=== PATIENT | female | born 1960 | race Two or more races ===

== ENCOUNTER → 2020-01-25 10:59 | Outpatient (BNVA) | payer OTHER, SELFPAY | PROVIDERS: PCP Internal Medicine; Referring Provider Internal Medicine; Visit Provider Internal Medicine Endocrinology, Diabetes & Metabolism | DX: E11.9 Type 2 diabetes mellitus without complications (principal); I10 Essential (primary) hypertension; E78.5 Hyperlipidemia, unspecified; E66.3 Overweight; Z68.25 Body mass index [BMI] 25.0-25.9, adult; E04.9 Nontoxic goiter, unspecified; R00.2 Palpitations; Z79.899 Other long term (current) drug therapy | CPT/HCPCS: 82947; 99202 ==

== ENCOUNTER 2020-01-25 11:54 | Outpatient (REF) | payer OTHER, SELFPAY ==
[2020-01-25 14:06] LABS: Cholesterol 125 mg/dL; HDL Cholesterol 38 mg/dL; LDL Cholesterol Calculated 65 mg/dl; Triglycerides 112 mg/dL
[2020-01-25 14:24] LABS: Creatinine Urine 132.74 mg/dL; Microalbum/Creatinine Ratio Ur 6.7 ug/mg cr
[2020-01-25 14:28] LABS: Free T4 (Free Thyroxine) 1.36 ng/dL (0.71-1.85); Thyroid Stimulating Hormone 0.42 mIU/mL (0.32-4.0)
[2020-01-25 15:05] LABS: Vitamin B12 402 pg/mL (200-900)
[2020-01-27 22:27] LABS: Thyroglobulin Antibodies <1 IU/mL (< or = 1); Thyroid Peroxidase Antibodies 6 IU/mL (<9)
[2020-01-29 10:06] LABS: LDL Cholesterol Direct 63 mg/dL (<100)
== END 2020-01-25 11:55 | disposition home or self-care (01) ==
LOC: HO.10HDL 11:54
PROVIDERS: Visit Provider Internal Medicine Endocrinology, Diabetes & Metabolism
DX: E11.9 Type 2 diabetes mellitus without complications (principal); E04.9 Nontoxic goiter, unspecified
CPT/HCPCS: 36415; 80061; 82043; 82607; 83721; 84439; 84443; 86376; 86800

== ENCOUNTER 2020-01-28 09:10 | Outpatient (REF) | payer OTHER, SELFPAY ==
--- NOTE | 2020-01-28 | MM_ITS ---
EXAMINATION: MM SCREENING DIGITAL BREAST TOMOSYNTHESIS, BILATERAL CLINICAL INFORMATION: Screening. Asymptomatic. No prior breast imaging. Age 59. Family history breast cancer (maternal aunt, 60s). The lifetime risk of breast cancer based on the Tyrer-Cuzick Model is 9%. COMPARISON: None (current study represents initial baseline exam). TECHNIQUE: Digital breast tomosynthesis is performed in both the craniocaudal and mediolateral oblique views along with computer-aided detection (CAD). Synthesized 2D images are generated from the tomosynthesis. FINDINGS: There are scattered areas of fibroglandular density (ACR BI-RADS breast composition Category b). There are no significant masses, abnormal calcifications, or other abnormalities. The axilla and skin contours are unremarkable. MM/MM tomosynthesis screening BI IMPRESSION: No mammographic evidence of malignancy. ASSESSMENT: BI-RADS 1: Negative RECOMMENDATION: Routine annual mammography screening. This patient's information was entered into a reminder system with a target due date for their next mammogram.
== END 2020-01-28 09:11 | disposition home or self-care (01) ==
LOC: HO.MAMMO 09:10
PROVIDERS: PCP Internal Medicine; Visit Provider Internal Medicine
DX: Z12.31 Encounter for screening mammogram for malignant neoplasm of breast (principal)
CPT/HCPCS: 77063; 77067

== ENCOUNTER 2020-01-31 15:53 | Outpatient (REF) | payer OTHER, SELFPAY ==
--- NOTE | 2020-01-31 15:57 | US_ITS ---
EXAMINATION: US THYROID CLINICAL INFORMATION: Nontoxic goiter, unspecified. COMPARISON: None TECHNIQUE: Linear transducer espinosa-scale and color Doppler examination with attention to the region of the thyroid. FINDINGS: SIZE: Measurements of the thyroid lobes and nodules are given in sagittal, anteroposterior and transverse dimensions respectively. Right Thyroid Lobe: 5.8 x 2.5 x 3.1 cm, volume 23.5 mL. Parenchyma: The gland echotexture is heterogeneous. Thyroid vascularity is normal. Left Thyroid Lobe: 5.7 x 1.8 x 1.9 cm, volume 10.2 mL. Parenchyma: The gland echotexture is heterogeneous. Thyroid vascularity is normal. Isthmus: 0.5 cm in maximum AP dimension. RIGHT THYROID LOBE: There are 3 nodules seen. 1. Location: Middle. Size: 4.1 x 2.3 x 3.0 cm. Nodule characteristics: Heterogeneous, smoothly marginated with intranodular flow. 2. Location: Middle. Size: 0.8 x 0.4 x 0.9 cm. Nodule characteristics: Heterogeneous, smoothly marginated with no intranodular flow. 3. Location: Inferior. Size: 0.7 x 0.5 x 0.8 cm. Nodule characteristics: Anechoic, smoothly marginated with echogenic septation and no vascular flow, likely complex cyst. ISTHMUS: There is 1 nodule seen. 1. Location: Mid isthmus. Size: 0.7 x 0.4 x 0.7 cm. Nodule characteristics: Hypoechoic, smoothly marginated with no intranodular flow. LEFT THYROID LOBE: There are 2 nodules seen. 1. Location: Middle. Size: 3.4 x 1.4 x 1.8 cm. Nodule characteristics: Hypoechoic, smoothly marginated with intranodular flow. 2. Location: Inferior. Size: 1.5 x 0.6 x 0.9 cm. Nodule characteristics: Hypoechoic, smoothly marginated with intranodular flow. NODES: No lymphadenopathy is seen in the tissue surrounding the thyroid gland. US/US thyroid IMPRESSION: Bilateral thyroid nodules. There are solitary large complex nodules in the mid poles of both lobes noted. Based on MARISOL guidelines, these nodules should be biopsied by ultrasound. If not, a short-term 6-month followup should be performed.
== END 2020-01-31 15:54 | disposition home or self-care (01) ==
LOC: HO.US 15:53
PROVIDERS: PCP Internal Medicine; Visit Provider Internal Medicine Endocrinology, Diabetes & Metabolism
DX: E04.9 Nontoxic goiter, unspecified (principal)
CPT/HCPCS: 76536

== ENCOUNTER → 2020-02-16 09:56 | Outpatient (BNVA) | payer OTHER, SELFPAY | PROVIDERS: PCP Internal Medicine; Visit Provider Internal Medicine Cardiovascular Disease | DX: R00.2 Palpitations (principal) | CPT/HCPCS: 93005; 99202 ==

== ENCOUNTER → 2020-02-27 08:43 | Outpatient (BNVA) | payer OTHER, SELFPAY | PROVIDERS: PCP Internal Medicine; Referring Provider Internal Medicine; Visit Provider Physician Assistant | DX: Z13.89 Encounter for screening for other disorder (principal) ==

== ENCOUNTER → 2020-03-06 10:46 | Outpatient (BNVA) | payer OTHER, SELFPAY | PROVIDERS: PCP Internal Medicine; Referring Provider Internal Medicine; Visit Provider Dietitian, Registered | DX: Z76.89 Persons encountering health services in other specified circumstances (principal) ==

== ENCOUNTER → 2020-03-13 12:41 | Outpatient (REF) | payer OTHER, SELFPAY ==
--- NOTE | 2020-03-13 12:51 | CA_ITS ---
Transthoracic Echocardiogram Patient (Last, First, Middle): Jyoti Irby, Gender: Female Date of : 1960 Age: 59 Procedure Date: 03/13/2020 Procedure Type: Transthoracic Echocardiogram Location: OP Height: 160.02 cm Weight: 70.31 kg BSA: 1.74 m2 Heart Rate: bpm BP: 102 / 60 mmHg Negative Spotter: Referring MD: Bruno Ellsworth MD Symptoms: R00.2 - Palpitations Study Quality: Good ECG Rhythm: Sinus Conclusions: - The left ventricular systolic function is normal. The visually estimated ejection fraction is between 65-70%. - No obvious valvular pathology seen on this study. Findings Procedure Information Contrast agent, definity, is being given per protocol without apparent complications. Left Ventricle Normal left ventricular cavity size. There is normal left ventricular wall thickness. The left ventricular systolic function is normal. The visually estimated ejection fraction is between 65-70%. There is no evidence of regional wall motion abnormalities. Diastolic function is normal for age. Right Ventricle Normal right ventricular cavity size and systolic function. Atria Both atria are normal in size. Aortic Valve There is a normal trileaflet aortic valve. There is no aortic valve stenosis. There is no aortic valve regurgitation. Mitral Valve The mitral valve appears normal. There is no mitral valve regurgitation. There is no mitral valve stenosis. Pulmonic Valve The pulmonic valve was not well visualized. Tricuspid Valve Normal tricuspid valve structure. There is trace tricuspid valve regurgitation. The pulmonary artery systolic pressure is normal. Great Vessels The aortic annulus, sinuses of valsalva, and asc aorta are normal in size. Venous The inferior vena cava is normal in size and collapses greater than 50% with inspiration. Pericardium/Pleural There is no evidence of pericardial effusion. Prior Study Comparison No prior study available for comparison. Recommendations, Care & Conclusions No obvious valvular pathology seen on this study. Measurements 2D Linear Measurements RVIDd: 2.23 RVIDd Index: 1.28 IVSd: 0.70 0.6-0.9/0.6-1.0 cm LVIDd: 3.38 3.9-5.3/4.2-5.9 cm LVIDd Index: 1.94 2.4-3.2/2.2-3.1 cm/m2 LVIDs: 2.23 2.0-3.6 cm LVPWd: 1.02 0.7-1.1 cm Ao Root: 2.10 2.1-3.5 cm LA Diam: 3.10 2.7-3.8/3.0-4.0 cm LAIDs Index: 1.78 1.5-2.3 cm/m2 LV Mass: 97.47 67-162/88-224 g LV Mass Index: 56.02 43-95/49-115 g/m2 LVOT Diam: 2.00 3.0+(-)1.3 cm 2D Systolic Function EF 4C: 77.10 >55% EF 2C: 81.00 >55% EF BiP: 79.90 >55% Mitral Valve MV Pk E: 0.75 MV PK A: 1.01 MV Decel Time: 240.00 E/A: 0.70 E'Lateral: 8.49 E'Medial: 6.20 E/E' Med: 12.10 E/E' Lat: 8.90 Aortic Valve AoV Pk Man: 1.48 AoV Mn Man: 1.09 AoV VTI: 0.23 AoV Pk Grad: 9.00 Aov Mn Grad: 5.00 BRETT Cont.VTI: 3.04 LVOT LVOT Pk Man: 1.24 LVOT Mn Man: 0.82 LVOT VTI: 0.22 LVOT Pk Grad: 6.00 LVOT Mn Grad: 3.00 LVOT Diam: 2.00 LVOT Area: 3.14 Diastolic Function MV Pk E: 0.75 MV Pk A: 1.01 E/A: 0.70 E'Medial: 6.20 E/E' Med: 12.10 E' Laterial: 8.49 E/E' Lat: 8.90 Tricuspid Valve RA Press: 3.00 Great Vessels Aorta Ao Root-2D: 2.10 2.0-3.7 cm Ao Asc: 2.20 2.1-3.4 cm Ao Arch: 2.10 Updated in Other Vendor System with Status of Final Sarmad So MD electronically signed on 03/14/2020 9:06:08 AM with status of Final
--- NOTE | 2020-03-13 12:52 | HM_ITS ---
INDICATION FOR EVEN MONITOR: Palpitations. TECHNIQUE: The patient was hooked up to cardiac event monitor with mobile telemetry from 03/13/2020 to 04/12/2019 for a total period of 30 days. The patient was continuously monitored during this time. FINDINGS: Baseline rhythm was normal sinus rhythm. Heart rate ranging from 81 beats per minute to 109 beats per minute. There were no arrhythmias noted during the entire event. The patient did not report any symptoms. CONCLUSION: Event monitor is remarkable for: 1. No significant arrhythmias. Baseline normal sinus rhythm. 2. No patient reported symptoms. Matteo Perez MD NRS/MODL / [id number]
== END ==
LOC: HO.CARD 12:41
PROVIDERS: Visit Provider Internal Medicine Cardiovascular Disease
DX: R00.2 Palpitations (principal)
CPT/HCPCS: 93270; 93306; Q9957

== ENCOUNTER 2020-03-24 08:28 | Outpatient (REF) | payer OTHER, SELFPAY ==
[2020-03-24 09:20] LABS: Alanine Aminotransferase 22 U/L (0-31); Albumin Level 4.1 g/dL (3.5-5.0); Alkaline Phosphatase 86 U/L (39-117); Anion Gap 13 (12-20); Aspartate Amino Transferase 18 U/L (5-31); Bilirubin Total 0.4 mg/dL (0.0-1.0); Blood Urea Nitrogen 21 mg/dL (9-16); Calcium 9.5 mg/dL (8.4-10.2); Carbon Dioxide 25 mmol/L (22-29); Chloride 107 mmol/L (96-108); Cholesterol 128 mg/dL; Estimated Glomerular Filt Rate > 60; Glucose Fasting 151 mg/dL (60-99); HDL Cholesterol 36 mg/dL; LDL Cholesterol Calculated 75 mg/dl; Potassium 4.2 mmol/l (3.3-5.1); Sodium 141 mmol/L (135-145); Total Protein 7.5 g/dL (6.5-8.0); Triglycerides 88 mg/dL
[2020-03-24 09:54] LABS: Creatinine Urine 245.17 mg/dL; Microalbum/Creatinine Ratio Ur 6.1 ug/mg cr
== END 2020-03-24 08:29 | disposition home or self-care (01) ==
LOC: HO.LAB 08:28
PROVIDERS: PCP Internal Medicine; Visit Provider Internal Medicine
DX: E78.2 Mixed hyperlipidemia (principal); E11.9 Type 2 diabetes mellitus without complications
CPT/HCPCS: 80053; 80061; 82043

== ENCOUNTER → 2020-04-17 12:22 | Outpatient (BNVA) | payer OTHER, SELFPAY | PROVIDERS: PCP Internal Medicine; Visit Provider Dietitian, Registered ==

== ENCOUNTER → 2020-04-25 10:06 | Outpatient (BNVA) | payer OTHER, SELFPAY | PROVIDERS: PCP Internal Medicine; Referring Provider Internal Medicine; Visit Provider Internal Medicine Endocrinology, Diabetes & Metabolism | DX: E11.65 Type 2 diabetes mellitus with hyperglycemia (principal); I10 Essential (primary) hypertension; E78.5 Hyperlipidemia, unspecified; E04.2 Nontoxic multinodular goiter | CPT/HCPCS: 82947; 99212 ==

== ENCOUNTER → 2020-05-21 10:47 | Outpatient (BNVA) | payer OTHER, SELFPAY | PROVIDERS: PCP Internal Medicine; Visit Provider Internal Medicine Cardiovascular Disease | DX: R00.2 Palpitations (principal); I10 Essential (primary) hypertension; E78.5 Hyperlipidemia, unspecified | CPT/HCPCS: 99212 ==

== ENCOUNTER 2020-05-24 10:48 | Outpatient (REF) | payer OTHER, SELFPAY ==
--- NOTE | 2020-05-24 11:35 | P.BOP_ITS ---
Brief Operative Note Date of Service: 05/24/20 Pre-op diagnosis: NONTOXIC MULTINODULAR GOITER Post-op diagnosis: same Procedure: This procedure was explained to the patient. Alternatives, risks and benefits were discussed. Written consent was obtained. After sterile preparation of the skin, fine-needle aspiration biopsy of left mid pole thyroid nodule size 3.4 x 1.4 x 1.8 cm was performed under direct ultrasound guidance to confirm accurate needle placement. Four passes were performed with 27 gauge needles. Sample was submitted to cytology, initial cytology reading was adequate. Two passes were dedicated for [employer] genomic sequencing dean of admissions test. Second fine-needle aspiration biopsy of left lower pole thyroid nodule size 1.5 x 0.6 x 1 cm was performed under direct ultrasound guidance to confirm accurate needle placement. Three passes were performed with 27 gauge needles. Sample was submitted to cytology, initial cytology reading was coloid only. Two passes were dedicated for [employer] genomic sequencing dean of admissions test. A third fine-needle aspiration biopsy of right side thyroid nodule size 4.1 x 2.3 x 3.0 cm was performed under direct ultrasound guidance to confirm accurate needle placement. Three passes were performed with 27 gauge needles. Sample was submitted to cytology, initial cytology reading was adequate. Two passes were dedicated for [employer] genomic sequencing dean of admissions test. Patient tolerated procedure well. Aftercare instructions were provided. Impression: uncomplicated fine-needle aspiration biopsy of left mid pole , left lower pole and right dominant thyroid nodules under direct ultrasound guidance. Surgeon: Baldemar Bains MD Anesthesia: local (Lidocaine 1 % 3 ml) Estimated blood loss (mL): 0 Condition: stable Disposition: same day
== END 2020-05-24 10:49 | disposition home or self-care (01) ==
LOC: HO.US 10:48
PROVIDERS: Visit Provider Internal Medicine Endocrinology, Diabetes & Metabolism
DX: E04.2 Nontoxic multinodular goiter (principal)
CPT/HCPCS: 10005; 10006; 88172; 88173; 88177

== ENCOUNTER → 2020-06-04 08:49 | Outpatient (BNVA) | payer OTHER, SELFPAY | PROVIDERS: PCP Internal Medicine; Visit Provider Physician Assistant ==

== ENCOUNTER → 2020-06-13 10:51 | Outpatient (BNVA) | payer OTHER, SELFPAY | PROVIDERS: PCP Internal Medicine; Visit Provider Internal Medicine Endocrinology, Diabetes & Metabolism ==

== ENCOUNTER → 2020-06-15 11:41 | Outpatient (BNVA) | payer OTHER, SELFPAY | PROVIDERS: PCP Internal Medicine; Visit Provider Dietitian, Registered ==

== ENCOUNTER 2020-07-12 07:30 | Day surgery (SDC) | payer OTHER, SELFPAY ==
[2020-07-06 13:08] VITALS: BMI 22.1
--- NOTE | 2020-07-11 10:42 | P.CONAN_ITS ---
Documented by User: Odalis Tsangney 07/11/20 10:51 HPI - Anesthesia Eval Consult details Narrative: 59yo F for Colonoscopy Cardiology OV 04/2020 after testing - no signif abnormalities, started on metorprolol for palps PMFSH Active Problems Active Problems: All Active Problems (Updated 06/04/20 @ 09:29 by Sharon Luevano PA-C) Encounter for screening colonoscopy (Acute) Developmental delay, mild (Acute) Thyroid nodule (Acute) Encounter for screening colonoscopy (Acute) Palpitations (Acute) Non-toxic multinodular goiter (Acute) Palpitations (Acute) Goiter (Acute) Overweight (BMI 25.0-29.9) (Acute) Dyslipidemia (Acute) Diabetes mellitus (Acute) Essential hypertension (Acute) Past Medical History Medical History Developmental delay, mild Diabetes mellitus Dyslipidemia Essential hypertension Goiter Non-toxic multinodular goiter Overweight (BMI 25.0-29.9) Palpitations Thyroid nodule Family History Family History Father CAD (coronary artery disease) HTN (hypertension) Mother CAD (coronary artery disease) H/O heart valve replacement with bioprosthetic valve HTN (hypertension) Diabetes Gastrointestinal malignancy Sister HTN (hypertension) Diabetes Atrial fibrillation Familial hyperlipidemia Surgical History Surgical History No pertinent past surgical history Social History Social History Household Members: Family Alcohol intake: never Smoking Status: Never smoker Use of substances other than those prescribed or required for medical reasons: No Have you been hit, kicked, punched, or otherwise hurt by someone within the past year? If so, by whom?: No Advance Directives Information Provided: No Current occupational status: disabled Meds Allergies Allergy/AdvReac Type Severity Reaction Status Date / Time No Known Allergies Allergy Verified 06/04/20 09:00 Home Medications Medication Instructions Recorded Confirmed Last Taken Type atorvastatin 40 mg tablet 40 mg PO DAILY 01/25/20 07/06/20 Unknown History blood sugar diagnostic #10 ea 01/25/20 06/13/20 Unknown History lancets 28 gauge #100 ea 01/25/20 06/13/20 Unknown History pioglitazone 15 mg tablet 15 mg PO DAILY 01/25/20 07/06/20 Unknown History Exam Exam Date and Time: July 11, 2020 1042 Height,Weight and Vital Signs: Height 5 ft Weight 51.4 kg Pertinent Lab Results Pertinent Lab Results: Laboratory Tests 03/24/20 08:40 Sodium 141 Potassium 4.2 Chloride 107 Carbon Dioxide 25 BUN 21 H Creatinine 0.88 Narrative Narrative: ECHO 02/2020 Conclusions: - The left ventricular systolic function is normal. The visually estimated ejection fraction is between 65-70%. - No obvious valvular pathology seen on this study. 30day FABIANA CONCLUSION: Event monitor is remarkable for: 1. No significant arrhythmias. Baseline normal sinus rhythm. 2. No patient reported symptoms. EKG 01/2020 NSR with SA @ [address] abn Assessment and Plan Assessment Anesthesia Assessment: Chart Reviewed Documented by User: Rose Lynch 07/12/20 08:13 [facility] Past Medical History Medical History Developmental delay, mild Diabetes mellitus Dyslipidemia Essential hypertension Goiter Non-toxic multinodular goiter Overweight (BMI 25.0-29.9) Palpitations Thyroid nodule Family History Family History Father CAD (coronary artery disease) HTN (hypertension) Mother CAD (coronary artery disease) H/O heart valve replacement with bioprosthetic valve HTN (hypertension) Diabetes Gastrointestinal malignancy Sister HTN (hypertension) Diabetes Atrial fibrillation Familial hyperlipidemia Surgical History Surgical History No pertinent past surgical history Social History Social History Household Members: Family Alcohol intake: never Smoking Status: Never smoker Use of substances other than those prescribed or required for medical reasons: No Have you been hit, kicked, punched, or otherwise hurt by someone within the past year? If so, by whom?: No Advance Directives Information Provided: No Current occupational status: disabled Meds Allergies Allergy/AdvReac Type Severity Reaction Status Date / Time No Known Allergies Allergy Verified 06/04/20 09:00 Home Medications Medication Instructions Recorded Confirmed Last Taken Type atorvastatin 40 mg tablet 40 mg PO DAILY 01/25/20 07/06/20 Unknown History blood sugar diagnostic #10 ea 01/25/20 06/13/20 Unknown History lancets 28 gauge #100 ea 01/25/20 06/13/20 Unknown History pioglitazone 15 mg tablet 15 mg PO DAILY 01/25/20 07/06/20 Unknown History Exam Airway Mallampati Class: I TM Dist: >3cm Neck ROM: Full Loose/Missing/Broken Teeth: No Heart: RRR Lungs: CTA Assessment and Plan Assessment Anesthesia Assessment: Anesthesia Plan Discussed and Chart Reviewed Final Anesthetic Review NPO: Yes ASA Class: II Final Preanesthetic Review: Meds/Allgs Chart Reviewed, Consent Obtained/Reviewed and Anes Risks/Benef Reviewed Patient Risk: Low Procedure Risk: Low Anesthetic Plan Anesthetic Plan: MAC: Disposition: Standard PACU
[2020-07-12 07:54] LABS: Glucose, Whole Blood 102 mg/dL (60-115)
[2020-07-12 08:07] VITALS: BP 138/67; PULSE 105; RESP 18; TEMP 36.9; O2SAT 100
[2020-07-12] MEDS: Lactated Ringers 1,000 ML 100 ML IVCONT (08:10)
--- NOTE | 2020-07-12 08:14 | W.PM.OPN ---
Operative Note Operative Note Date of Service: 07/12/20 Narrative: Pre-op diagnosis: Colon cancer screening Post-op diagnosis: other (Colon polyps, diverticulosis, hemorrhoids) Procedure: COLONOSCOPY TILL CECUM WITH BIOPSIES Consent: Indications for the procedure and potential complications of bleeding, perforation, reaction to medications and missed diagnosis were discussed with the patient and informed consent was obtained. Instrument: Olympus PCF H 190 L variable stiffness pediatric colonoscope Monitoring: Vital signs and clinical assessment, intermittent blood pressure monitoring, continuous EKG monitoring, Pulse oximetry and Carbon Dioxide monitoring were done throughout the procedure. Colon withdrawl time was 15 minutes. Procedure: The patient was placed in the left lateral decubitis position and pre-procedure medications were administered. After a digital rectal examination of the ano-rectum, the video colonoscope was inserted into the rectum and advanced through the colon to the cecum. The colonoscope was slowly withdrawn in a retrograde panoramic fashion and the colon mucosa was carefully examined including a retroflexed view of the rectum. Findings and interventions are described below. Procedure Difficulty: Without difficulty Findings: Terminal Ileum: Not evaluated Cecum: A 4-5 mm flat polyp removed with the cold biopsy Ascending Colon: A 4-5 mm sessile polyp in the distal ascending colon, removed with the cold biopsy and moderate diverticular Transverse Colon: Moderate diverticulosis Descending Colon: Moderate diverticulosis Sigmoid Colon: Moderate diverticulosis Rectum: Normal Ano-rectum: Moderate internal hemorrhoids Colon preparation: Good after copious irrigation Impression and Post Procedure Diagnosis: Colonoscopy Findings: Two small polyps removed Moderate diverticulosis seen in the entire colon Moderate hemorrhoids on retroflexed exam. Plan: Await pathology results Patient has an appointment on 08/02/20 in the GI Clinic with CALVIN Manrique. Repeat Colonoscopy interval based on path results - in 3-5 years if polyps are adenomatous and 10 years if polyps are hyperplastic. Above findings were reviewed with the patient and [colon polyps] and [diverticulosis] handouts were given in the discharge area Surgeon: Angel Cabrales MD Anesthesia: MAC Urology Physician: Disha Blanchard Estimated blood loss (mL): 0 Pathology: other (A. Cecal polyp x 1, B. AC polyp x 1) Condition: stable Disposition: PACU
--- NOTE | 2020-07-12 08:15 | MHC.SHP ---
Pre-Procedural Eval Section A The patient is an INPATIENT: No The History & Physical has been completed within 30 days and I have reviewed it.: No Section B Chief Complaint: Screening Details of Present Illness: colon cancer screening Relevant Family History (Specify if Yes): Yes Relevant Social History: None Present Medications: see Short Stay Collaborative assessment Medical History: Significant History (Developmental delay, mild Diabetes mellitus Dyslipidemia Essential hypertension Goiter Non-toxic multinodular goiter Overweight (BMI 25.0-29.9) Palpitations Thyroid nodule) History of Previous Operations: No relevant previous surgery Allergies: Allergies Allergy/AdvReac Type Severity Reaction Status Date / Time No Known Allergies Allergy Verified 06/04/20 09:00 Review of Systems Sugical H&P ROS: Negative: Constitution, Cardiovascular, Respiratory and Gastrointestinal Exam Surgical H&P Exam: Normal: Heart, Normal: Lungs, Normal: Extremities and Normal: Abdomen Plan Diagnosis/Plan: Unchanged I have reviewed the history and physical and performed a pertinent physical examination on my patient. No changes have occurred unless specified.
[2020-07-12 09:07] VITALS: BP 87/43; PULSE 85; RESP 20; TEMP 37; O2SAT 100
[2020-07-12 09:10] VITALS: BP 102/58; PULSE 73; RESP 18; O2SAT 100
[2020-07-12 09:22] VITALS: BP 107/55; PULSE 76; RESP 18; O2SAT 100
== END 2020-07-12 10:04 | disposition home or self-care (01) ==
PROVIDERS: PCP Internal Medicine; Visit Provider Internal Medicine Gastroenterology
PROC: 0DJD8ZZ Inspection of Lower Intestinal Tract, Via Natural or Artificial Opening Endoscopic (ICD-10-PCS; CPT 45378; principal; 2020-07-12 08:20)
DX: Z12.11 Encounter for screening for malignant neoplasm of colon (principal); D12.0 Benign neoplasm of cecum; K63.5 Polyp of colon; K57.30 Diverticulosis of large intestine without perforation or abscess without bleeding; K64.8 Other hemorrhoids; R62.50 Unspecified lack of expected normal physiological development in childhood; I10 Essential (primary) hypertension; E11.9 Type 2 diabetes mellitus without complications; Z79.84 Long term (current) use of oral hypoglycemic drugs; Z79.899 Other long term (current) drug therapy
CPT/HCPCS: 45380; 82947; 88305

== ENCOUNTER → 2020-08-02 09:48 | Outpatient (BNVA) | payer OTHER, SELFPAY | PROVIDERS: PCP Internal Medicine; Visit Provider Physician Assistant ==

== ENCOUNTER → 2020-09-06 10:47 | Outpatient (BNVA) | payer OTHER, SELFPAY | PROVIDERS: PCP Internal Medicine; Referring Provider Internal Medicine; Visit Provider Internal Medicine Cardiovascular Disease | DX: R00.2 Palpitations (principal); Z79.899 Other long term (current) drug therapy | CPT/HCPCS: 99212 ==

== ENCOUNTER → 2020-09-21 11:21 | Outpatient (BNVA) | payer OTHER, SELFPAY | PROVIDERS: PCP Internal Medicine; Visit Provider Dietitian, Registered | DX: E11.65 Type 2 diabetes mellitus with hyperglycemia (principal) | CPT/HCPCS: 97803 ==

== ENCOUNTER 2020-11-29 11:07 | Outpatient (REF) | payer OTHER, SELFPAY ==
--- NOTE | ~2020-11-29 | US_ITS ---
EXAMINATION: US THYROID CLINICAL INFORMATION: Nontoxic multinodular goiter. COMPARISON: Ultrasound soft tissue head/neck thyroid dated 01/31/2020 and ultrasound-guided fine-needle aspiration April 2020. TECHNIQUE: Linear transducer grayscale and color Doppler examination with attention to the region of the thyroid. FINDINGS: SIZE: Measurements of the thyroid lobes and nodules are given in sagittal, anteroposterior and transverse dimensions respectively. Right Thyroid Lobe: 6.3 x 3.1 x 3.1 cm, volume 32.0 mL. Previously 5.8 x 2.5 x 3.1 cm, volume 23.5 mL. Parenchyma: The gland echotexture is heterogeneous. Thyroid vascularity is increased. Left Thyroid Lobe: 6.1 x 1.7 x 2.3 cm, volume 12.2 mL. Previously 5.7 x 1.8 x 1.9 cm, volume 10.2 mL. Parenchyma: The gland echotexture is heterogeneous. Thyroid vascularity is increased. Isthmus: 0.4 cm in maximum AP dimension. Previously 0.5 cm. Estimated total number of nodules greater than or equal to 1 cm: 4. Peat Shredder Tender nodules are described as follows: 1. Location: Right mid. Size: 4.6 x 3.3 x 3.0 cm, volume 24.0 mL. Previously: 4.1 x 2.3 x 3.0 cm, volume 14.8 mL. Nodule characteristics: Composition: Solid/almost completely solid (2). Echogenicity: Isoechoic (1). Shape: Taller than wide (3). Margins: Smooth (0). Echogenic Foci: None (0). ACR TI-RADS total points: 6 ACR TI-RADS category: 4 This appears increased in size. Differences in measurement may be due to interobserver variation of nodule margins. Additionally, measuring the nodule with a curved as opposed to linear transducer may be helpful. 2. Location: Right mid. Size: 0.6 x 0.7 x 0.9 cm, volume 0.2 mL. Previously: 0.8 x 0.4 x 0.9 cm, volume 0.2 mL. Nodule characteristics: Composition: Cystic(0). ACR TI-RADS total points: 0 ACR TI-RADS category: 1 Significant change in size (>/= 20% in 2 dimensions and minimal increase of 2 mm or 50% or greater increase in volume): Change in features: Change in ACR TI-RADS risk category: 3. Location: Right inferior. Size: 1.0 x 0.6 x 0.8 cm, volume 0.2 mL. Previously: 0.7 x 0.5 x 0.8 cm, volume 0.14 mL. Nodule characteristics: Composition: Cystic(0). ACR TI-RADS total points: 0 ACR TI-RADS category: 1 Significant change in size (>/= 20% in 2 dimensions and minimal increase of 2 mm or 50% or greater increase in volume): Change in features: Change in ACR TI-RADS risk category: 4. Location: Left mid. Size: 2.8 x 1.3 x 1.9 cm, volume 3.6 mL. Previously: 3.4 x 1.4 x 1.8 cm, volume 4.5 mL. Nodule characteristics: Composition: Mixed cystic and solid (1). Echogenicity: Isoechoic (1). Shape: Not taller than wide (0). Margins: Smooth (0). Echogenic Foci: None (0). ACR TI-RADS total points: 2 ACR TI-RADS category: 2 This is decreased in size and appears more solid and less cystic than on prior exam January 2020. This may be related to changes related to fine-needle aspiration April 2020. 5. Location: Left inferior. Size: 0.8 x 0.3 x 0.7 cm, volume 0.08 mL. Previously: 1.5 x 0.6 x 0.9 cm, volume 0.4 mL. Nodule characteristics: Composition: Solid/almost completely solid (2). Echogenicity: Isoechoic (1). Shape: Not taller than wide (0). Margins: Smooth (0). Echogenic Foci: None (0). ACR TI-RADS total points: 3 ACR TI-RADS category: 3 Significant change in size (>/= 20% in 2 dimensions and minimal increase of 2 mm or 50% or greater increase in volume): Change in features: Change in ACR TI-RADS risk category: NODES: No lymphadenopathy is seen in the tissue surrounding the thyroid gland. US/US thyroid IMPRESSION: Enlarged heterogeneous hypervascular thyroid gland. There is interval increase in size in the dominant nodule in the right lobe. Difference in measurement may be technical. On measuring the nodule with a curved transducer A be more accurate. Interval decrease in size in the dominant left thyroid nodule which now appears more solid. And less cystic. This may be due to previous fine-needle aspiration. ACR TI-RADS RECOMMENDATION REFERENCE: Ultrasound-guided fine-needle aspiration, followup ultrasound, no further follow up. * TR1 (0 point) and TR 2 (2 points): No FNA or follow up * TR3 (3 points): FNA if more than or equal to 2.5 cm in maximum dimension, followup ultrasound in 1, 3 and 5 years if 1.5 to 2.4 cm in maximum dimension. * TR4 (4-6 points): FNA if more than or equal to 1.5 cm in maximum dimension, followup ultrasound in 1, 2, 3 and 5 years if 1 to 1.4 cm in maximum dimension. * TR5 (more than or equal to 7 points): FNA if more than or equal to 1 cm in maximum dimension, followup ultrasound every year for 5 years if 0.5 to 0.9 cm in maximum dimension. * TR3, TR4 or TR5 nodules that are below the size threshold for follow up receive no follow up.
== END 2020-11-29 11:08 | disposition home or self-care (01) ==
LOC: HO.US 11:07
PROVIDERS: Visit Provider Internal Medicine Endocrinology, Diabetes & Metabolism
DX: E04.2 Nontoxic multinodular goiter (principal)
CPT/HCPCS: 76536

== ENCOUNTER → 2021-01-18 07:44 | Outpatient (BNVA) | payer OTHER, SELFPAY | PROVIDERS: PCP Internal Medicine; Visit Provider Nurse Practitioner Gerontology | DX: E11.65 Type 2 diabetes mellitus with hyperglycemia (principal); I10 Essential (primary) hypertension; E78.5 Hyperlipidemia, unspecified; E04.2 Nontoxic multinodular goiter; F81.9 Developmental disorder of scholastic skills, unspecified; Z79.4 Long term (current) use of insulin; Z79.899 Other long term (current) drug therapy | CPT/HCPCS: 82947; 83036; 99212 ==

== ENCOUNTER 2021-01-18 09:25 | Outpatient (REF) | payer OTHER, SELFPAY ==
[2021-01-18 10:38] LABS: Alanine Aminotransferase 36 U/L (0-31); Albumin Level 4.3 g/dL (3.5-5.0); Alkaline Phosphatase 88 U/L (39-117); Anion Gap 15 (12-20); Aspartate Amino Transferase 27 U/L (5-31); Bilirubin Total 0.5 mg/dL (0.0-1.0); Blood Urea Nitrogen 28 mg/dL (9-16); Calcium 9.6 mg/dL (8.4-10.2); Carbon Dioxide 24 mmol/L (22-29); Chloride 109 mmol/L (96-108); Cholesterol 125 mg/dL; Estimated Glomerular Filt Rate > 60; Glucose Fasting 109 mg/dL (60-99); HDL Cholesterol 40 mg/dL; LDL Cholesterol Calculated 75 mg/dl; Potassium 4.5 mmol/L (3.3-5.1); Sodium 143 mmol/L (135-145); Total Protein 7.8 g/dL (6.5-8.0); Triglycerides 50 mg/dL
[2021-01-18 10:59] LABS: Thyroid Stimulating Hormone 1.44 uIU/mL (0.32-4.0)
[2021-01-18 11:00] LABS: Free T4 (Free Thyroxine) 0.99 ng/dL (0.71-1.85)
[2021-01-18 14:12] LABS: Creatinine Urine 97.59 mg/dL; Microalbum/Creatinine Ratio Ur 8.1 ug/mg cr
[2021-01-19 07:31] LABS: LDL Cholesterol Direct 60 mg/dL (<100)
== END 2021-01-18 09:26 | disposition home or self-care (01) ==
LOC: HO.10HDL 09:25
PROVIDERS: Absent Provider Internal Medicine; Visit Provider Nurse Practitioner Gerontology
DX: E11.65 Type 2 diabetes mellitus with hyperglycemia (principal); E78.5 Hyperlipidemia, unspecified
CPT/HCPCS: 36415; 80053; 80061; 82043; 83721; 84439; 84443

== ENCOUNTER → 2021-01-22 10:16 | Outpatient (BNVA) | payer OTHER, SELFPAY | PROVIDERS: PCP Internal Medicine; Visit Provider Dietitian, Registered | DX: E11.9 Type 2 diabetes mellitus without complications (principal) | CPT/HCPCS: 97803 ==

== ENCOUNTER 2021-02-16 10:02 | Outpatient (REF) | payer OTHER, SELFPAY ==
--- NOTE | ~2021-02-16 | MM_ITS ---
EXAMINATION: MM SCREENING DIGITAL BREAST TOMOSYNTHESIS, BILATERAL CLINICAL INFORMATION: Screening. Asymptomatic. The lifetime risk of breast cancer based on the Tyrer-Cuzick Model is 8%. COMPARISON: Mammography: 01/28/2020 (baseline) TECHNIQUE: Digital breast tomosynthesis is performed in both the craniocaudal and mediolateral oblique views along with computer-aided detection (CAD). Synthesized 2D images are generated from the tomosynthesis. FINDINGS: There are scattered areas of fibroglandular density (ACR BI-RADS breast composition Category b). There are no significant masses, abnormal calcifications, or other abnormalities. No significant changes from prior study. MM/MM tomosynthesis screening BI IMPRESSION: No mammographic evidence of malignancy. ASSESSMENT: BI-RADS 1: Negative RECOMMENDATION: Routine annual mammography screening. This patient's information was entered into a reminder system with a target due date for their next mammogram.
== END 2021-02-16 10:03 | disposition home or self-care (01) ==
LOC: HO.MAMMO 10:02
PROVIDERS: PCP Internal Medicine; Visit Provider Internal Medicine
DX: Z12.31 Encounter for screening mammogram for malignant neoplasm of breast (principal)
CPT/HCPCS: 77063; 77067

== ENCOUNTER → 2021-02-20 10:05 | Outpatient (BNVA) | payer OTHER, SELFPAY | PROVIDERS: PCP Internal Medicine; Visit Provider Dietitian, Registered | DX: E11.9 Type 2 diabetes mellitus without complications (principal) | CPT/HCPCS: 97803 ==

== ENCOUNTER → 2021-04-01 10:43 | Outpatient (BNVA) | payer OTHER, SELFPAY | PROVIDERS: PCP Internal Medicine; Visit Provider Dietitian, Registered | DX: E11.9 Type 2 diabetes mellitus without complications (principal) | CPT/HCPCS: 97803 ==

== ENCOUNTER 2021-06-20 09:51 | Outpatient (REF) | payer OTHER, SELFPAY ==
--- NOTE | 2021-06-20 10:28 | PM.OP ---
Brief Operative Note Date of Service: 06/20/21 Pre-op diagnosis: Multinodular Thyroid Procedure: This is doctor Cherry Floyd. This is an ultrasound-guided fine-needle aspiration report. Date of Examination: 06/20/2021 Indication: Multinodular Thyroid Porcedure: Procedure was explained to the patient. Alternatives, the risk and benefits were discussed. Written consent was obtained. A time-out was also obtained. After sterile preparation, fine-needle aspiration of a right mid pole 4.6 cm thyroid nodule was performed using direct ultrasound guidance to confirm accurate needle placement. Four aspirations were made using 27 gauge needles. Samples were submitted for cytology. One pass was dedicated for [employer] Gene sequencing bone crusher testing. The patient tolerated the procedure well. Aftercare instructions were provided. The right lower pole 1.0 cm thyroid nodule was spongiform and did not meet indication for FNA biopsy. Her left mid pole and left lower pole nodules had previously been biopsied by Dr. Sotelo and did not show sufficient growth or change since prior. Impression: Uncomplicated fine needle aspiration biopsy of a right mid pole 4.6 cm thyroid nodule under ultrasound guidance. Surgeon: Cherry Floyd, DO Was an Human Resource Intern used for this Procedure?: No Estimated blood loss (mL): 0
[2021-06-20 12:18] LABS: Thyroid Stimulating Hormone 0.53 uIU/mL (0.32-4.0)
[2021-06-20 12:31] LABS: Creatinine Urine 110.32 mg/dL; Microalbum/Creatinine Ratio Ur 5.4 ug/mg cr
[2021-06-20 12:44] LABS: Alanine Aminotransferase 23 U/L (0-31); Alkaline Phosphatase 67 U/L (39-117); Anion Gap 13 (12-20); Aspartate Amino Transferase 17 U/L (5-31); Bilirubin Total 0.7 mg/dL (0.0-1.0); Blood Urea Nitrogen 30 mg/dL (9-16); Calcium 9.5 mg/dL (8.4-10.2); Carbon Dioxide 26 mmol/L (22-29); Chloride 107 mmol/L (96-108); Cholesterol 129 mg/dL; Estimated Glomerular Filt Rate > 60; Glucose Fasting 185 mg/dL (60-99); HDL Cholesterol 48 mg/dL; LDL Cholesterol Calculated 68 mg/dl; Potassium 3.9 mmol/L (3.3-5.1); Sodium 142 mmol/L (135-145); Total Protein 7.3 g/dL (6.5-8.0); Triglycerides 67 mg/dL
== END 2021-06-20 09:52 | disposition home or self-care (01) ==
LOC: HO.US 09:51
PROVIDERS: PCP Internal Medicine; Visit Provider Internal Medicine
DX: E04.2 Nontoxic multinodular goiter (principal); E11.9 Type 2 diabetes mellitus without complications; E78.5 Hyperlipidemia, unspecified
CPT/HCPCS: 10005; 36415; 80053; 80061; 82043; 84439; 84443; 88172; 88173

== ENCOUNTER → 2021-07-01 09:44 | Outpatient (BNVA) | payer OTHER, SELFPAY | PROVIDERS: PCP Internal Medicine; Visit Provider Dietitian, Registered | DX: E11.9 Type 2 diabetes mellitus without complications (principal); Z71.3 Dietary counseling and surveillance | CPT/HCPCS: 97803 ==

== ENCOUNTER → 2021-07-23 10:48 | Outpatient (BNVA) | payer OTHER, SELFPAY | PROVIDERS: PCP Internal Medicine; Visit Provider Nurse Practitioner Gerontology | DX: E11.9 Type 2 diabetes mellitus without complications (principal); I10 Essential (primary) hypertension; E78.5 Hyperlipidemia, unspecified; Z79.84 Long term (current) use of oral hypoglycemic drugs | CPT/HCPCS: 82947; 99212 ==

== ENCOUNTER → 2021-08-01 08:33 | Outpatient (BNVA) | payer OTHER, SELFPAY | PROVIDERS: PCP Internal Medicine; Visit Provider Internal Medicine | DX: Z13.89 Encounter for screening for other disorder (principal) ==

== ENCOUNTER → 2021-09-03 10:26 | Outpatient (BNVA) | payer OTHER, SELFPAY | PROVIDERS: PCP Internal Medicine; Visit Provider Dietitian, Registered | DX: E11.9 Type 2 diabetes mellitus without complications (principal); Z71.3 Dietary counseling and surveillance | CPT/HCPCS: 97803 ==

== ENCOUNTER → 2021-09-05 10:48 | Outpatient (BNVA) | payer OTHER, SELFPAY | PROVIDERS: PCP Internal Medicine; Referring Provider Internal Medicine; Visit Provider Internal Medicine Cardiovascular Disease | DX: I10 Essential (primary) hypertension (principal) | CPT/HCPCS: 93005; 99212 ==

== ENCOUNTER → 2021-12-04 10:03 | Outpatient (BNVA) | payer OTHER, SELFPAY | PROVIDERS: PCP Internal Medicine; Visit Provider Dietitian, Registered | DX: E11.9 Type 2 diabetes mellitus without complications (principal) | CPT/HCPCS: 97803 ==

== ENCOUNTER 2022-02-22 10:14 | Outpatient (REF) | payer OTHER, SELFPAY ==
--- NOTE | ~2022-02-22 | MM_ITS ---
EXAMINATION: MM SCREENING DIGITAL BREAST TOMOSYNTHESIS, BILATERAL CLINICAL INFORMATION: Screening. Asymptomatic. The lifetime risk of breast cancer based on the Tyrer-Cuzick Model is 9%. COMPARISON: Mammography: 02/16/2021, 01/28/2020 (baseline) TECHNIQUE: Digital breast tomosynthesis is performed in both the craniocaudal and mediolateral oblique views along with computer-aided detection (CAD). Synthesized 2D images are generated from the tomosynthesis. FINDINGS: There are scattered areas of fibroglandular density (ACR BI-RADS breast composition Category b). There are no significant masses, abnormal calcifications, or other abnormalities. Parenchymal pattern is similar to prior studies. There is no developing density or architectural abnormality. The axilla and skin contours are unremarkable. No significant changes. MM/MM tomosynthesis screening BI IMPRESSION: No mammographic evidence of malignancy. ASSESSMENT: BI-RADS 1: Negative RECOMMENDATION: Routine annual mammography screening. This patient's information was entered into a reminder system with a target due date for their next mammogram.
== END 2022-02-22 10:15 | disposition home or self-care (01) ==
LOC: HO.MAMMO 10:14
PROVIDERS: PCP Internal Medicine; Visit Provider Internal Medicine
DX: Z12.31 Encounter for screening mammogram for malignant neoplasm of breast (principal)
CPT/HCPCS: 77063; 77067

== ENCOUNTER → 2022-06-03 10:26 | Outpatient (BNVA) | payer OTHER, SELFPAY | PROVIDERS: PCP Internal Medicine; Visit Provider Dietitian, Registered | DX: E11.9 Type 2 diabetes mellitus without complications (principal); Z71.3 Dietary counseling and surveillance | CPT/HCPCS: 97803 ==

== ENCOUNTER 2022-07-24 14:55 | Outpatient (REF) | payer OTHER, SELFPAY ==
--- NOTE | ~2022-07-24 | US_ITS ---
EXAMINATION: US THYROID CLINICAL INFORMATION: Nontoxic multinodular goiter. COMPARISON: Ultrasound soft tissue head/neck thyroid dated 11/29/2020 and 01/31/2020. TECHNIQUE: Linear transducer grayscale and color Doppler examination with attention to the region of the thyroid. FINDINGS: SIZE: Measurements of the thyroid lobes and nodules are given in sagittal, anteroposterior and transverse dimensions respectively. Right Thyroid Lobe: 6.3 x 3.3 x 3.2 cm, volume 35.1 mL. Previously 6.3 x 3.1 x 3.1 cm, volume 32.0 mL. Parenchyma: The gland echotexture is heterogeneous. Thyroid vascularity is increased. Left Thyroid Lobe: 6.1 x 1.9 x 2.4 cm, volume 14.2 mL. Previously 6.1 x 1.7 x 2.3 cm, volume 12.2 mL. Parenchyma: The gland echotexture is heterogeneous. Thyroid vascularity is increased. Isthmus: 0.7 cm in maximum AP dimension. Previously 0.4 cm. Estimated total number of nodules greater than or equal to 1 cm: 5. Tailman nodules are described as follows: 1. Location: Isthmus. Size: 1.5 x 1.0 x 1.5 cm, volume 1.2 mL. Previously: 0.3 x 0.2 x 0.3 cm, volume 0.01 mL. Nodule characteristics: Composition: Solid (2). Echogenicity: Isoechoic (1). Shape: Not taller than wide (0). Margins: Smooth (0). Echogenic Foci: None (0). ACR TI-RADS total points: 3 Previous: 3 ACR TI-RADS category: n/a Previous: n/a Significant change in size (>/= 20% in 2 dimensions and minimal increase of 2 mm or 50% or greater increase in volume): Change in features: Change in ACR TI-RADS risk category: n/a 2. Location: Right mid. Size: 4.7 x 3.6 x 3.3 cm, volume 28.6 mL. Previously: 4.6 x 3.3 x 3.0 cm, volume 24.0 mL. Nodule characteristics: Composition: Solid (2). Echogenicity: Isoechoic (1). Shape: Taller than wide (3). Margins: Ill-defined (0). Echogenic Foci: None (0). ACR TI-RADS total points: 6 Previous: 4 ACR TI-RADS category: 6 Previous: 4 Significant change in size (>/= 20% in 2 dimensions and minimal increase of 2 mm or 50% or greater increase in volume): Change in features: Change in ACR TI-RADS risk category: Yes 3. Location: Right mid. Size: 1.3 x 1.2 x 1.5 cm, volume 1.2 mL. Previously: 0.6 x 0.9 x 0.7 cm, volume 0.2 mL. Nodule characteristics: Composition: Mixed cystic and solid (1). Echogenicity: Isoechoic (1). Shape: Not taller than wide (0). Margins: Smooth (0). Echogenic Foci: Comet-tail artifacts (0). ACR TI-RADS total points: 2 Previous: 0 ACR TI-RADS category: 2 Previous: 1 This is now complex cystic with solid component. Significant change in size (>/= 20% in 2 dimensions and minimal increase of 2 mm or 50% or greater increase in volume): Change in features: Change in ACR TI-RADS risk category: Yes 4. Location: Left mid. Size: 4.3 x 1.4 x 2.3 cm, volume 7.5 mL. Previously: 2.8 x 1.3 x 1.9 cm, volume 3.6 mL. Nodule characteristics: Composition: Solid/almost completely solid (2). Echogenicity: Isoechoic (1). Shape: Not taller than wide (0). Margins: Smooth (0). Echogenic Foci: Punctate echogenic foci (3). ACR TI-RADS total points: 6 Previous: 2 ACR TI-RADS category: 4 Previous: 2 Significant change in size (>/= 20% in 2 dimensions and minimal increase of 2 mm or 50% or greater increase in volume): Change in features: Change in ACR TI-RADS risk category: Yes 5. Location: Left superior/mid. Size: 1.5 x 0.4 x 1.1 cm, volume 0.3 mL. Previously: 0.8 x 0.7 x 0.3 cm, volume 0.08 mL. Nodule characteristics: Composition: Solid/almost completely solid (2). Echogenicity: Isoechoic (1). Shape: Not taller than wide (0). Margins: Smooth (0). Echogenic Foci: Comet-tail artifacts (0). ACR TI-RADS total points: 3 Previous: 3 ACR TI-RADS category: 3 Previous: 3 Significant change in size (>/= 20% in 2 dimensions and minimal increase of 2 mm or 50% or greater increase in volume): Change in features: Change in ACR TI-RADS risk category: No NODES: No lymphadenopathy is seen in the tissue surrounding the thyroid gland. US/US thyroid IMPRESSION: Enlarged heterogeneous hypervascular thyroid gland with multiple bilateral thyroid nodules. Comparison with prior exam for some nodules is difficult. There is interval increase in the isthmus, right mid, left mid and left superior to mid nodules. According to TI RADS criteria, fine-needle aspiration of the left mid nodule would be recommended and ultrasound follow-up of the remainder of the nodules at 1, 2, 3 and 5 years . ACR TI-RADS RECOMMENDATION REFERENCE: Ultrasound-guided fine-needle aspiration, followup ultrasound, no further follow up. * TR1 (0 point) and TR2 (2 points): No FNA or follow up * TR3 (3 points): FNA if more than or equal to 2.5 cm in maximum dimension, followup ultrasound in 1, 3 and 5 years if 1.5 to 2.4 cm in maximum dimension. * TR4 (4-6 points): FNA if more than or equal to 1.5 cm in maximum dimension, followup ultrasound in 1, 2, 3 and 5 years if 1 to 1.4 cm in maximum dimension. * TR5 (more than or equal to 7 points): FNA if more than or equal to 1 cm in maximum dimension, followup ultrasound every year for 5 years if 0.5 to 0.9 cm in maximum dimension. * TR3, TR4 or TR5 nodules that are below the size threshold for follow up receive no follow up.
[2022-07-24 18:16] LABS: Free T4 (Free Thyroxine) 0.96 ng/dL (0.71-1.85); Thyroid Stimulating Hormone 0.43 uIU/mL (0.32-4.0); Vitamin D 25-OH Total 33.6 ng/mL (>30)
== END 2022-07-24 14:56 | disposition home or self-care (01) ==
LOC: HO.US 14:55
PROVIDERS: Absent Provider Internal Medicine; PCP Internal Medicine; Visit Provider Internal Medicine
DX: E04.2 Nontoxic multinodular goiter (principal); E55.9 Vitamin D deficiency, unspecified
CPT/HCPCS: 36415; 76536; 82306; 84439; 84443

== ENCOUNTER → 2022-07-28 10:17 | Outpatient (BNVA) | payer OTHER, SELFPAY | PROVIDERS: PCP Internal Medicine; Visit Provider Internal Medicine | DX: E04.2 Nontoxic multinodular goiter (principal) | CPT/HCPCS: 99212 ==

== ENCOUNTER → 2022-09-18 14:21 | Outpatient (BNVA) | payer OTHER, SELFPAY | PROVIDERS: PCP Internal Medicine; Referring Provider Internal Medicine; Visit Provider Nurse Practitioner Family | DX: R00.2 Palpitations (principal); I10 Essential (primary) hypertension; E78.5 Hyperlipidemia, unspecified; E11.9 Type 2 diabetes mellitus without complications | CPT/HCPCS: 93005; 99212 ==

== ENCOUNTER → 2022-10-02 12:06 | Outpatient (BNVA) | payer OTHER, SELFPAY | PROVIDERS: PCP Internal Medicine; Visit Provider Dietitian, Registered | DX: E11.9 Type 2 diabetes mellitus without complications (principal) | CPT/HCPCS: 97803 ==

== ENCOUNTER 2022-11-06 09:44 | Outpatient (REF) | payer OTHER, SELFPAY ==
--- NOTE | 2022-11-06 10:22 | P.BOP_ITS ---
Brief Operative Note Date of Service: 11/06/22 Pre-op diagnosis: Multinodular Thyroid Procedure: A repeat ultrasound was performed today to evaluate the thyroid gland. She was found to have multiple large nodules. Her right mid to lower pole nodule does extend substernally and she did exhibit a positive naheed sign from this. We had a discussion regarding my recommendation for a total thyroidectomy, and she is in agreement with this. I did review this with her brother as well. I will send a referral fo the Endocrine surgeon now. Surgeon: Cherry Floyd, DO Was an Dielectric Press Operator used for this Procedure?: No Estimated blood loss (mL): 0
[2022-11-06 11:38] LABS: Creatinine Urine 106.58 mg/dL; Microalbum/Creatinine Ratio Ur 6.5 ug/mg cr
[2022-11-06 11:56] LABS: Alanine Aminotransferase 16 U/L (0-31); Albumin Level 3.9 g/dL (3.5-5.0); Alkaline Phosphatase 81 U/L (39-117); Anion Gap 11 (12-20); Aspartate Amino Transferase 19 U/L (5-31); Bilirubin Total 0.4 mg/dL (0.0-1.0); Blood Urea Nitrogen 26 mg/dL (9-16); Calcium 9.6 mg/dL (8.4-10.2); Carbon Dioxide 25 mmol/L (22-29); Chloride 110 mmol/L (96-108); Cholesterol 135 mg/dL; Estimated Glomerular Filt Rate > 60; Glucose Fasting 119 mg/dL (60-99); HDL Cholesterol 48 mg/dL; LDL Cholesterol Calculated 76 mg/dl; Potassium 4.2 mmol/L (3.3-5.1); Sodium 142 mmol/L (135-145); Triglycerides 57 mg/dL
[2022-11-06 12:16] LABS: Vitamin D 25-OH Total 31.6 ng/mL (>30)
== END 2022-11-06 09:45 | disposition home or self-care (01) ==
LOC: HO.US 09:44
PROVIDERS: PCP Internal Medicine; Visit Provider Internal Medicine
DX: E04.2 Nontoxic multinodular goiter (principal); E11.9 Type 2 diabetes mellitus without complications; E55.9 Vitamin D deficiency, unspecified; E78.5 Hyperlipidemia, unspecified
CPT/HCPCS: 36415; 76536; 80053; 80061; 82043; 82306

== ENCOUNTER → 2022-11-06 09:44 | Outpatient (BNV) | payer OTHER, SELFPAY | PROVIDERS: PCP Internal Medicine; Visit Provider Internal Medicine | DX: E04.2 Nontoxic multinodular goiter (principal) | CPT/HCPCS: 76536 ==

== ENCOUNTER 2022-11-11 10:25 | Outpatient (AMB) | payer OTHER, SELFPAY ==
[2022-11-11 10:36] VITALS: BP 118/60; PULSE 88; O2SAT 97; BMI 24.6
--- NOTE | 2022-11-11 10:36 | A.OFFPC_ITS ---
Vital Signs 11/11/22 10:36 Height 5 ft 1 in Weight 130 lb 2 oz BMI 24.6 BP 118/60 Pulse 88 Pulse Source Pulse Oximeter Pulse Oximetry (%) 97 Oxygen Delivery Method Room Air Intake Visit Reasons: dm Intake Note: Pt is here today for DM Type II F/U. Mortgage Accounting Clerk Required: No Accompanied by: Self / Same As Patient Allergies No Known Allergies Allergy (Verified 11/11/22 10:46) Medication List - Last Reconciled 11/11/22 by Faith Ny MD amlodipine 2.5 mg PO DAILY 90 days atorvastatin 40 mg PO DAILY blood pressure monitor As directed blood sugar diagnostic (FreeStyle Lite Strips) Use 1 test strip once a day blood sugar diagnostic As directed blood-glucose meter (FreeStyle Lite Meter kit) As directed dulaglutide (Trulicity) 0.75 mg (0.5 mL) subcut QWEEK 90 days flash glucose sensor (FreeStyle Raymond 14 Day Sensor kit) every 14 days lancets (FreeStyle Lancets) Use 1 lancet once a day lancets As directed lisinopril 40 mg PO DAILY 90 days metoprolol succinate ER 25 mg PO DAILY nystatin 1 appl topical BID 2 weeks Tobacco use date assessed: 07/03/22 Dental Screening Dental Screen Date: 11/11/22 Did you have a dental visit in the last 12 months?: No Did you have a dental problem in the last 6 months where you did not have access to dental care?: No Was dental information given to patient?: Yes HPI HPI Comments History of Present Illness Details This is a 61-year-old female with mild developmental delay, diabetes mellitus, hypertension and dyslipidemia that comes today complaining of dry cough that started 7-10 days ago. No fever or nasal congestion. Last week she had a thyroid biopsy in which results are pending. A1c within goal. Blood pressure stable. LDL very close to goal. No chest pain or shortness of breath. [facility] Medical History (Updated 11/11/22 @ 10:55 by Faith Ny MD) Candidal intertrigo Developmental delay, mild Diabetes mellitus Dyslipidemia Essential hypertension Goiter Non-toxic multinodular goiter Overweight (BMI 25.0-29.9) Palpitations Physical exam Thyroid nodule Vitamin D deficiency Surgical History No pertinent past surgical history Family History Father CAD (coronary artery disease) HTN (hypertension) Mother CAD (coronary artery disease) H/O heart valve replacement with bioprosthetic valve HTN (hypertension) Diabetes Gastrointestinal malignancy Sister HTN (hypertension) Diabetes Atrial fibrillation Familial hyperlipidemia Social History Household Members: Family Household Members Other:: Sister Joanie Housing: Apartment Alcohol intake: never Patient Tobacco Use Status: Never used Tobacco e-Cigarette/Vaping Use: Never Used Second Hand Smoke Exposure: No service: No Current occupational status: disabled Cognitive needs: No Hearing needs: No Vision needs: No Questionnaire Thrive Questionnaire Date Thrive assessed: 07/03/22 ANGELA-7 AMB Questionnaire ANGELA-7 Date ANGELA - 7 assessed: 07/03/22 Source: Developed by Drs. Ke Gamble, Lina Acosta, Harshad Perez and colleagues, with an educational dallin from [employer]. Review of Systems Const All systems reviewed & are unremarkable except as noted in HPI and below Eyes Reports no additional complaints, Denies change in vision and Denies other visual disturbances Card Denies chest pain at rest, Denies chest pain with activity, Denies edema, Denies irregular heart rhythm, Denies claudication, Denies dyspnea, Denies dyspnea on exertion, Denies orthopnea, Denies paroxysmal nocturnal dyspnea and Denies slow heart rate Resp Reports cough, Denies dyspnea and Denies dyspnea on exertion GI Denies abdominal pain, Denies change in bowel habits, Denies excessive flatus, Denies nausea and Denies vomiting Denies urinary incontinence, Denies urinary hesitancy and Denies urinary urgency Musc Denies abnormal gait, Denies atrophy, Denies deformity and Denies limited range of motion Skin/Breast Denies bleeding lesions, Denies changing lesions and Denies rash Neuro Denies abnormal gait and Denies lack of coordination Physical exam (Primary Care) Vital Signs: Last Vital Signs Pulse 88 11/11/22 10:36 BP 118/60 11/11/22 10:36 Pulse Ox 97 11/11/22 10:36 Oxygen Delivery Method Room Air 11/11/22 10:36 BMI result Body Mass Index 24.6 Tobacco/Smoking Status: Tobacco use Status Tobacco use date assessed 07/03/22 11/11/22 10:39 Patient Tobacco Use Status Never used Tobacco 11/11/22 10:39 e-Cigarette/Vaping Use Never Used 11/11/22 10:39 Thrive Assessment: Date of Thrive Assessment Date Thrive assessed 07/03/22 11/11/22 10:39 Eyes General: appearance normal, both eyes and all related structures Eyelids: Yes eyelids normal Conjunctivae: conjunctivae normal Neck Neck: Yes normal visual inspection and Yes supple Resp Effort & Inspection: normal respiratory effort Auscultation: clear to auscultation bilaterally Cardio Jugular venous distension: no JVD Rate: regular rate Rhythm: regular rhythm Heart sounds: S1 normal heart sound present and S2 normal heart sound present Extrem General: Yes full ROM Results AMB Hemoglobin A1c AMB Hemoglobin A1c 6.3 % Last Edit by VANITA Hassan on 11/11/22 10:44 Results Reviewed Results Reviewed: Laboratory Last Values Hgb A1c (Clinic) 6.3 % (4.0-6.0) H 11/11/22 10:34 Assessment and Plan Assessment & Plan (1) Essential hypertension: Code(s): I10 - Essential (primary) hypertension Plan: Continue lisinopril and amlodipine. Blood pressure goal is equal or less than 130/80. (2) Diabetes mellitus: Code(s): E11.9 - Type 2 diabetes mellitus without complications Qualifiers: Diabetes mellitus type: type 2 Diabetes mellitus long term care phlebotomist insulin use: without mcc use Diabetes mellitus complication status: without complication Qualified Code(s): E11.9 - Type 2 diabetes mellitus without complications Plan: Continue Trulicity. A1c goal is equal or less than 7%. (3) Dyslipidemia: Code(s): E78.5 - Hyperlipidemia, unspecified Plan: Continue statins. LDL goal should be less than 70. (4) Cough: Code(s): R05.9 - Cough, unspecified Plan: X-ray ordered Orders: Orders XR chest 2V Today R05.9 - Cough, unspecified Comprehensive [place]. Panel Fast 4 Months R00.2 - Palpitations Lipid Panel 4 Months E78.5 - Hyperlipidemia, unspecified Vitamin D 25-OH Total 4 Months E55.9 - Vitamin D deficiency, unspecified Microalbumin, Random (w Creat) 4 Months E11.9 - Type 2 diabetes mellitus without complications AMB Hemoglobin A1c Today E11.9 - Type 2 diabetes mellitus without complications Coding Level of Care Code Est Pt Level 4 (32727) Diagnoses Essential hypertension I10 Diabetes mellitus E11.9 Diabetes mellitus type: type 2 Diabetes mellitus mcc insulin use: without mcc use Diabetes mellitus complication status: without complication Dyslipidemia E78.5 Cough R05.9 Time Spent (min) 21
== END 2022-11-11 10:58 | disposition home or self-care (01) ==
PROVIDERS: PCP Internal Medicine; Visit Provider Internal Medicine
DX: I10 Essential (primary) hypertension (principal); E11.9 Type 2 diabetes mellitus without complications; E78.5 Hyperlipidemia, unspecified; R05.9 Cough, unspecified
CPT/HCPCS: 83036; 99214

== ENCOUNTER 2022-11-11 11:08 | Outpatient (REF) | payer OTHER, SELFPAY ==
--- NOTE | ~2022-11-11 | XR_ITS ---
EXAMINATION: XR CHEST 2 VIEWS CLINICAL INFORMATION: Cough. COMPARISON: None. TECHNIQUE: Frontal and lateral views of the chest were obtained. FINDINGS: The heart, great vessels, pulmonary vasculature and mediastinum are normal. The lungs show no focal infiltrate, effusion or pneumothorax. There is mild elevation of the right hemidiaphragm. There is no acute osseous abnormality. There is multi-level mild thoracic spondylosis. XR/XR chest 2V IMPRESSION: No active cardiopulmonary disease.
== END 2022-11-11 11:09 | disposition home or self-care (01) ==
LOC: HO.XRAY 11:08
PROVIDERS: PCP Internal Medicine; Visit Provider Internal Medicine
DX: R05.9 Cough, unspecified (principal)
CPT/HCPCS: 71046

== ENCOUNTER 2023-02-28 10:30 | Outpatient (REF) | payer OTHER, SELFPAY | END 2023-02-28 10:31 | disposition home or self-care (01) | LOC: HO.MAMMO 10:30 | PROVIDERS: PCP Internal Medicine; Visit Provider Internal Medicine | DX: Z12.31 Encounter for screening mammogram for malignant neoplasm of breast (principal) | CPT/HCPCS: 77063; 77067 ==

== ENCOUNTER → 2023-02-28 10:45 | Outpatient (BNV) | payer OTHER, SELFPAY | PROVIDERS: PCP Internal Medicine; Visit Provider Radiology Diagnostic Radiology | DX: Z12.31 Encounter for screening mammogram for malignant neoplasm of breast (principal) | CPT/HCPCS: 77063; 77067 ==

== ENCOUNTER 2023-03-18 09:44 | Outpatient (AMB) | payer OTHER, SELFPAY ==
--- NOTE | 2023-03-18 09:46 | A.OFFPC_ITS ---
Vital Signs 03/18/23 09:49 Height 5 ft 1 in Weight 134 lb BMI 25.3 BP 112/68 Blood Pressure Location Lt brachial Position Sitting Intake Visit Reasons: 4 month f/u Intake Note: Patient here for a 4 month follow up Associate Program Manager Required: No Accompanied by: Self / Same As Patient Allergies No Known Allergies Allergy (Verified 03/18/23 09:58) Medication List - Last Reconciled 03/18/23 by Faith Ny MD amlodipine 2.5 mg PO DAILY 90 days atorvastatin 40 mg PO DAILY blood pressure monitor As directed blood sugar diagnostic (FreeStyle Lite Strips) Use 1 test strip once a day blood sugar diagnostic As directed blood-glucose meter (FreeStyle Lite Meter kit) As directed dulaglutide (Trulicity) 0.75 mg (0.5 mL) subcut QWEEK 90 days flash glucose sensor (FreeStyle Raymond 14 Day Sensor kit) every 14 days lancets (FreeStyle Lancets) Use 1 lancet once a day lancets As directed lisinopril 40 mg PO DAILY 90 days metoprolol succinate ER 25 mg PO DAILY nystatin 1 appl topical BID 2 weeks Tobacco use date assessed: 07/03/22 Dental Screening Dental Screen Date: 03/18/23 Did you have a dental visit in the last 12 months?: No Did you have a dental problem in the last 6 months where you did not have access to dental care?: No Was dental information given to patient?: Patient has dentist HPI HPI Comments History of Present Illness Details This is a 62-year-old female with diabetes mellitus type 2, hypertension and dyslipidemia that comes today for follow-up on her conditions. Has mild developmental delay but can follow simple commands. A1c within goal but says that the blood glucose has been in the 200s frequently. I will increase Trulicity. Blood pressure stable. Last LDL was very close to goal and lipid panel will be repeated. No chest pain or shortness of breath. [facility] Medical History Vitamin D deficiency Candidal intertrigo Physical exam Developmental delay, mild Thyroid nodule Non-toxic multinodular goiter Palpitations Goiter Overweight (BMI 25.0-29.9) Dyslipidemia Diabetes mellitus Essential hypertension Surgical History No pertinent past surgical history Family History Father CAD (coronary artery disease) HTN (hypertension) Mother CAD (coronary artery disease) H/O heart valve replacement with bioprosthetic valve HTN (hypertension) Diabetes Gastrointestinal malignancy Sister HTN (hypertension) Diabetes Atrial fibrillation Familial hyperlipidemia Social History Household Members: Family Household Members Other:: Sister Joanie Housing: Apartment Alcohol intake: never Patient Tobacco Use Status: Never used Tobacco e-Cigarette/Vaping Use: Never Used Second Hand Smoke Exposure: No service: No Current occupational status: disabled Cognitive needs: No Hearing needs: No Vision needs: No Questionnaire Thrive Questionnaire Date Thrive assessed: 07/03/22 ANGELA-7 AMB Questionnaire ANGELA-7 Date ANGELA - 7 assessed: 07/03/22 Source: Developed by Drs. Ke Gamble, Lina Acosta, Harshad Perez and colleagues, with an educational dallin from [facility]. Review of Systems Const All systems reviewed & are unremarkable except as noted in HPI and below Eyes Reports no additional complaints, Denies change in vision and Denies other visual disturbances Card Denies chest pain at rest, Denies chest pain with activity, Denies edema, Denies irregular heart rhythm, Denies claudication, Denies dyspnea, Denies dyspnea on exertion, Denies orthopnea, Denies paroxysmal nocturnal dyspnea and Denies slow heart rate Resp Denies cough, Denies dyspnea and Denies dyspnea on exertion GI Denies abdominal pain, Denies change in bowel habits, Denies excessive flatus, Denies nausea and Denies vomiting Denies urinary incontinence, Denies urinary hesitancy and Denies urinary urgency Musc Denies abnormal gait, Denies atrophy, Denies deformity and Denies limited range of motion Skin/Breast Denies bleeding lesions, Denies changing lesions and Denies rash Neuro Denies abnormal gait and Denies lack of coordination Physical exam (Primary Care) Vital Signs: Last Vital Signs BP 112/68 03/18/23 09:49 BMI result Body Mass Index 25.3 Tobacco/Smoking Status: Tobacco use Status Tobacco use date assessed 07/03/22 03/18/23 09:52 Patient Tobacco Use Status Never used Tobacco 03/18/23 09:52 e-Cigarette/Vaping Use Never Used 03/18/23 09:52 Thrive Assessment: Date of Thrive Assessment Date Thrive assessed 07/03/22 03/18/23 09:52 Eyes General: appearance normal, both eyes and all related structures Eyelids: Yes eyelids normal Conjunctivae: conjunctivae normal Neck Neck: Yes normal visual inspection and Yes supple Resp Effort & Inspection: normal respiratory effort Auscultation: clear to auscultation bilaterally Cardio Jugular venous distension: no JVD Rate: regular rate Rhythm: regular rhythm Heart sounds: S1 normal heart sound present and S2 normal heart sound present Extrem General: Yes full ROM Psych Appearance: grossly normal Office Procedures Flu Questionnaire Does the patient have a severe egg allergy?: No Results AMB Hemoglobin A1c AMB Hemoglobin A1c 6.9 % Last Edit by OSCAR Duggan on 03/18/23 09:5 8 Immunizations flu vacc [id number] 6mos up(PF) 60 mcg(15 mcgx4)/0.5 mL IM syringe Performing Provider: Faith Ny MD [facility] Documented (not given) by: OSCAR Duggan on 03/18/23 09:56 Reason Not Given: Patient Refused Results Reviewed Results Reviewed: Laboratory Last Values Hgb A1c (Clinic) 6.9 % (4.0-6.0) H 03/18/23 09:46 Assessment and Plan Assessment & Plan (1) Diabetes mellitus: Code(s): E11.9 - Type 2 diabetes mellitus without complications Qualifiers: Diabetes mellitus type: type 2 Diabetes mellitus continuous churn buttermaker insulin use: without assisted use Diabetes mellitus complication status: without complication Qualified Code(s): E11.9 - Type 2 diabetes mellitus without complications Plan: Increase Trulicity. A1c goal is equal or less than 7%. (2) Essential hypertension: Code(s): I10 - Essential (primary) hypertension Plan: Continue lisinopril. Blood pressure goal is equal or less than 130/80. Continue amlodipine. (3) Dyslipidemia: Code(s): E78.5 - Hyperlipidemia, unspecified Plan: Continue statins. LDL goal should be less than 70. Orders: Orders AMB Hemoglobin A1c Today E11.9 - Type 2 diabetes mellitus without complications Lipid Panel 4 Months E78.5 - Hyperlipidemia, unspecified Vitamin D 25-OH Total 4 Months E55.9 - Vitamin D deficiency, unspecified Comprehensive [place]. Panel Fast 4 Months E11.9 - Type 2 diabetes mellitus without complications Influenza [id number] Immunization Today E11.9 - Type 2 diabetes mellitus without complications Microalbumin, Random (w Creat) 4 Months E11.9 - Type 2 diabetes mellitus without complications Medications: New dulaglutide (Trulicity) 1.5 mg (0.5 mL) subcut QWEEK 6.5 mL 1RF 90 days E11.9 - Type 2 diabetes mellitus without complications Discontinued dulaglutide (Trulicity) Discontinued Reason: Patient Completed Course 0.75 mg (0.5 mL) subcut QWEEK 90 days 6.5 mL 1RF E11.9 - Type 2 diabetes mellitus without complications Coding Level of Care Code Est Pt Level 3 (18304) Diagnoses Type 2 diabetes mellitus without complication, without long-term current use of insulin E11.9 Diabetes mellitus type: type 2 Diabetes mellitus assisted insulin use: without continuous churn buttermaker use Diabetes mellitus complication status: without complication Essential hypertension I10 Dyslipidemia E78.5 Time Spent (min) 19
[2023-03-18 09:49] VITALS: BP 112/68; BMI 25.3
== END 2023-03-18 10:18 | disposition home or self-care (01) ==
PROVIDERS: PCP Internal Medicine; Visit Provider Internal Medicine
DX: E11.9 Type 2 diabetes mellitus without complications (principal); I10 Essential (primary) hypertension; E78.5 Hyperlipidemia, unspecified
CPT/HCPCS: 83036; 99213

== ENCOUNTER 2023-04-20 10:25 | Outpatient (AMB) | payer OTHER, SELFPAY ==
[2023-04-20 10:45] VITALS: BMI 25.4
--- NOTE | 2023-04-20 10:45 | MHC.AMNUTRGE ---
Intake VS Expanded 04/20/23 10:45 Height 5 ft 1 in Weight 134 lb 7.712 oz BMI 25.4 Intake Visit Reasons: DM/Individual Nutrition/LVM Allergies No Known Allergies Allergy (Verified 03/18/23 09:58) HPI Nutrition Presentation Details Pt presents for MNT for T2DM Pt reports typically eating the same foods B: 3 slices of bread with peanut butter , 1 slice of ham 3 slices , 2 slices of cheese, diet zero 2 pm: white scrambled eggs and 1 egg, 1 slice ham, butter, olive oil , vegetables (sometimes) 3 pm chocolate sugar free with whole milk or fruit cup , rice cake, and 1 cookies brought glucometer freestyle lite glucometer 7 day average at 136 mg/dl reports walking 1 hr , 3 times a week Most Recent Diabetes Results: Microalb/Creat Ratio 6.5 ug/mg cr 11/06/22 Cholesterol 135 mg/dL 11/06/22 HDL Cholesterol 48 mg/dL 11/06/22 Triglycerides 57 mg/dL 11/06/22 Creatinine 0.80 mg/dL (0.5-1.4) 11/06/22 Blood Urea Nitrogen 26 mg/dL (9-16) H 11/06/22 Sodium 142 mmol/L (135-145) 11/06/22 Potassium 4.2 mmol/L (3.3-5.1) 11/06/22 Chloride 110 mmol/L (96-108) H 11/06/22 Carbon Dioxide 25 mmol/L (22-29) 11/06/22 Calcium 9.6 mg/dL (8.4-10.2) 11/06/22 AST 19 U/L (5-31) 11/06/22 ALT 16 U/L (0-31) 11/06/22 Total Protein 8.0 g/dL (6.5-8.0) 11/06/22 Albumin 3.9 g/dL (3.5-5.0) 11/06/22 [facility] Medical History Vitamin D deficiency Candidal intertrigo Physical exam Developmental delay, mild Thyroid nodule Non-toxic multinodular goiter Palpitations Goiter Overweight (BMI 25.0-29.9) Dyslipidemia Diabetes mellitus Essential hypertension Surgical History No pertinent past surgical history Family History Father CAD (coronary artery disease) HTN (hypertension) Mother CAD (coronary artery disease) H/O heart valve replacement with bioprosthetic valve HTN (hypertension) Diabetes Gastrointestinal malignancy Sister HTN (hypertension) Diabetes Atrial fibrillation Familial hyperlipidemia Social History Household Members: Family Household Members Other:: Sister Joanie Housing: Apartment Alcohol intake: never Patient Tobacco Use Status: Never used Tobacco e-Cigarette/Vaping Use: Never Used Second Hand Smoke Exposure: No service: No Current occupational status: disabled Cognitive needs: No Hearing needs: No Vision needs: No Assessment & Plan Assessment & Plan (1) Diabetes mellitus: Code(s): E11.9 - Type 2 diabetes mellitus without complications Qualifiers: Diabetes mellitus complication status: without complication Diabetes mellitus long term care administrator insulin use: without long term care administrator use Diabetes mellitus type: type 2 Qualified Code(s): E11.9 - Type 2 diabetes mellitus without complications Plan: Reinforce including a variety of foods following healthy plate method ? EST Kcal NEEDS as per [place] [address] Jeor x mild activity: 1353 + 500= 1853 ? ? ? USED? WT :? 55 kg est protein needs as per 0.8-1.0 g/kg bw: 44-55 g/d est fluid needs as per 25 ml/kg bw:? 1386 ml/d? Plan Patient Instructions: More agua con las comidas y meriendas: 6-8 oz con cada comida y merienda Coding Level of Care Code Nutr Indiv Subseq ([id number]) Diagnoses Type 2 diabetes mellitus without complication, without long-term current use of insulin E11.9 Diabetes mellitus complication status: without complication Diabetes mellitus long term care administrator insulin use: without long-term use Diabetes mellitus type: type 2 Time Spent (min) 20
== END 2023-04-20 11:15 | disposition home or self-care (01) ==
PROVIDERS: PCP Internal Medicine; Visit Provider Dietitian, Registered
DX: E11.9 Type 2 diabetes mellitus without complications (principal)

== ENCOUNTER → 2023-04-20 10:25 | Outpatient (BNVA) | payer OTHER, SELFPAY | PROVIDERS: PCP Internal Medicine; Visit Provider Dietitian, Registered | DX: E11.9 Type 2 diabetes mellitus without complications (principal) | CPT/HCPCS: 97803 ==

== ENCOUNTER 2023-06-23 10:22 | Outpatient (REF) | payer OTHER, SELFPAY ==
[2023-06-23 13:08] LABS: Creatinine Urine 99.55 mg/dL
[2023-06-23 13:23] LABS: Alanine Aminotransferase 22 U/L (0-31); Albumin Level 3.8 g/dL (3.5-5.0); Alkaline Phosphatase 80 U/L (39-117); Anion Gap 14 (12-20); Aspartate Amino Transferase 20 U/L (5-31); Bilirubin Total 0.3 mg/dL (0.0-1.0); Blood Urea Nitrogen 29 mg/dL (9-16); Calcium 9.2 mg/dL (8.4-10.2); Carbon Dioxide 22 mmol/L (22-29); Chloride 110 mmol/L (96-108); Cholesterol 139 mg/dL (<200); Estimated Glomerular Filt Rate > 60; Glucose Fasting 143 mg/dL (60-99); HDL Cholesterol 45 mg/dL (>40); LDL Cholesterol Calculated 82 mg/dL (<100); Potassium 4.1 mmol/L (3.3-5.1); Sodium 142 mmol/L (135-145); Triglycerides 62 mg/dL (<150); Vitamin D 25-OH Total 43.7 ng/mL (>30)
== END 2023-06-23 10:23 | disposition home or self-care (01) ==
LOC: HO.LAB 10:22
PROVIDERS: PCP Internal Medicine; Visit Provider Internal Medicine
DX: E78.5 Hyperlipidemia, unspecified (principal); E11.9 Type 2 diabetes mellitus without complications; E55.9 Vitamin D deficiency, unspecified
CPT/HCPCS: 36415; 80053; 80061; 82043; 82306; 82570

== ENCOUNTER 2023-07-02 15:27 | Outpatient (AMB) | payer OTHER, SELFPAY ==
--- NOTE | 2023-07-02 15:31 | MHC.PC.OV ---
Vital Signs 07/02/23 15:34 Height 5 ft 1 in Weight 134 lb BMI 25.3 BP 118/62 Blood Pressure Location Lt brachial Position Sitting Intake Visit Reasons: pe Intake Note: Patient here for a physical exam Director Of Engineering Required: No Accompanied by: Self / Same As Patient Allergies No Known Allergies Allergy (Verified 07/02/23 15:56) Medication List - Last Reconciled 07/02/23 by Faith Ny MD amlodipine 2.5 mg PO DAILY 90 days atorvastatin 40 mg PO DAILY blood pressure monitor As directed blood sugar diagnostic (FreeStyle Lite Strips) Use 1 test strip once a day blood sugar diagnostic As directed blood-glucose meter (FreeStyle Lite Meter kit) As directed dulaglutide (Trulicity) 1.5 mg (0.5 mL) subcut QWEEK 90 days flash glucose sensor (FreeStyle Raymond 14 Day Sensor kit) every 14 days lancets (FreeStyle Lancets) Use 1 lancet once a day lancets As directed lisinopril 40 mg PO DAILY 90 days metoprolol succinate ER 25 mg PO DAILY nystatin 1 appl topical BID 2 weeks Tobacco use date assessed: 07/02/23 Dental Screening Dental Screen Date: 07/02/23 Did you have a dental visit in the last 12 months?: No Did you have a dental problem in the last 6 months where you did not have access to dental care?: No Was dental information given to patient?: Patient has dentist HPI HPI Comments History of Present Illness Details This is a 62-year-old female with diabetes mellitus that comes for her physical exam. A1c within goal. Last diabetic eye exam was this year. Last colonoscopy was 2020 showing tubular adenoma that needs to be repeated in 3-5 years. Mammogram done February 2023 was normal. Complains of nasal congestion and cough that started about 3 days ago. [facility] Medical History Vitamin D deficiency Candidal intertrigo Physical exam Developmental delay, mild Thyroid nodule Non-toxic multinodular goiter Palpitations Goiter Overweight (BMI 25.0-29.9) Dyslipidemia Diabetes mellitus Essential hypertension Surgical History No pertinent past surgical history Family History Father CAD (coronary artery disease) HTN (hypertension) Mother CAD (coronary artery disease) H/O heart valve replacement with bioprosthetic valve HTN (hypertension) Diabetes Gastrointestinal malignancy Sister HTN (hypertension) Diabetes Atrial fibrillation Familial hyperlipidemia Social History Household Members: Family Household Members Other:: Sister Joanie Housing: Apartment Alcohol intake: never Patient Tobacco Use Status: Never used Tobacco e-Cigarette/Vaping Use: Never Used Second Hand Smoke Exposure: No service: No Current occupational status: disabled Cognitive needs: No Hearing needs: No Vision needs: No Questionnaire PHQ-9 Over the last 2 weeks, how often have you been bothered by any of the following problems? 1. Little interest or pleasure in doing things: not at all 2. Feeling down, depressed, or hopeless: not at all 3. Trouble falling or staying asleep, or sleeping too much: not at all 4. Feeling tired or having little energy: not at all 5. Poor appetite or overeating: not at all 6. Feeling bad about yourself - or that you are a failure or have let yourself or your family down: not at all 7. Trouble concentrating on things, such as reading the newspaper or watching television: not at all 8. Moving or speaking so slowly that other people could have noticed. Or the opposite - being so fidgety or restless that you have been moving around a lot more than usual: not at all 9. Thoughts that you would be better off or of hurting yourself in some way: not at all Total score: 0 Depression Screening Interpretation: Negative Depression Screening Done: Yes 15483 - PHQ-9 Billing: Yes Source: Developed by Drs. Ke Gamble, Lina Acosta, Harshad Perez and colleagues, with an educational dallin from [employer]. Thrive Questionnaire Date Thrive assessed: 07/02/23 I am a: Patient What is your living situation today?: I have a steady place to live Within the past 12 months, did the food you bought not last and you didn't have the money to get more?: Never true Within the past 12 months, did you worry whether your food would run out before you got money to buy more?: Never true Do you have trouble paying for medicines?: No Do you have trouble getting transportation to medical appointments?: No Do you have trouble paying your heating and electricity bill?: No Do you have trouble taking care of your child, family member or friend?: No Do you have trouble with day-to-day activities such as bathing, preparing meals, shopping, managing finances, etc.?: No Are you currently unemployed and looking for a job?: No Are you interested in more education?: No Please select the resources that you would like help with: None Currently or been in a relationship where the following occur: no concerns reported THRIVE Score: 0 AUDIT C Alcohol Use Questionnaire (AUDIT-C) 1. How often do you have a drink containing alcohol?: Never Total Score: 0 ANGELA-7 AMB Questionnaire ANGELA-7 Date ANGELA - 7 assessed: 07/02/23 Feeling nervous, anxious, or on edge: 0 = Not at all Not being able to stop or control worryin = Not at all Worrying too much about different things: 0 = Not at all Trouble relaxin = Not at all Being so restless that it is hard to sit still: 0 = Not at all Becoming easily annoyed or irritable: 0 = Not at all Feeling afraid as if something awful might happen: 0 = Not at all Total ANGELA-7 score (0-4 normal; 5-9 mild; 10-14 moderate; 15-21 severe): 0 Source: Developed by Drs. Ke Gamble, Lina Acosta, Harshad Perez and colleagues, with an educational dallin from [employer]. ANGELA-7 Assessment Billing ANGELA-7 Assessment Tool: ANGELA-7 Assessment 65694 Review of Systems Const All systems reviewed & are unremarkable except as noted in HPI and below Eyes Reports no additional complaints, Denies change in vision and Denies other visual disturbances Card Denies chest pain at rest, Denies chest pain with activity, Denies edema, Denies irregular heart rhythm, Denies claudication, Denies dyspnea, Denies dyspnea on exertion, Denies orthopnea, Denies paroxysmal nocturnal dyspnea and Denies slow heart rate Resp Denies cough, Denies dyspnea and Denies dyspnea on exertion GI Denies abdominal pain, Denies change in bowel habits, Denies excessive flatus, Denies nausea and Denies vomiting Denies urinary incontinence, Denies urinary hesitancy and Denies urinary urgency Physical exam (Primary Care) Vital Signs: Last Vital Signs BP 118/62 07/02/23 15:34 BMI result Body Mass Index 25.3 Tobacco/Smoking Status: Tobacco use Status Tobacco use date assessed 07/02/23 07/02/23 15:38 Patient Tobacco Use Status Never used Tobacco 07/02/23 15:33 e-Cigarette/Vaping Use Never Used 07/02/23 15:33 PHQ-9: PHQ-9 Score PHQ-9: Total score 0 07/02/23 16:00 Depression Screening Interpretation: Negative Thrive Assessment: Date of Thrive Assessment Date Thrive assessed 07/02/23 07/02/23 15:38 Currently or been in a relationship where the following occur: no concerns reported Const General: ill appearing Orientation/consciousness: patient oriented x3 HENMT Head: Yes normal to inspection, Yes normocephalic and Yes atraumatic Ears: external ears normal Eyes General: appearance normal, both eyes and all related structures Eyelids: Yes eyelids normal Conjunctivae: conjunctivae normal Neck Neck: Yes normal visual inspection and Yes supple Resp Effort & Inspection: normal respiratory effort Auscultation: clear to auscultation bilaterally Cardio Jugular venous distension: no JVD Rate: regular rate Rhythm: regular rhythm Heart sounds: S1 normal heart sound present and S2 normal heart sound present GI Inspection: Yes normal to inspection Palpation (GI): Soft to palpation and nontender Auscultation: normal bowel sounds Skin General skin exam: no rashes or lesions noted Neuro General: patient oriented x3 and no focal motor deficits Extrem General: Yes full ROM Psych Appearance: grossly normal Results AMB Hemoglobin A1c AMB Hemoglobin A1c 6.7 % Last Edit by OSCAR Duggan on 07/02/23 15:40 Results Reviewed Results Reviewed: Laboratory Last Values Hgb A1c (Clinic) 6.7 % (4.0-6.0) H 07/02/23 15:30 Assessment and Plan Assessment & Plan (1) Physical exam: Code(s): Z00.00 - Encounter for general adult medical examination without abnormal findings Plan: Repeat in a year. (2) Diabetes mellitus: Code(s): E11.9 - Type 2 diabetes mellitus without complications Qualifiers: Diabetes mellitus type: type 2 Diabetes mellitus long term acute care registered nurse insulin use: without long term acute care registered nurse use Diabetes mellitus complication status: without complication Qualified Code(s): E11.9 - Type 2 diabetes mellitus without complications Plan: Continue Trulicity. A1c goal is equal or less than 7%. Orders: Orders SARS-CoV2/FLU/RSV Today R09.89 - Other specified symptoms and signs involving the circulatory and respiratory systems Microalbumin, Random (w Creat) 4 Months E11.9 - Type 2 diabetes mellitus without complications AMB Hemoglobin A1c Today E11.9 - Type 2 diabetes mellitus without complications Lipid Panel 4 Months E78.5 - Hyperlipidemia, unspecified Comprehensive [place]. Panel Fast 4 Months E11.9 - Type 2 diabetes mellitus without complications Referrals Open Access Screening Colonoscopy Referral Z12.11 - Encounter for screening for malignant neoplasm of colon Medications: New atorvastatin 80 mg PO BEDTIME 90 tabs 1RF 90 days Discontinued atorvastatin Discontinued Reason: Patient Completed Course 40 mg PO DAILY 90 tabs 2RF Coding Level of Care Code Est Pt Prev Care 40-64y(46921) Diagnoses Physical exam Z00.00 Type 2 diabetes mellitus without complication, without long-term current use of insulin E11.9 Diabetes mellitus type: type 2 Diabetes mellitus long-term insulin use: without long-term use Diabetes mellitus complication status: without complication Additional Codes ANGELA-7 Assessment Billing - ANGELA-7 Assessment Tool: ANGELA-7 Assessment 23588 ([id number]) Time Spent (min) 34
[2023-07-02 15:34] VITALS: BP 118/62; BMI 25.3
== END 2023-07-02 16:13 | disposition home or self-care (01) ==
PROVIDERS: PCP Internal Medicine; Visit Provider Internal Medicine
DX: Z00.00 Encounter for general adult medical examination without abnormal findings (principal); E11.9 Type 2 diabetes mellitus without complications
CPT/HCPCS: 83036; 99396

== ENCOUNTER 2023-09-15 12:08 | Outpatient (AMB) | payer OTHER, SELFPAY ==
--- NOTE | 2023-09-15 12:32 | A.OFFPC_ITS ---
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 Required: No Accompanied by: Brother Allergies No Known Allergies Allergy (Verified 09/15/23 12:42) Medication List - Last Reconciled 09/15/23 by Faith Ny MD amlodipine 2.5 mg PO DAILY 90 days atorvastatin 80 mg PO BEDTIME 90 days blood pressure monitor As directed blood sugar diagnostic (FreeStyle Lite Strips) Use 1 test strip three times per day blood sugar diagnostic As directed blood-glucose meter (FreeStyle Lite Meter kit) As directed dulaglutide (Trulicity) 3 mg (0.5 mL) subcut QWEEK 90 days flash glucose sensor (FreeStyle Raymond 14 Day Sensor kit) every 14 days glimepiride 2 mg PO DAILY 90 days lancets (FreeStyle Lancets) Use 1 lancet three times per day lancets As directed lisinopril 40 mg PO DAILY 90 days metoprolol succinate ER 25 mg PO DAILY nystatin 1 appl topical BID 2 weeks Tobacco use date assessed: 07/02/23 Dental Screening Dental Screen Date: 07/02/23 HPI HPI Comments History of Present Illness Details This is a 62-year-old female with diabetes mellitus type 2, hypertension, dyslipidemia and postoperative hypothyroidism that comes today accompanied by brother for follow-up on conditions. Last A1c was within goal but her sugars at home has been from 200 to 300 and this is why I will increase Trulicity. Blood pressure stable. LDL very close to goal and lipid panel will be repeated for next office visit. She had thyroidectomy due to benign multinodular thyroid in 09/01/2023 and has recovered well. Has appointment with surgeon in 2 days. No chest pain or shortness on breath. [facility] Medical History (Updated 09/15/23 @ 12:59 by Faith Ny MD) Vitamin D deficiency Candidal intertrigo Physical exam Developmental delay, mild Thyroid nodule Non-toxic multinodular goiter Palpitations Goiter Overweight (BMI 25.0-29.9) Dyslipidemia Diabetes mellitus Essential hypertension Surgical History (Updated 09/15/23 @ 12:59 by Faith Ny MD) H/O thyroidectomy Family History Father CAD (coronary artery disease) HTN (hypertension) Mother CAD (coronary artery disease) H/O heart valve replacement with bioprosthetic valve HTN (hypertension) Diabetes Gastrointestinal malignancy Sister HTN (hypertension) Diabetes Atrial fibrillation Familial hyperlipidemia Social History Household Members: Family Household Members Other:: Sister Joanie Housing: Apartment Alcohol intake: never Patient Tobacco Use Status: Never used Tobacco e-Cigarette/Vaping Use: Never Used Second Hand Smoke Exposure: No service: No Current occupational status: disabled Cognitive needs: No Hearing needs: No Vision needs: No Questionnaire Thrive Questionnaire Date Thrive assessed: 07/02/23 ANGELA-7 AMB Questionnaire ANGELA-7 Date ANGELA - 7 assessed: 07/02/23 Source: Developed by Drs. Ke Gamble, Lina Acosta, Harshad Perez and colleagues, with an educational dallin from [employer]. Review of Systems Const All systems reviewed & are unremarkable except as noted in HPI and below Eyes Reports no additional complaints, Denies change in vision and Denies other visual disturbances Card Denies chest pain at rest, Denies chest pain with activity, Denies edema, Denies irregular heart rhythm, Denies claudication, Denies dyspnea, Denies dyspnea on exertion, Denies orthopnea, Denies paroxysmal nocturnal dyspnea and Denies slow heart rate Resp Denies cough, Denies dyspnea and Denies dyspnea on exertion Physical exam (Primary Care) Vital Signs: Last Vital Signs BP 130/62 09/15/23 12:34 BMI result Body Mass Index 24.7 Tobacco/Smoking Status: Tobacco use Status Tobacco use date assessed 07/02/23 09/15/23 12:38 Patient Tobacco Use Status Never used Tobacco 09/15/23 12:38 e-Cigarette/Vaping Use Never Used 09/15/23 12:38 Thrive Assessment: Date of Thrive Assessment Date Thrive assessed 07/02/23 09/15/23 12:38 Resp Effort & Inspection: normal respiratory effort Auscultation: clear to auscultation bilaterally Cardio Jugular venous distension: no JVD Rate: regular rate Rhythm: regular rhythm Heart sounds: S1 normal heart sound present and S2 normal heart sound present Extrem General: Yes full ROM Assessment and Plan Assessment & Plan (1) Postoperative hypothyroidism: Code(s): E89.0 - Postprocedural hypothyroidism Plan: Continue levothyroxine. Follow-up with surgeon in 2 days. (2) Diabetes mellitus: Code(s): E11.9 - Type 2 diabetes mellitus without complications Qualifiers: Diabetes mellitus type: type 2 Diabetes mellitus termite helper insulin use: without longterm use Diabetes mellitus complication status: without complication Qualified Code(s): E11.9 - Type 2 diabetes mellitus without complications Plan: Continue glimepiride. Increase Trulicity. A1c goal is equal or less than 7%. (3) Dyslipidemia: Code(s): E78.5 - Hyperlipidemia, unspecified Plan: Continue statins. Repeat lipid panel in October. LDL goal is less than 70. (4) Essential hypertension: Code(s): I10 - Essential (primary) hypertension Plan: Continue lisinopril and amlodipine. Blood pressure goal is equal or less than 130/80. Orders: Orders Microalbumin, Random (w Creat) Today E11.9 - Type 2 diabetes mellitus without complications Thyroid Stimulating Hormone Today E04.1 - Nontoxic single thyroid nodule Lipid Panel Today E78.5 - Hyperlipidemia, unspecified Vitamin D 25-OH Total Today E55.9 - Vitamin D deficiency, unspecified Comprehensive [place]. Panel Fast Today E11.9 - Type 2 diabetes mellitus without complications Medications: New dulaglutide (Trulicity) 4.5 mg (0.5 mL) subcut QWEEK 90 days 6.5 mL 1RF E11.9 - Type 2 diabetes mellitus without complications Discontinued dulaglutide (Trulicity) Discontinued Reason: Patient Completed Course 3 mg (0.5 mL) subcut QWEEK 90 days 6.5 mL 2RF Coding Level of Care Code Est Pt Level 4 (36901) Complex EM visit Add On G2211 Diagnoses Postoperative hypothyroidism E89.0 Type 2 diabetes mellitus without complication, without long-term current use of insulin E11.9 Diabetes mellitus type: type 2 Diabetes mellitus longterm insulin use: without longterm use Diabetes mellitus complication status: without complication Dyslipidemia E78.5 Essential hypertension I10 Time Spent (min) 23
[2023-09-15 12:34] VITALS: BP 130/62; BMI 24.7
== END 2023-09-15 12:57 | disposition home or self-care (01) ==
PROVIDERS: PCP Internal Medicine; Visit Provider Internal Medicine
DX: E89.0 Postprocedural hypothyroidism (principal); E11.9 Type 2 diabetes mellitus without complications; E78.5 Hyperlipidemia, unspecified; I10 Essential (primary) hypertension
CPT/HCPCS: 99214; G2211

== ENCOUNTER 2023-09-21 12:30 | Outpatient (AMB) | payer OTHER, SELFPAY ==
[2023-09-21 13:08] VITALS: BP 110/70; PULSE 76; BMI 24.5
--- NOTE | 2023-09-21 13:08 | MHC.OFFVIS ---
Vital Signs 09/21/23 13:08 Height 5 ft 1 in Weight 129 lb 10.109 oz BMI 24.5 BP 110/70 Blood Pressure Location Lt brachial Position Sitting Pulse 76 Pulse Source Monitor Intake Visit Reasons: 1 year follow up Long Term Acute Care Registered Nurse Required: Yes Long Term Acute Care Registered Nurse Name: fartun/cyracom/kiswahili Accompanied by: Self / Same As Patient Allergies No Known Allergies Allergy (Verified 09/15/23 12:42) Medication List - Last Reconciled 09/21/23 by Bruno Ellsworth MD amlodipine 2.5 mg PO DAILY 90 days atorvastatin 80 mg PO BEDTIME 90 days blood pressure monitor As directed blood sugar diagnostic (FreeStyle Lite Strips) Use 1 test strip three times per day blood sugar diagnostic As directed blood-glucose meter (FreeStyle Lite Meter kit) As directed dulaglutide (Trulicity) 4.5 mg (0.5 mL) subcut QWEEK 90 days flash glucose sensor (FreeStyle Raymond 14 Day Sensor kit) every 14 days glimepiride 2 mg PO DAILY 90 days lancets (FreeStyle Lancets) Use 1 lancet three times per day lancets As directed levothyroxine 88 mcg PO DAILY lisinopril 40 mg PO DAILY 90 days metoprolol succinate ER 25 mg PO DAILY nystatin 1 appl topical BID 2 weeks tirzepatide (Mounjaro) 2.5 mg (0.5 mL) subcut QWEEK 4 weeks HPI Comments Details: Background: Pleasant 60-year-old lady here for palpitations. She has been experiencing off and on palpitations when she is going up and down stairs. She feels her heart is racing. Her sister works in the endocrine office and accompanied her. Patient has some developmental delays and could not give a good history. The sister added that on 2 occasions in the last 6 months she found her feeling very tired and sweaty. Her sugar level was okay. She is denying any chest discomfort shortness of breath. She is just experiencing palpitations mostly when she is exerting herself. She has diabetes and is following with Endocrine closely. No other active issues right now. He was referred by echocardiography and cardiac event monitor. Both did not show any significant issues. She is back for follow-up. She is denying any significant symptoms. She is tachycardic on examination. Occasionally she still feels palpitations which she describes racing of her heart. She was referred for cardiac event monitor which did not show any arrhythmia. She also had echocardiography which did not show any LV dysfunction or valve disease. On follow-up she has done well and has not complained of any symptoms. Blood pressure control is good. No chest pain or shortness of breath. Clinically doing well. 09/21/2023: She returns for follow-up. She underwent thyroid surgery early 09/17/2023. The wound appears to be well healed. She is denying any other complaints currently. Blood pressure is well controlled. Last labs were in 06/17/2023 when total cholesterol was 139 and LDL was 82. She is on atorvastatin 80 mg daily. [facility] Medical History (Updated 09/15/23 @ 12:59 by Faith Ny MD) Vitamin D deficiency Candidal intertrigo Physical exam Developmental delay, mild Thyroid nodule Non-toxic multinodular goiter Palpitations Goiter Overweight (BMI 25.0-29.9) Dyslipidemia Diabetes mellitus Essential hypertension Surgical History H/O thyroidectomy Family History Father CAD (coronary artery disease) HTN (hypertension) Mother CAD (coronary artery disease) H/O heart valve replacement with bioprosthetic valve HTN (hypertension) Diabetes Gastrointestinal malignancy Sister HTN (hypertension) Diabetes Atrial fibrillation Familial hyperlipidemia Social History Household Members: Family Household Members Other:: Sister Joanie Housing: Apartment Alcohol intake: never Patient Tobacco Use Status: Never used Tobacco e-Cigarette/Vaping Use: Never Used Second Hand Smoke Exposure: No service: No Current occupational status: disabled Cognitive needs: No Hearing needs: No Vision needs: No Review of Systems Const Denies chills, Denies fatigue, Denies fever(s), Denies frequent falls, Denies weakness, Denies weight gain and Denies weight loss ENT Denies dizziness Card Denies chest pain, Denies leg edema, Denies lightheadedness, Denies palpitations, Denies dyspnea and Denies dyspnea on exertion Resp Denies cough, Denies dyspnea and Denies dyspnea on exertion GI Denies hematochezia Musc Denies abnormal gait, Denies muscle weakness, Denies numbness, Denies radiating pain into limb and Denies tingling Neuro Denies abnormal gait, Denies dizziness, Denies frequent falls, Denies numbness, Denies tingling and Denies weakness Endo Denies fatigue and Denies palpitations Physical Exam Vital Signs: Last Vital Signs Pulse 76 09/21/23 13:08 BP 110/70 09/21/23 13:08 BMI result Body Mass Index 24.5 GENERAL APPEARANCE: in no acute distress, well developed, well nourished. NECK/THYROID: no carotid bruit, no jugular venous distention. SKIN: no suspicious lesions, warm and dry. HEART: no murmurs, regular rate and rhythm, S1, S2 normal. LUNGS: clear to auscultation bilaterally. ABDOMEN: normal, bowel sounds present, soft, nontender, nondistended. EXTREMITIES: no clubbing, cyanosis, or edema. PERIPHERAL PULSES: equal. NEUROLOGIC: nonfocal, alert and oriented. PSYCH: mood/affect full range. Office Procedures EKG Details: Sinus rhythm 76 beats per minute, normal axis, nonspecific ST changes, QTC 414 milliseconds. [id number], Complete Assessment & Plan Assessment & Plan (1) Essential hypertension: Code(s): I10 - Essential (primary) hypertension Category: Medical Plan Pleasant 62-year-old female here for follow-up. Blood pressure control is optimal. Denying any significant palpitations. No chest pain or shortness of breath. Clinically stable at this stage and doing well on the current medication regimen. She can see us back in 1 year. Thank you for allowing me to participate in the care of your patient. Please feel free to contact me if you have any questions. Coding Level of Care Code Est Pt Level 3 (83577) Diagnoses Essential hypertension I10 CPT Codes EKG - CPT: 76939-[id number], Complete ([id number])
== END 2023-09-21 13:37 | disposition home or self-care (01) ==
PROVIDERS: PCP Internal Medicine; Visit Provider Internal Medicine Cardiovascular Disease
DX: I10 Essential (primary) hypertension (principal)
CPT/HCPCS: 93010; 99213

== ENCOUNTER → 2023-09-21 12:30 | Outpatient (BNVA) | payer OTHER, SELFPAY | PROVIDERS: PCP Internal Medicine; Visit Provider Internal Medicine Cardiovascular Disease | DX: I10 Essential (primary) hypertension (principal); Z79.899 Other long term (current) drug therapy | CPT/HCPCS: 93005; 99212 ==

== ENCOUNTER 2023-09-28 10:11 | Outpatient (AMB) | payer OTHER, SELFPAY ==
--- NOTE | 2023-09-28 10:13 | MHC.OFFVIS ---
Vital Signs 09/28/23 10:15 Height 5 ft 1 in Weight 129 lb 10.109 oz BMI 24.5 BP 128/78 Blood Pressure Location Lt brachial Position Sitting Pulse 98 Pulse Source Pulse Oximeter Intake Visit Reasons: 4 week surgery follow up-confirmed Intake Note: Patient present today for 4 week surgery follow up visit. City Auditor Required: Yes City Auditor Language: On Site Services Specialist Name: Tiffanie Information Interpreted: non-clinical & clinical Accompanied by: Self / Same As Patient Allergies No Known Allergies Allergy (Verified 09/28/23 10:21) Medication List - Last Reconciled 09/28/23 by Ke Perez MD amlodipine 2.5 mg PO DAILY 90 days atorvastatin 80 mg PO BEDTIME 90 days blood pressure monitor As directed blood sugar diagnostic (FreeStyle Lite Strips) Use 1 test strip three times per day blood sugar diagnostic As directed blood-glucose meter (FreeStyle Lite Meter kit) As directed dulaglutide (Trulicity) 4.5 mg (0.5 mL) subcut QWEEK 90 days flash glucose sensor (FreeStyle Raymond 14 Day Sensor kit) every 14 days glimepiride 2 mg PO DAILY 90 days lancets (FreeStyle Lancets) Use 1 lancet three times per day lancets As directed levothyroxine 88 mcg PO DAILY lisinopril 40 mg PO DAILY 90 days metoprolol succinate ER 25 mg PO DAILY nystatin 1 appl topical BID 2 weeks tirzepatide (Mounjaro) 2.5 mg (0.5 mL) subcut QWEEK 4 weeks HPI Comments Details: 62 YO Female with a PMHx of a NTMNG . Patient is status post completion thyroidectomy with benign pathology 4 weeks ago. She last saw Dr. Savage on 11/06/2022 She has a longstanding history of a NTMNG and was previously followed by Dr. Sotelo. She underwent FNA biposy 05/24/[address] Sotelo of the following nodules with the following results: Left mid pole 3.4 cm thyroid nodule: benign (bethesda category II) Left lower pole 1.5 cm thyroid nodule: benign (bethesda category II) Right pole 4.1 cm thyroid nodule: atypia of undetermined significance (bethesda category III), affirma benign She opted to undergo surveillance for her right pole nodule with yearly US. She had a repeat thyroid US 11/29/2020 which revealed significant change of her right mid pole nodule. She then underwent FNA biopsy of this Right mid pole 4.6 cm thyroid nodule by me 06/20/2021, with benign cytology (bethesda category II). Her Right lower pole 1.0 cm thyroid nodule was found to be spongifirm, so no FNA biopsy was indicated. Repeat thyroid US 07/24/2022 reveals significant change in multiple nodules. She presents today to review these results. She denies any compressive symptoms. She reports feeling well and has no complaints. Thyroid US: 11/29/2020 Right Thyroid Lobe: 6.3 x 3.1 x 3.1 cm, volume 32.0 mL. Previously 5.8 x 2.5 x 3.1 cm, volume 23.5 mL. Parenchyma: The gland echotexture is heterogeneous. Thyroid vascularity is increased. Left Thyroid Lobe: 6.1 x 1.7 x 2.3 cm, volume 12.2 mL. Previously 5.7 x 1.8 x 1.9 cm, volume 10.2 mL. Parenchyma: The gland echotexture is heterogeneous. Thyroid vascularity is increased. Isthmus: 0.4 cm in maximum AP dimension. Previously 0.5 cm. Estimated total number of nodules greater than or equal to 1 cm: 4. Oral And Maxillofacial Surgery Resident nodules are described as follows: 1.? Location: Right mid. ?? ? Size: 4.6 x 3.3 x 3.0 cm, volume 24.0 mL. ?? ? Previously: 4.1 x 2.3 x 3.0 cm, volume 14.8 mL. ?? ? Nodule characteristics: ?? ? Composition: Solid/almost completely solid (2). ?? ? Echogenicity: Isoechoic (1). ?? ? Shape: Taller than wide (3). ?? ? Margins: Smooth (0). ?? ? Echogenic Foci: None (0).? ACR TI-RADS total points: 6 ?? ? ACR TI-RADS category: 4 ?? ? This appears increased in size. Differences in measurement may be due to interobserver variation of nodule margins. Additionally, measuring the nodule with a curved as opposed to linear transducer may be helpful. 2.? Location: Right mid. ?? ? Size: 0.6 x 0.7 x 0.9 cm, volume 0.2 mL. ?? ? Previously: 0.8 x 0.4 x 0.9 cm, volume 0.2 mL. ?? ? Nodule characteristics: ?? ? Composition: Cystic(0). ?? ? ACR TI-RADS total points: 0 ?? ? ACR TI-RADS category: 1 ? Significant change in size (>/= 20% in 2 dimensions and minimal increase of 2 mm or 50% or greater increase in volume): ?? ? Change in features: ?? ? Change in ACR TI-RADS risk category: 3.? Location: Right inferior. ?? ? Size: 1.0 x 0.6 x 0.8 cm, volume 0.2 mL. ?? ? Previously: 0.7 x 0.5 x 0.8 cm, volume 0.14 mL. ?? ? Nodule characteristics: ?? ? Composition: Cystic(0). ?? ? ACR TI-RADS total points: 0 ?? ? ACR TI-RADS category: 1 ? Significant change in size (>/= 20% in 2 dimensions and minimal increase of 2 mm or 50% or greater increase in volume): ?? ? Change in features: ?? ? Change in ACR TI-RADS risk category: 4.? Location: Left mid. ?? ? Size: 2.8 x 1.3 x 1.9 cm, volume 3.6 mL. ?? ? Previously: 3.4 x 1.4 x 1.8 cm, volume 4.5 mL. ?? ? Nodule characteristics: ?? ? Composition: Mixed cystic and solid (1). ?? ? Echogenicity: Isoechoic (1). ?? ? Shape: Not taller than wide (0). ?? ? Margins: Smooth (0). ?? ? Echogenic Foci: None (0).? ACR TI-RADS total points: 2 ?? ? ACR TI-RADS category: 2 ?? ? This is decreased in size and appears more solid and less cystic than on prior exam January 2020. This may be related to changes related to fine-needle aspiration April 2020. 5.? Location: Left inferior. ?? ? Size: 0.8 x 0.3 x 0.7 cm, volume 0.08 mL. ?? ? Previously: 1.5 x 0.6 x 0.9 cm, volume 0.4 mL. ?? ? Nodule characteristics: ?? ? Composition: Solid/almost completely solid (2). ?? ? Echogenicity: Isoechoic (1). ?? ? Shape: Not taller than wide (0). ?? ? Margins: Smooth (0). ?? ? Echogenic Foci: None (0). ? ACR TI-RADS total points: 3 ?? ? ACR TI-RADS category: 3 ? Significant change in size (>/= 20% in 2 dimensions and minimal increase of 2 mm or 50% or greater increase in volume): ?? ? Change in features: ?? ? Change in ACR TI-RADS risk category: NODES: No lymphadenopathy is seen in the tissue surrounding the thyroid gland. Labs: Laboratory Tests 07/24/22 15:42 25-OH Vitamin D Total 33.6 TSH 0.43 Free T4 0.96 Started 88 ug of levothyroxine [facility] Medical History (Updated 09/15/23 @ 12:59 by Faith Ny MD) Vitamin D deficiency Candidal intertrigo Physical exam Developmental delay, mild Thyroid nodule Non-toxic multinodular goiter Palpitations Goiter Overweight (BMI 25.0-29.9) Dyslipidemia Diabetes mellitus Essential hypertension Surgical History H/O thyroidectomy Family History Father CAD (coronary artery disease) HTN (hypertension) Mother CAD (coronary artery disease) H/O heart valve replacement with bioprosthetic valve HTN (hypertension) Diabetes Gastrointestinal malignancy Sister HTN (hypertension) Diabetes Atrial fibrillation Familial hyperlipidemia Social History Household Members: Family Household Members Other:: Sister Joanie Housing: Apartment Alcohol intake: never Patient Tobacco Use Status: Never used Tobacco e-Cigarette/Vaping Use: Never Used Second Hand Smoke Exposure: No service: No Current occupational status: disabled Cognitive needs: No Hearing needs: No Vision needs: No Physical Exam Const Other: Healing scar status post thyroidectomy Assessment & Plan Assessment & Plan (1) Postoperative hypothyroidism: Code(s): E89.0 - Postprocedural hypothyroidism Category: Medical Plan: This 62-year-old female with a history of post-operative hypothyroidism status post total thyroidectomy 4 weeks ago. He is currently replaced on 88 mcg levothyroxine. She appears to be clinically euthyroid Plan is to check a TSH and free T4 and adjust levothyroxine accordingly. Orders: Orders Free T4 (Free Thyroxine) 09/27/23 E89.0 - Postprocedural hypothyroidism Thyroid Stimulating Hormone 09/27/23 E89.0 - Postprocedural hypothyroidism Coding Level of Care Code Est Pt Level 3 (08991) Diagnoses Postoperative hypothyroidism E89.0
[2023-09-28 10:15] VITALS: BP 128/78; PULSE 98; BMI 24.5
== END 2023-09-28 10:36 | disposition home or self-care (01) ==
PROVIDERS: PCP Internal Medicine; Visit Provider Internal Medicine Endocrinology, Diabetes & Metabolism
DX: E89.0 Postprocedural hypothyroidism (principal)
CPT/HCPCS: 99213

== ENCOUNTER 2023-09-28 10:11 | Outpatient (REF) | payer OTHER, SELFPAY ==
[2023-09-28 11:28] LABS: Creatinine Urine 174.25 mg/dL; Microalbum/Creatinine Ratio Ur 17.2 ug/mg cr (<30)
[2023-09-28 11:33] LABS: Alanine Aminotransferase 21 U/L (0-31); Albumin Level 4.1 g/dL (3.5-5.0); Alkaline Phosphatase 92 U/L (39-117); Anion Gap 12 (12-20); Aspartate Amino Transferase 18 U/L (5-31); Bilirubin Total 0.4 mg/dL (0.0-1.0); Blood Urea Nitrogen 27 mg/dL (9-16); Carbon Dioxide 25 mmol/L (22-29); Chloride 104 mmol/L (96-108); Cholesterol 136 mg/dL (<200); Estimated Glomerular Filt Rate 60; Glucose Fasting 309 mg/dL (60-99); HDL Cholesterol 43 mg/dL (>40); LDL Cholesterol Calculated 76 mg/dL (<100); Potassium 4.3 mmol/L (3.3-5.1); Sodium 137 mmol/L (135-145); Total Protein 8.1 g/dL (6.5-8.0); Triglycerides 86 mg/dL (<150)
[2023-09-28 12:01] LABS: Thyroid Stimulating Hormone 1.11 uIU/mL (0.32-4.0); Vitamin D 25-OH Total 36.5 ng/mL (>30)
== END 2023-09-28 10:12 | disposition home or self-care (01) ==
LOC: HO.LAB 10:11
PROVIDERS: PCP Internal Medicine; Visit Provider Internal Medicine Endocrinology, Diabetes & Metabolism
DX: E89.0 Postprocedural hypothyroidism (principal); E11.9 Type 2 diabetes mellitus without complications; E04.1 Nontoxic single thyroid nodule; E78.5 Hyperlipidemia, unspecified; E55.9 Vitamin D deficiency, unspecified
CPT/HCPCS: 36415; 80053; 80061; 82043; 82306; 82570; 84443; 99212

== ENCOUNTER 2023-10-08 13:19 | Outpatient (AMB) | payer OTHER, SELFPAY ==
--- NOTE | 2023-10-08 13:23 | A.OFFVIS_ITS ---
Vital Signs 10/08/23 13:27 Height 5 ft 1 in Weight 128 lb 8.472 oz BMI 24.3 BP 106/56 L Blood Pressure Location Rt brachial Position Sitting Pulse 88 Pulse Source Pulse Oximeter Intake Visit Reasons: DM Type 2 Intake Note: New patient to Dr. Teresa present today for DM. Last Diabetic Eye exam: Last 2022 Last Podiatry Visit: Does not see a Financial Wellness Coach Random Glucose: 361 mg/dl HgA1C: 12.3% Inside Sales Assistant Required: Yes Inside Sales Assistant Language: Cellular Biologist Services: Inside Sales Assistant Present Inside Sales Assistant Name: Jolanta [id number] Information Interpreted: non-clinical & clinical Accompanied by: Self / Same As Patient Allergies No Known Allergies Allergy (Verified 10/08/23 13:28) HPI Comments Details: 62 YO Female with a PMHx of a NTMNG, diabetes, cognitive impairment presenting for follow up of diabetes. Video elastic attacher zigzag used. Sister not in attendance but helps with patients medications etc POC A1C today 12.2%. Previous A1C 6.7% in 06/2023. She tells me for the past few months she has been out of trulicity. She had been taking 3mg weekly. She has continued only her glimepiride in the meantime. Other providers tried to send Mounjaro (denied), victoza (unclear?), Jardiance -none every started for reasons listed. Originally sent 4.5mg trulicity today however called pharmacy and all doses except 0.75 on nationwide back order. s/p near total thyroidectomy for NTMNG with Dr Sexton. Continues levothyroxine. Recently seen by Dr Chris [employer] CONSTITUTIONAL: Denies weight loss, fever and chills. HEENT: Denies changes in vision and hearing. RESPIRATORY: Denies SOB and cough. CV: Denies palpitations and CP GI: Denies abdominal pain, nausea, vomiting and diarrhea. : Denies dysuria and urinary frequency. MSK: Denies new myalgia and joint pain. SKIN: Denies rash and pruritus. NEUROLOGICAL: Denies headache PSYCHIATRIC: Denies recent changes in mood. PHYSICAL EXAM: GENERAL: Alert and oriented x 3. NAD EYES: EOMI. Anicteric. HENT: Moist mucous membranes. No scleral icterus. No cervical lymphadenopathy. LUNGS: Clear to auscultation bilaterally. CARDIOVASCULAR: Regular rate and rhythm. No murmur. No JVD. ABDOMEN: Soft, non-tender +bs EXTREMITIES: No edema. Non-tender. SKIN: Well healing thyroidectomy scar NEUROLOGIC: No focal neurological deficits. CN II-XII grossly intact PSYCHIATRIC: Cooperative. Appropriate mood and affect [facility] Medical History Vitamin D deficiency Candidal intertrigo Physical exam Developmental delay, mild Thyroid nodule Non-toxic multinodular goiter Palpitations Goiter Overweight (BMI 25.0-29.9) Dyslipidemia Diabetes mellitus Essential hypertension Surgical History H/O thyroidectomy Family History Father CAD (coronary artery disease) HTN (hypertension) Mother CAD (coronary artery disease) H/O heart valve replacement with bioprosthetic valve HTN (hypertension) Diabetes Gastrointestinal malignancy Sister HTN (hypertension) Diabetes Atrial fibrillation Familial hyperlipidemia Social History Household Members: Family Household Members Other:: Sister Joanie Housing: Apartment Alcohol intake: never Patient Tobacco Use Status: Never used Tobacco e-Cigarette/Vaping Use: Never Used Second Hand Smoke Exposure: No service: No Current occupational status: disabled Cognitive needs: No Hearing needs: No Vision needs: No Physical Exam Vital Signs: Last Vital Signs Pulse 88 10/08/23 13:27 BP 106/56 L 10/08/23 13:27 BMI result Body Mass Index 24.3 Results AMB Hemoglobin A1c AMB Hemoglobin A1c 12.3 % Last Edit by OSCAR Zacarias on 10/08/23 13:47 Results Reviewed Results Reviewed: Laboratory Last Values Glucose (Clinic) 361 mg/dL (60-115) H* 10/08/23 13:37 Hgb A1c (Clinic) 12.3 % (4.0-6.0) H 10/08/23 13:43 Assessment & Plan Assessment & Plan (1) Diabetes mellitus: Code(s): E11.9 - Type 2 diabetes mellitus without complications Category: Medical Qualifiers: Diabetes mellitus complication status: without complication Diabetes mellitus [facility] insulin use: without [facility] use Diabetes mellitus type: type 2 Qualified Code(s): E11.9 - Type 2 diabetes mellitus without complications Plan: Patient has hyperglycemia in setting of missing meds x months Called pharmacy. All doses of ozempic can be ordered but will take 24-48h-this will be relayed to the patient and sister. (2) Postoperative hypothyroidism: Code(s): E89.0 - Postprocedural hypothyroidism Category: Medical Plan: monitor TSH Plan return in 3 months or sooner as needed Orders: Orders AMB Hemoglobin A1c 10/08/23 E11.9 - Type 2 diabetes mellitus without complications Medications: New semaglutide (Ozempic) 2 mg (0.75 mL) subcut QWEEK 9 mL 3RF Refilled dulaglutide (Trulicity) 4.5 mg (0.5 mL) subcut QWEEK 90 days 6.5 mL 1RF E11.9 - Type 2 diabetes mellitus without complications dulaglutide (Trulicity) 4.5 mg (0.5 mL) subcut QWEEK 90 days 6.5 mL 1RF E11.9 - Type 2 diabetes mellitus without complications Discontinued empagliflozin (Jardiance) Discontinued Reason: Doctor's Order 10 mg PO DAILY 90 days 90 tabs 0RF tirzepatide (Mounjaro) Discontinued Reason: Insurance Denied 2.5 mg (0.5 mL) subcut QWEEK 4 weeks 2 mL 0RF E11.9 - Type 2 diabetes mellitus without complications Coding Level of Care Code Est Pt Level 5 (48728) Diagnoses Type 2 diabetes mellitus without complication, without long-term current use of insulin E11.9 Diabetes mellitus complication status: without complication Diabetes mellitus [facility] insulin use: without [facility] use Diabetes mellitus type: type 2 Postoperative hypothyroidism E89.0 Time Spent (min) 45
[2023-10-08 13:27] VITALS: BP 106/56; PULSE 88; BMI 24.3
[2023-10-08 13:44] LABS: Glucose, Whole Blood 361 mg/dL (60-115)
== END 2023-10-08 14:14 | disposition home or self-care (01) ==
PROVIDERS: PCP Internal Medicine; Visit Provider Internal Medicine
DX: E11.9 Type 2 diabetes mellitus without complications (principal); E89.0 Postprocedural hypothyroidism
CPT/HCPCS: 99215

== ENCOUNTER → 2023-10-08 13:19 | Outpatient (BNVA) | payer OTHER, SELFPAY | PROVIDERS: PCP Internal Medicine; Visit Provider Internal Medicine | DX: E11.9 Type 2 diabetes mellitus without complications (principal); E89.0 Postprocedural hypothyroidism | CPT/HCPCS: 82947; 83036; 99212 ==

== ENCOUNTER 2023-10-19 10:24 | Outpatient (AMB) | payer OTHER, SELFPAY ==
--- NOTE | 2023-10-19 10:47 | A.OFFVIS_ITS ---
VS Expanded 10/19/23 10:47 Weight 125 lb 14.143 oz Intake Visit Reasons: DM/CONFIRMED Allergies No Known Allergies Allergy (Verified 10/08/23 13:28) Nutrition Presentation Details: Pt presents for MNT f/u for T2DM Patient reports having 3 meals per day and 2-3 snacks a day. Reports she has stopped including some of the vegetables and also reducing on some of the plant sources of protein 10 am [place] (2 slices of bread ) with peanut butter or 2 slice of cheese or 3 slices of turkey or cheese and diet juice 2pm: Noodle soup with potatoes and chicken, diet beverage 6pm: Rice and chicken rice with a egg, no vegetables Snack on sugar free Jell-O, crackers with peanut butter, has not been including fruits Physical activity daily life activities BS Monitoring Most Recent Diabetes Results: Microalb/Creat Ratio 17.2 ug/mg cr (<30) 09/28/23 Cholesterol 136 mg/dL (<200) 09/28/23 HDL Cholesterol 43 mg/dL (>40) 09/28/23 Triglycerides 86 mg/dL (<150) 09/28/23 Creatinine 0.95 mg/dL (0.5-1.4) 09/28/23 Blood Urea Nitrogen 27 mg/dL (9-16) H 09/28/23 Sodium 137 mmol/L (135-145) 09/28/23 Potassium 4.3 mmol/L (3.3-5.1) 09/28/23 Chloride 104 mmol/L (96-108) 09/28/23 Carbon Dioxide 25 mmol/L (22-29) 09/28/23 Calcium 10.0 mg/dL (8.4-10.2) 09/28/23 AST 18 U/L (5-31) 09/28/23 ALT 21 U/L (0-31) 09/28/23 Total Protein 8.1 g/dL (6.5-8.0) H 09/28/23 Albumin 4.1 g/dL (3.5-5.0) 09/28/23 [facility] Medical History Vitamin D deficiency Candidal intertrigo Physical exam Developmental delay, mild Thyroid nodule Non-toxic multinodular goiter Palpitations Goiter Overweight (BMI 25.0-29.9) Dyslipidemia Diabetes mellitus Essential hypertension Surgical History H/O thyroidectomy Family History Father CAD (coronary artery disease) HTN (hypertension) Mother CAD (coronary artery disease) H/O heart valve replacement with bioprosthetic valve HTN (hypertension) Diabetes Gastrointestinal malignancy Sister HTN (hypertension) Diabetes Atrial fibrillation Familial hyperlipidemia Social History Household Members: Family Household Members Other:: Sister Joanie Housing: Apartment Alcohol intake: never Patient Tobacco Use Status: Never used Tobacco e-Cigarette/Vaping Use: Never Used Second Hand Smoke Exposure: No service: No Current occupational status: disabled Cognitive needs: No Hearing needs: No Vision needs: No Assessment & Plan Assessment & Plan (1) Diabetes mellitus: Code(s): E11.9 - Type 2 diabetes mellitus without complications Category: Medical Qualifiers: Diabetes mellitus type: type 2 Diabetes mellitus terminal make up operator insulin use: without terminal make up operator use Diabetes mellitus complication status: without complication Qualified Code(s): E11.9 - Type 2 diabetes mellitus without complications Plan: Review adding fiber into her diet ? EST Kcal NEEDS as per 25 kcal/kg bw: : 1500 ? ? ? USED? WT :? 55 kg est protein needs as per 0.8-1.0 g/kg bw: 44-55 g/d est fluid needs as per 25 ml/kg bw:? 1386 ml/d? Plan Patient Instructions: Include branch/lentils 1/2 c -1 with 1 chicken melt a meal to include fiber Add spinach to scrambled eggs, add green beans as a salad to your meals (with sandwiches) Have and apple with peanut butter as a snack Coding Level of Care Code Nutr Indiv Subseq (66606) Diagnoses Type 2 diabetes mellitus without complication, without long-term current use of insulin E11.9 Diabetes mellitus type: type 2 Diabetes mellitus terminal make up operator insulin use: without terminal make up operator use Diabetes mellitus complication status: without complication Time Spent (min) 30
== END 2023-10-19 11:19 | disposition home or self-care (01) ==
PROVIDERS: PCP Internal Medicine; Visit Provider Dietitian, Registered
DX: E11.9 Type 2 diabetes mellitus without complications (principal)

== ENCOUNTER → 2023-10-19 10:24 | Outpatient (BNVA) | payer OTHER, SELFPAY | PROVIDERS: PCP Internal Medicine; Visit Provider Dietitian, Registered | DX: E11.9 Type 2 diabetes mellitus without complications (principal); Z71.3 Dietary counseling and surveillance | CPT/HCPCS: 97803 ==

== ENCOUNTER 2023-11-03 16:16 | Outpatient (AMB) | payer OTHER, SELFPAY ==
--- NOTE | 2023-11-03 16:17 | A.OFFVIS_ITS ---
Vital Signs 11/03/23 16:19 Height 5 ft 1 in Weight 125 lb 10.616 oz BMI 23.7 BP 108/64 Blood Pressure Location Rt brachial Position Sitting Pulse 86 Pulse Source Pulse Oximeter Intake Visit Reasons: DM-Pt to see Debbie bubba Ramsey/KRYSTIAN Intake Note: Patient presents today for to re-establish treatment for Type 2 Diabetes Mellitus: Last Diabetic eye exam was on: DUE Last Podiatry exam was on: Does not see a Advertising Designer Most recent HbA1c: 12.3%, 10/08/2023 Random Glucose- 313mg/dL, Today Shingle Carrier Required: Yes Shingle Carrier Language: Factory Focus Technician Name: OSCAR Veloz/VANESSA Miller Information Interpreted: non-clinical & clinical Accompanied by: Sister Allergies No Known Allergies Allergy (Verified 10/08/23 13:28) HPI Comments Details: [62] YO [M/F] who is seen in f/u for T2DM. She was last seen by Dr. Rizo in September. She is followed by Dr. Perez for multiple thyroid nodules s/p thyroidectomy August 2023. Previous treatment: actos, metformin Current regimen [ozempic 2 mg glimipiride 2mg bid]. Glucose had been well controlled up until the spring when her numbers started to reach the 200 to 250 range. Her most recent A1c was 12.3% in September. Checks sugars [2] times per day. Average sugar: [250 in the am before breakfast and 300 in the evening. She lives with her sister who assits in medication administration. Family history of T2DM in [sister]. Has eyes checked yearly, [Denies ] neuropathy on [NICK]. +microalbumin 2023 [Has] HLD, on [statin]. Last LDL [76] as measured on [2023]. [Denies] CAD. Diet: [Has met with pattern data operator. 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 She is currently replaced on 88 mcg levothyroxine. She appears to be clinically euthyroid. Most recent TSH in September was in good range. She has a longstanding history of a NTMNG and was previously followed by Dr. Sotelo. She underwent FNA biposy 05/24/[address] Sotelo of the following nodules with the following results: Left mid pole 3.4 cm thyroid nodule: benign (bethesda category II) Left lower pole 1.5 cm thyroid nodule: benign (bethesda category II) Right pole 4.1 cm thyroid nodule: atypia of undetermined significance (bethesda category III), affirma benign She opted to undergo surveillance for her right pole nodule with yearly US. She had a repeat thyroid US 11/29/2020 which revealed significant change of her right mid pole nodule. She then underwent FNA biopsy of this Right mid pole 4.6 cm thyroid nodule by al 06/20/2021, with benign cytology (bethesda category II). Her Right lower pole 1.0 cm thyroid nodule was found to be spongifirm, so no FNA biopsy was indicated. Repeat thyroid US 07/24/2022 revealed significant change in multiple nodules and thyroidectomy was done August 2023. She reports feeling well and has no complaints. Recent TSH in good range. Thyroid US: 11/29/2020 Right Thyroid Lobe: 6.3 x 3.1 x 3.1 cm, volume 32.0 mL. Previously 5.8 x 2.5 x 3.1 cm, volume 23.5 mL. Parenchyma: The gland echotexture is heterogeneous. Thyroid vascularity is increased. Left Thyroid Lobe: 6.1 x 1.7 x 2.3 cm, volume 12.2 mL. Previously 5.7 x 1.8 x 1.9 cm, volume 10.2 mL. Parenchyma: The gland echotexture is heterogeneous. Thyroid vascularity is increased. Isthmus: 0.4 cm in maximum AP dimension. Previously 0.5 cm. Estimated total number of nodules greater than or equal to 1 cm: 4. Editor Managing Newspaper nodules are described as follows: 1.? Location: Right mid. ?? ? Size: 4.6 x 3.3 x 3.0 cm, volume 24.0 mL. ?? ? Previously: 4.1 x 2.3 x 3.0 cm, volume 14.8 mL. ?? ? Nodule characteristics: ?? ? Composition: Solid/almost completely solid (2). ?? ? Echogenicity: Isoechoic (1). ?? ? Shape: Taller than wide (3). ?? ? Margins: Smooth (0). ?? ? Echogenic Foci: None (0).? ACR TI-RADS total points: 6 ?? ? ACR TI-RADS category: 4 ?? ? This appears increased in size. Differences in measurement may be due to interobserver variation of nodule margins. Additionally, measuring the nodule with a curved as opposed to linear transducer may be helpful. 2.? Location: Right mid. ?? ? Size: 0.6 x 0.7 x 0.9 cm, volume 0.2 mL. ?? ? Previously: 0.8 x 0.4 x 0.9 cm, volume 0.2 mL. ?? ? Nodule characteristics: ?? ? Composition: Cystic(0). ?? ? ACR TI-RADS total points: 0 ?? ? ACR TI-RADS category: 1 ? Significant change in size (>/= 20% in 2 dimensions and minimal increase of 2 mm or 50% or greater increase in volume): ?? ? Change in features: ?? ? Change in ACR TI-RADS risk category: 3.? Location: Right inferior. ?? ? Size: 1.0 x 0.6 x 0.8 cm, volume 0.2 mL. ?? ? Previously: 0.7 x 0.5 x 0.8 cm, volume 0.14 mL. ?? ? Nodule characteristics: ?? ? Composition: Cystic(0). ?? ? ACR TI-RADS total points: 0 ?? ? ACR TI-RADS category: 1 ? Significant change in size (>/= 20% in 2 dimensions and minimal increase of 2 mm or 50% or greater increase in volume): ?? ? Change in features: ?? ? Change in ACR TI-RADS risk category: 4.? Location: Left mid. ?? ? Size: 2.8 x 1.3 x 1.9 cm, volume 3.6 mL. ?? ? Previously: 3.4 x 1.4 x 1.8 cm, volume 4.5 mL. ?? ? Nodule characteristics: ?? ? Composition: Mixed cystic and solid (1). ?? ? Echogenicity: Isoechoic (1). ?? ? Shape: Not taller than wide (0). ?? ? Margins: Smooth (0). ?? ? Echogenic Foci: None (0).? ACR TI-RADS total points: 2 ?? ? ACR TI-RADS category: 2 ?? ? This is decreased in size and appears more solid and less cystic than on prior exam January 2020. This may be related to changes related to fine-needle aspiration April 2020. 5.? Location: Left inferior. ?? ? Size: 0.8 x 0.3 x 0.7 cm, volume 0.08 mL. ?? ? Previously: 1.5 x 0.6 x 0.9 cm, volume 0.4 mL. ?? ? Nodule characteristics: ?? ? Composition: Solid/almost completely solid (2). ?? ? Echogenicity: Isoechoic (1). ?? ? Shape: Not taller than wide (0). ?? ? Margins: Smooth (0). ?? ? Echogenic Foci: None (0). ? ACR TI-RADS total points: 3 ?? ? ACR TI-RADS category: 3 ? Significant change in size (>/= 20% in 2 dimensions and minimal increase of 2 mm or 50% or greater increase in volume): ?? ? Change in features: ?? ? Change in ACR TI-RADS risk category: NODES: No lymphadenopathy is seen in the tissue surrounding the thyroid gland. post-operative hypothyroidism status post total thyroidectomy 4 weeks ago. He is currently replaced on 88 mcg levothyroxine. She appears to be clinically euthyroid [facility] Medical History Vitamin D deficiency Candidal intertrigo Physical exam Developmental delay, mild Thyroid nodule Non-toxic multinodular goiter Palpitations Goiter Overweight (BMI 25.0-29.9) Dyslipidemia Diabetes mellitus Essential hypertension Surgical History H/O thyroidectomy Family History Father CAD (coronary artery disease) HTN (hypertension) Mother CAD (coronary artery disease) H/O heart valve replacement with bioprosthetic valve HTN (hypertension) Diabetes Gastrointestinal malignancy Sister HTN (hypertension) Diabetes Atrial fibrillation Familial hyperlipidemia Social History Household Members: Family Household Members Other:: Sister Joanie Housing: Apartment Alcohol intake: never Patient Tobacco Use Status: Never used Tobacco e-Cigarette/Vaping Use: Never Used Second Hand Smoke Exposure: No service: No Current occupational status: disabled Cognitive needs: No Hearing needs: No Vision needs: No Physical Exam Vital Signs: Last Vital Signs Pulse 86 11/03/23 16:19 BP 108/64 11/03/23 16:19 BMI result Body Mass Index 23.7 Absence of Cushingoid features. Absence of acromegalic features. Neck exam reveals nl size thyroid about 15 gms. No thyroid nodules palpable. No carotid bruits present. Lungs CTA. Heart S1 S2, Reg R/R. No M/R/ G. Skin exam reveals absence of vitiligo or acanthosis nigricans. Abdominal exam reveals Soft NT/ND with NA BS. No organomegaly present. Const General: cooperative Nutritional Appearance: average body habitus Limitations: no limitations Neck Other: well healed incision no adenopathy Neck: Yes normal visual inspection Resp Effort & Inspection: normal respiratory effort Extrem Other: Visual exam of foot performed. No ulcerations or open lesions. No onchomycosis, no callouses.Pulses 2 + distally Sensation intact to monofilament exam. Vibratory sensation sensed is intact with 128 Hz tuning fork Results Reviewed Results Reviewed: Laboratory Last Values Glucose (Clinic) 313 mg/dL (60-115) H 11/03/23 16:25 Laboratory Tests 01/25/20 07/02/23 09/28/23 12:15 15:30 10:42 Potassium Creatinine Estimated GFR Glucose (Clinic) Fasting Glucose Hgb A1c (Clinic) 6.7 H Calcium AST ALT Albumin Triglycerides Cholesterol LDL Cholesterol, Calc HDL Cholesterol 25-OH Vitamin D Total TSH Urine Creatinine 174.25 Urine Microalbumin 30.0 Microalb/Creat Ratio 17.2 Thyroglobulin Antibody <1 Thyroid Peroxidase Ab 6 09/28/23 10/08/23 10/08/23 10:47 13:37 13:43 Potassium 4.3 Creatinine 0.95 Estimated GFR 60 Glucose (Clinic) 361 H* Fasting Glucose 309 H Hgb A1c (Clinic) 12.3 H Calcium 10.0 D AST 18 ALT 21 Albumin 4.1 Triglycerides 86 Cholesterol 136 LDL Cholesterol, Calc 76 HDL Cholesterol 43 25-OH Vitamin D Total 36.5 TSH 1.11 Urine Creatinine Urine Microalbumin Microalb/Creat Ratio Thyroglobulin Antibody Thyroid Peroxidase Ab Assessment & Plan Assessment & Plan (1) Diabetes mellitus: Code(s): E11.9 - Type 2 diabetes mellitus without complications Category: Medical Qualifiers: Diabetes mellitus type: type 2 Diabetes mellitus iron worker insulin use: without iron worker use Diabetes mellitus complication status: without complication Qualified Code(s): E11.9 - Type 2 diabetes mellitus without complications Plan: Type 2 diabetic previously well controlled now with glucose readings 250-300, Continue ozempic 2mg, continue glimipiride. Start Treisba 10 units in the evening and humalog 4 units with brunch and supper. Will see her back in one week, review numbers and adjust insulin as needed. Will d/c glimipiride at that time. will start on FS raymond 3 Medications: New pen needle, diabetic (BD Ultra-Fine Dalia Pen Needle) As directed tid 100 ea 11RF E11.9 - Type 2 diabetes mellitus without complications insulin degludec (Tresiba FlexTouch U-100 insulin) 10 units (0.1 mL) subcut QPM 30 days 3 mL 6RF E11.9 - Type 2 diabetes mellitus without complications insulin lispro (Humalog KwikPen (U-100) Insulin) take with breakfast and supper 4 units (0.04 mL) subcut BID 30 days 6 mL 11RF E11.9 - Type 2 diabetes mellitus without complications blood-glucose sensor (FreeStyle Raymond 3 Sensor device) As directed 2 ea 11RF Discontinued dulaglutide (Trulicity) Discontinued Reason: Doctor's Order 4.5 mg (0.5 mL) subcut QWEEK 90 days 6.5 mL 1RF E11.9 - Type 2 diabetes mellitus without complications Coding Level of Care Code Est Pt Level 4 (96234) Complex EM visit Add On G2211 Diagnoses Type 2 diabetes mellitus without complication, without long-term current use of insulin E11.9 Diabetes mellitus type: type 2 Diabetes mellitus correction insulin use: without correction use Diabetes mellitus complication status: without complication Time Spent (min) 30 Comment chart review, face to face and documentation
[2023-11-03 16:19] VITALS: BP 108/64; PULSE 86; BMI 23.7
[2023-11-03 16:38] LABS: Glucose, Whole Blood 313 mg/dL (60-115)
== END 2023-11-03 16:59 | disposition home or self-care (01) ==
PROVIDERS: PCP Internal Medicine; Visit Provider Nurse Practitioner Adult Health
DX: E11.9 Type 2 diabetes mellitus without complications (principal)
CPT/HCPCS: 99214; G2211

== ENCOUNTER → 2023-11-03 16:16 | Outpatient (BNVA) | payer OTHER, SELFPAY | PROVIDERS: PCP Internal Medicine; Visit Provider Nurse Practitioner Adult Health | DX: E11.9 Type 2 diabetes mellitus without complications (principal); Z71.3 Dietary counseling and surveillance | CPT/HCPCS: 82947; 99212 ==

== ENCOUNTER 2023-11-07 09:32 | Outpatient (REF) | payer OTHER, SELFPAY ==
[2023-11-07 10:49] LABS: Creatinine Urine 166.52 mg/dL; Microalbum/Creatinine Ratio Ur 4.2 ug/mg cr (<30)
[2023-11-07 10:55] LABS: Alanine Aminotransferase 19 U/L (0-31); Albumin Level 3.9 g/dL (3.5-5.0); Alkaline Phosphatase 77 U/L (39-117); Anion Gap 14 (12-20); Aspartate Amino Transferase 21 U/L (5-31); Bilirubin Total 0.5 mg/dL (0.0-1.0); Blood Urea Nitrogen 23 mg/dL (9-16); Calcium 9.7 mg/dL (8.4-10.2); Carbon Dioxide 21 mmol/L (22-29); Chloride 108 mmol/L (96-108); Cholesterol 143 mg/dL (<200); Estimated Glomerular Filt Rate > 60; Glucose Fasting 137 mg/dL (60-99); HDL Cholesterol 44 mg/dL (>40); LDL Cholesterol Calculated 85 mg/dL (<100); Potassium 3.9 mmol/L (3.3-5.1); Sodium 139 mmol/L (135-145); Total Protein 7.8 g/dL (6.5-8.0); Triglycerides 71 mg/dL (<150)
[2023-11-07 11:12] LABS: Free T4 (Free Thyroxine) 1.07 ng/dL (0.71-1.85); Thyroid Stimulating Hormone 2.47 uIU/mL (0.32-4.0)
== END 2023-11-07 09:33 | disposition home or self-care (01) ==
LOC: HO.LAB 09:32
PROVIDERS: Internal Medicine Endocrinology, Diabetes & Metabolism; PCP Internal Medicine; Visit Provider Internal Medicine
DX: E11.9 Type 2 diabetes mellitus without complications (principal); E89.0 Postprocedural hypothyroidism; E78.5 Hyperlipidemia, unspecified
CPT/HCPCS: 36415; 80053; 80061; 82043; 82570; 84439; 84443

== ENCOUNTER 2023-11-11 09:45 | Outpatient (AMB) | payer OTHER, SELFPAY ==
--- NOTE | 2023-11-11 09:50 | MHC.PC.OV ---
Vital Signs 11/11/23 09:52 Height 5 ft 1 in Weight 123 lb BMI 23.2 BP 132/80 Blood Pressure Location Lt brachial Position Sitting Intake Visit Reasons: dm Intake Note: Patient here for a follow up DM Tap Builder Required: No Accompanied by: Self / Same As Patient Allergies No Known Allergies Allergy (Verified 11/11/23 10:04) Medication List - Last Reconciled 11/11/23 by Faith Ny MD amlodipine 2.5 mg PO DAILY 90 days atorvastatin 80 mg PO BEDTIME 90 days blood pressure monitor As directed blood sugar diagnostic (FreeStyle Lite Strips) Use 1 test strip three times per day blood sugar diagnostic As directed blood-glucose meter (FreeStyle Lite Meter kit) As directed blood-glucose sensor (FreeStyle Raymond 3 Sensor device) As directed glimepiride 2 mg PO DAILY 90 days insulin degludec (Tresiba FlexTouch U-100 insulin) 10 units (0.1 mL) subcut QPM 30 days insulin lispro (Humalog KwikPen (U-100) Insulin) 4 units (0.04 mL) subcut BID 30 days lancets (FreeStyle Lancets) Use 1 lancet three times per day lancets As directed levothyroxine 88 mcg PO DAILY lisinopril 40 mg PO DAILY 90 days metoprolol succinate ER 25 mg PO DAILY nystatin 1 appl topical BID 2 weeks pen needle, diabetic (BD Ultra-Fine Dalia Pen Needle) As directed tid semaglutide (Ozempic) 2 mg (0.75 mL) subcut QWEEK Tobacco use date assessed: 07/02/23 Dental Screening Dental Screen Date: 07/02/23 HPI HPI Comments History of Present Illness Details This is a 62-year-old female with diabetes mellitus type 2, postoperative hypothyroidism, hypertension and hyperlipidemia that comes today for follow-up on her conditions. Last A1c was elevated but her fasting blood glucose has improved since she has been on insulin. She does follows with endocrinology. TSH normal. Blood pressure stable. LDL not on goal and I will add Zetia to her atorvastatin. Denies any chest pain or shortness on breath. [facility] Medical History (Updated 11/11/23 @ 11:10 by Faith Ny MD) Vitamin D deficiency Candidal intertrigo Physical exam Developmental delay, mild Thyroid nodule Non-toxic multinodular goiter Palpitations Goiter Overweight (BMI 25.0-29.9) Dyslipidemia Diabetes mellitus Essential hypertension Surgical History H/O thyroidectomy Family History Father CAD (coronary artery disease) HTN (hypertension) Mother CAD (coronary artery disease) H/O heart valve replacement with bioprosthetic valve HTN (hypertension) Diabetes Gastrointestinal malignancy Sister HTN (hypertension) Diabetes Atrial fibrillation Familial hyperlipidemia Social History Household Members: Family Household Members Other:: Sister Joanie Housing: Apartment Alcohol intake: never Patient Tobacco Use Status: Never used Tobacco e-Cigarette/Vaping Use: Never Used Second Hand Smoke Exposure: No service: No Current occupational status: disabled Cognitive needs: No Hearing needs: No Vision needs: No Questionnaire Thrive Questionnaire Date Thrive assessed: 07/02/23 ANGELA-7 AMB Questionnaire ANGELA-7 Date ANGELA - 7 assessed: 07/02/23 Source: Developed by Drs. Ke Gamble, Lina Acosta, Harshad Perez and colleagues, with an educational dallin from [employer]. Review of Systems Const All systems reviewed & are unremarkable except as noted in HPI and below Card Denies chest pain at rest, Denies chest pain with activity, Denies edema, Denies irregular heart rhythm, Denies claudication, Denies dyspnea, Denies dyspnea on exertion, Denies orthopnea, Denies paroxysmal nocturnal dyspnea and Denies slow heart rate Resp Denies cough, Denies dyspnea and Denies dyspnea on exertion GI Denies abdominal pain, Denies change in bowel habits, Denies excessive flatus, Denies nausea and Denies vomiting Denies urinary incontinence, Denies urinary hesitancy and Denies urinary urgency Physical exam (Primary Care) Vital Signs: Last Vital Signs BP 132/80 11/11/23 09:52 BMI result Body Mass Index 23.2 Tobacco/Smoking Status: Tobacco use Status Tobacco use date assessed 07/02/23 11/11/23 09:52 Patient Tobacco Use Status Never used Tobacco 11/11/23 09:52 e-Cigarette/Vaping Use Never Used 11/11/23 09:52 Thrive Assessment: Date of Thrive Assessment Date Thrive assessed 07/02/23 11/11/23 09:52 Resp Effort & Inspection: normal respiratory effort Auscultation: clear to auscultation bilaterally Cardio Jugular venous distension: no JVD Rate: regular rate Rhythm: regular rhythm Heart sounds: S1 normal heart sound present and S2 normal heart sound present Extrem General: Yes full ROM Assessment and Plan Assessment & Plan (1) Diabetes mellitus: Code(s): E11.9 - Type 2 diabetes mellitus without complications Qualifiers: Diabetes mellitus type: type 2 Diabetes mellitus fpc insulin use: without fpc use Diabetes mellitus complication status: without complication Qualified Code(s): E11.9 - Type 2 diabetes mellitus without complications Plan: Continue Ozempic, metformin and insulin. A1c goal is equal or less than 7%. (2) Essential hypertension: Code(s): I10 - Essential (primary) hypertension Plan: Continue lisinopril and amlodipine. Blood pressure goal is equal or less than 130/80. (3) Dyslipidemia: Code(s): E78.5 - Hyperlipidemia, unspecified Plan: Continue statins. Repeat lipid panel. LDL goal is less than 70. (4) Postoperative hypothyroidism: Code(s): E89.0 - Postprocedural hypothyroidism Plan: Continue levothyroxine. Monitor TSH. Orders: Orders Microalbumin, Random (w Creat) 4 Months E11.9 - Type 2 diabetes mellitus without complications Comprehensive [place]. Panel Fast 4 Months E11.9 - Type 2 diabetes mellitus without complications Lipid Panel 4 Months E78.5 - Hyperlipidemia, unspecified Vitamin D 25-OH Total 4 Months E55.9 - Vitamin D deficiency, unspecified Medications: New cetirizine (All Day Allergy (cetirizine)) 10 mg PO DAILY PRN 90 tabs 1RF allergy symptoms 90 days ezetimibe 10 mg PO DAILY 90 tabs 1RF 90 days Coding Level of Care Code Est Pt Level 4 (29225) Complex EM visit Add On G2211 Diagnoses Type 2 diabetes mellitus without complication, without long-term current use of insulin E11.9 Diabetes mellitus type: type 2 Diabetes mellitus vermin 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
[2023-11-11 09:52] VITALS: BP 132/80; BMI 23.2
== END 2023-11-11 10:14 | disposition home or self-care (01) ==
PROVIDERS: PCP Internal Medicine; Visit Provider Internal Medicine
DX: E11.9 Type 2 diabetes mellitus without complications (principal); I10 Essential (primary) hypertension; E78.5 Hyperlipidemia, unspecified; E89.0 Postprocedural hypothyroidism
CPT/HCPCS: 99214; G2211

== ENCOUNTER 2023-11-11 10:26 | Outpatient (AMB) | payer OTHER, SELFPAY ==
--- NOTE | 2023-11-11 10:31 | A.OFFVIS_ITS ---
Vital Signs 11/11/23 10:39 Height 5 ft 1 in Weight 125 lb 10.616 oz BMI 23.7 BP 130/78 Blood Pressure Location Rt brachial Position Sitting Pulse 5 L Pulse Source Pulse Oximeter Intake Visit Reasons: dm/CONFIRMED Intake Note: Patient presents today for a follow-up on Type 2 Diabetes Mellitus: Last Diabetic eye exam was on: DUE Last Podiatry exam was on: Does not see a Sports Instructor Most recent HbA1c: 12.3%, 10/08/2023 Random Glucose- 144 mg/dL, Today Carton Maker Required: Yes Carton Maker Language: Etl Application Developer Services: Carton Maker Present Carton Maker Name: OSCAR Veloz/VANESSA Miller Information Interpreted: non-clinical & clinical Accompanied by: Self / Same As Patient Allergies No Known Allergies Allergy (Verified 11/11/23 10:04) HPI Comments Details: 62 year old with type 2 diabetes last seen by myself two weeks ago and started on low dose Tresiba and Humalog for glucose readings in the 250-300 range. She is also followed by Dr. Perez for multiple thyroid nodules s/p thyroidectomy August 2023. Current Rx Tresiba 10 units Humalog 4 units for brunch and supper. Glimipiride 2mg daily. Ozempic 2mg weekly. Previous treatment: actos, metformin. Want to Freestyle nga sensor average glucose: [155] Glucose Management indicator [not available%] TIme in range: [ 6 % very high (above 250) [14 ] % high (181-250) [ 80] % in range (70-180] [0 ] % low (69-55) [0 ] % very low (below 54) Has eyes checked yearly, [Denies ] neuropathy on [NICK]. +microalbumin 2023 [Has] HLD, on [statin]. Last LDL [76] as measured on [2023]. [Denies] CAD. Diet: [Has met with waiter/waitress formal. 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 She is currently replaced on 88 mcg levothyroxine. She appears to be clinically euthyroid. Most recent TSH in September was in good range. She has a longstanding history of a NTMNG and was previously followed by Dr. Sotelo. She underwent FNA biposy 05/24/[address] Sotelo of the following nodules with the following results: Left mid pole 3.4 cm thyroid nodule: benign (bethesda category II) Left lower pole 1.5 cm thyroid nodule: benign (bethesda category II) Right pole 4.1 cm thyroid nodule: atypia of undetermined significance (bethesda category III), affirma benign She opted to undergo surveillance for her right pole nodule with yearly US. She had a repeat thyroid US 11/29/2020 which revealed significant change of her right mid pole nodule. She then underwent FNA biopsy of this Right mid pole 4.6 cm thyroid nodule by wy 06/20/2021, with benign cytology (bethesda category II). Her Right lower pole 1.0 cm thyroid nodule was found to be spongifirm, so no FNA biopsy was i ndicated. Repeat thyroid US 07/24/2022 revealed significant change in multiple nodules and thyroidectomy was done August 2023. She reports feeling well and has no complaints. Recent TSH in good range. Thyroid US: 11/29/2020 Right Thyroid Lobe: 6.3 x 3.1 x 3.1 cm, volume 32.0 mL. Previously 5.8 x 2.5 x 3.1 cm, volume 23.5 mL. Parenchyma: The gland echotexture is heterogeneous. Thyroid vascularity is increased. Left Thyroid Lobe: 6.1 x 1.7 x 2.3 cm, volume 12.2 mL. Previously 5.7 x 1.8 x 1.9 cm, volume 10.2 mL. Parenchyma: The gland echotexture is heterogeneous. Thyroid vascularity is increased. Isthmus: 0.4 cm in maximum AP dimension. Previously 0.5 cm. Estimated total number of nodules greater than or equal to 1 cm: 4. Freight Team Associate nodules are described as follows: 1.? Location: Right mid. ?? ? Size: 4.6 x 3.3 x 3.0 cm, volume 24.0 mL. ?? ? Previously: 4.1 x 2.3 x 3.0 cm, volume 14.8 mL. ?? ? Nodule characteristics: ?? ? Composition: Solid/almost completely solid (2). ?? ? Echogenicity: Isoechoic (1). ?? ? Shape: Taller than wide (3). ?? ? Margins: Smooth (0). ?? ? Echogenic Foci: None (0).? ACR TI-RADS total points: 6 ?? ? ACR TI-RADS category: 4 ?? ? This appears increased in size. Differences in measurement may be due to interobserver variation of nodule margins. Additionally, measuring the nodule with a curved as opposed to linear transducer may be helpful. 2.? Location: Right mid. ?? ? Size: 0.6 x 0.7 x 0.9 cm, volume 0.2 mL. ?? ? Previously: 0.8 x 0.4 x 0.9 cm, volume 0.2 mL. ?? ? Nodule characteristics: ?? ? Composition: Cystic(0). ?? ? ACR TI-RADS total points: 0 ?? ? ACR TI-RADS category: 1 ? Significant change in size (>/= 20% in 2 dimensions and minimal increase of 2 mm or 50% or greater increase in volume): ?? ? Change in features: ?? ? Change in ACR TI-RADS risk category: 3.? Location: Right inferior. ?? ? Size: 1.0 x 0.6 x 0.8 cm, volume 0.2 mL. ?? ? Previously: 0.7 x 0.5 x 0.8 cm, volume 0.14 mL. ?? ? Nodule characteristics: ?? ? Composition: Cystic(0). ?? ? ACR TI-RADS total points: 0 ?? ? ACR TI-RADS category: 1 ? Significant change in size (>/= 20% in 2 dimensions and minimal increase of 2 mm or 50% or greater increase in volume): ?? ? Change in features: ?? ? Change in ACR TI-RADS risk category: 4.? Location: Left mid. ?? ? Size: 2.8 x 1.3 x 1.9 cm, volume 3.6 mL. ?? ? Previously: 3.4 x 1.4 x 1.8 cm, volume 4.5 mL. ?? ? Nodule characteristics: ?? ? Composition: Mixed cystic and solid (1). ?? ? Echogenicity: Isoechoic (1). ?? ? Shape: Not taller than wide (0). ?? ? Margins: Smooth (0). ?? ? Echogenic Foci: None (0).? ACR TI-RADS total points: 2 ?? ? ACR TI-RADS category: 2 ?? ? This is decreased in size and appears more solid and less cystic than on prior exam January 2020. This may be related to changes related to fine-needle aspiration April 2020. 5.? Location: Left inferior. ?? ? Size: 0.8 x 0.3 x 0.7 cm, volume 0.08 mL. ?? ? Previously: 1.5 x 0.6 x 0.9 cm, volume 0.4 mL. ?? ? Nodule characteristics: ?? ? Composition: Solid/almost completely solid (2). ?? ? Echogenicity: Isoechoic (1). ?? ? Shape: Not taller than wide (0). ?? ? Margins: Smooth (0). ?? ? Echogenic Foci: None (0). ? ACR TI-RADS total points: 3 ?? ? ACR TI-RADS category: 3 ? Significant change in size (>/= 20% in 2 dimensions and minimal increase of 2 mm or 50% or greater increase in volume): ?? ? Change in features: ?? ? Change in ACR TI-RADS risk category: NODES: No lymphadenopathy is seen in the tissue surrounding the thyroid gland. post-operative hypothyroidism status post total thyroidectomy 4 weeks ago. He is currently replaced on 88 mcg levothyroxine. She appears to be clinically euthyroid [facility] Medical History Vitamin D deficiency Candidal intertrigo Physical exam Developmental delay, mild Thyroid nodule Non-toxic multinodular goiter Palpitations Goiter Overweight (BMI 25.0-29.9) Dyslipidemia Diabetes mellitus Essential hypertension Surgical History H/O thyroidectomy Family History Father CAD (coronary artery disease) HTN (hypertension) Mother CAD (coronary artery disease) H/O heart valve replacement with bioprosthetic valve HTN (hypertension) Diabetes Gastrointestinal malignancy Sister HTN (hypertension) Diabetes Atrial fibrillation Familial hyperlipidemia Social History Household Members: Family Household Members Other:: Sister Joanie Housing: Apartment Alcohol intake: never Patient Tobacco Use Status: Never used Tobacco e-Cigarette/Vaping Use: Never Used Second Hand Smoke Exposure: No service: No Current occupational status: disabled Cognitive needs: No Hearing needs: No Vision needs: No Physical Exam Vital Signs: Last Vital Signs Pulse 5 L 11/11/23 10:39 BP 130/78 11/11/23 10:39 BMI result Body Mass Index 23.7 Const Other: Absence of Cushingoid features. Absence of acromegalic features. Neck exam reveals nl size thyroid about 15 gms. No thyroid nodules palpable. No carotid bruits present. Lungs CTA. Heart S1 S2, Reg R/R. No M/R G. Skin exam reveals absence of vitiligo or acanthosis nigricans. Well healed thryoidectomy scar. Extrem Other: Visual exam of foot performed. No ulcerations or open lesions. No onchomycosis, no callouses. Sensation intact to monofilament exam. Vibratory sensation is normal with 128 Hz tuning fork. Results Reviewed Results Reviewed: Laboratory Last Values Glucose (Clinic) 144 mg/dL (60-115) H 11/11/23 10:44 Laboratory Tests 11/04/21 03/17/22 07/03/22 10:34 10:08 15:13 Potassium Creatinine Estimated GFR Hgb A1c (Clinic) 6.7 H 5.8 6.2 H Calcium AST ALT Triglycerides Cholesterol LDL Cholesterol, Calc HDL Cholesterol 25-OH Vitamin D Total TSH Free T4 Urine Microalbumin 11/06/22 03/18/23 06/23/23 10:39 09:46 10:50 Potassium Creatinine Estimated GFR Hgb A1c (Clinic) 6.9 H Calcium AST ALT Triglycerides Cholesterol LDL Cholesterol, Calc HDL Cholesterol 25-OH Vitamin D Total 31.6 TSH Free T4 Urine Microalbumin 11.0 07/02/23 10/08/23 11/07/23 15:30 13:43 09:40 Potassium 3.9 Creatinine 0.79 Estimated GFR > 60 Hgb A1c (Clinic) 6.7 H 12.3 H Calcium 9.7 AST 21 ALT 19 Triglycerides 71 Cholesterol 143 LDL Cholesterol, Calc 85 HDL Cholesterol 44 25-OH Vitamin D Total TSH 2.47 Free T4 1.07 Urine Microalbumin Assessment & Plan Assessment & Plan (1) Diabetes mellitus: Code(s): E11.9 - Type 2 diabetes mellitus without complications Category: Medical Qualifiers: Diabetes mellitus complication status: without complication Diabetes mellitus fpc insulin use: without termite treater use Diabetes mellitus type: type 2 Qualified Code(s): E11.9 - Type 2 diabetes mellitus without complications Plan: Type 2 diabetic recently started on Tresiba and Humalog. Doing much better on insulin with avg. 155. Patient was advised to stop glimipiride. She was couneled if her sugar average goes above 170 to notify our office and an adjustment in insulin can be made. Continue Ozempic. (2) Postoperative hypothyroidism: Code(s): E89.0 - Postprocedural hypothyroidism Category: Medical Plan: TSH in good range. Continue current dose of Levothyroxine. Obtain path report from thryoidectomy. Medications: Changed From levothyroxine 88 mcg PO DAILY E89.0 - Postprocedural hypothyroidism To levothyroxine 88 mcg PO DAILY 30 tabs 11RF 30 days E89.0 - Postprocedural hypothyroidism Discontinued glimepiride Discontinued Reason: No Longer Medically Relevant 2 mg PO DAILY 90 days 90 tabs 0RF Patient Instructions: rule of 15 Coding Level of Care Code Est Pt Level 4 (93631) Complex EM visit Add On G2211 Diagnoses Type 2 diabetes mellitus without complication, without long-term current use of insulin E11.9 Diabetes mellitus complication status: without complication Diabetes mellitus termite treater insulin use: without termite treater use Diabetes mellitus type: type 2 Postoperative hypothyroidism E89.0 Time Spent (min) 30 Comment Time spent reviewing labs/provider notes, sensor reports, face to face, chart doc
[2023-11-11 10:39] VITALS: BP 130/78; PULSE 5; BMI 23.7
[2023-11-11 10:48] LABS: Glucose, Whole Blood 144 mg/dL (60-115)
== END 2023-11-11 11:18 | disposition home or self-care (01) ==
PROVIDERS: PCP Internal Medicine; Visit Provider Nurse Practitioner Adult Health
DX: E11.9 Type 2 diabetes mellitus without complications (principal); E89.0 Postprocedural hypothyroidism
CPT/HCPCS: 99214; G2211

== ENCOUNTER → 2023-11-11 10:26 | Outpatient (BNVA) | payer OTHER, SELFPAY | PROVIDERS: PCP Internal Medicine; Visit Provider Nurse Practitioner Adult Health | DX: E11.9 Type 2 diabetes mellitus without complications (principal); E89.0 Postprocedural hypothyroidism | CPT/HCPCS: 82947; 99212 ==

== ENCOUNTER 2023-12-08 10:47 | Outpatient (AMB) | payer OTHER, SELFPAY ==
--- NOTE | 2023-12-08 07:11 | A.OFFVIS_ITS ---
Vital Signs 12/08/23 11:07 Height 5 ft 1 in Weight 123 lb 7.342 oz BMI 23.3 BP 120/70 Blood Pressure Location Rt brachial Position Sitting Pulse 82 Pulse Source Pulse Oximeter Intake Visit Reasons: DM/LVM Intake Note: Patient presents today for a follow-up on Type 2 Diabetes Mellitus: Last Diabetic eye exam was on: DUE Last Podiatry exam was on: Does not see a Injection Maintenance Technician Most recent HbA1c: 12.3%, 10/08/2023 Random Glucose- 112mg/dL, Today Wic Site Coordinator Required: Yes Wic Site Coordinator Language: Band Booker Services: Wic Site Coordinator Present Wic Site Coordinator Name: OSCAR Veloz/VANESSA THOMAS Information Interpreted: non-clinical & clinical Accompanied by: Self / Same As Patient Allergies No Known Allergies Allergy (Verified 12/08/23 11:07) HPI Comments Details: 62 year old with type 2 diabetes last seen by myself two weeks ago and was recently changed from Lantus to low dose Tresiba and Humalog for glucose readings in the 250-300 range.Last visit glucose was in the 150 range and daily glimepiride was discontinued. Last A1c was 12.3% on 10/08/23. She is also followed by Dr. Perez for multiple thyroid nodules s/p near total thyroidectomy August 2023. Previous treatment: actos, metformin Current Rx: Tresiba 10 units Humalog 4 units for brunch and supper If she eats a lower carb meal, she does not take the premeal insulin Ozempic 2mg weekly Freestyle nga sensor 3 average glucose: [136 ] 14 day continuous glucose sensor report reviewed Glucose Management indicator 6.6 % Time CGM active 70 % TIme in ranges: 2 % very high (above 250) 11 % high (181-250) 87 % in range (70-180] 0 % low (69-55) 0 % very low (below 54) [30% ] Glucose variability (target <36%) Interpretation of CGMS [glucose readings at target by the a.m., average increase after lunch to 250 ] Denies retinopathy Has eyes checked yearly Denies neuropathy Nephropathy: on [NICK]. +microalbumin 2023 HLD on statin and Zetia Last LDL 76 as measured on 2023 [Denies] CAD. Diet: Has met with trench trimmer fine. Eats a late breakfast around 11am 2 slice toast with pbj, small glass oj, supper 2 boiled eggs with veg She has a longstanding history of a NTMNG Post-operative hypothyroidism status post near total thyroidectomy August 2023. She is currently replaced on 88 mcg levothyroxine. She appears to be clinically euthyroid. Most recent TSH TSH 2.47 on 10/08/23. 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 Perez 12/08/23 No need for thyroid suppression or furthur follow up study as this is a benign finding. 1 presley thyroidal lymph node with no pathological changes. ?? ? [facility] Medical History Vitamin D deficiency Candidal intertrigo Physical exam Developmental delay, mild Thyroid nodule Non-toxic multinodular goiter Palpitations Goiter Overweight (BMI 25.0-29.9) Dyslipidemia Diabetes mellitus Essential hypertension Surgical History H/O thyroidectomy Family History Father CAD (coronary artery disease) HTN (hypertension) Mother CAD (coronary artery disease) H/O heart valve replacement with bioprosthetic valve HTN (hypertension) Diabetes Gastrointestinal malignancy Sister HTN (hypertension) Diabetes Atrial fibrillation Familial hyperlipidemia Social History Household Members: Family Household Members Other:: Sister Joanie Housing: Apartment Alcohol intake: never Patient Tobacco Use Status: Never used Tobacco e-Cigarette/Vaping Use: Never Used Second Hand Smoke Exposure: No service: No Current occupational status: disabled Cognitive needs: No Hearing needs: No Vision needs: No Physical Exam Vital Signs: Last Vital Signs Pulse 82 12/08/23 11:07 BP 120/70 12/08/23 11:07 BMI result Body Mass Index 23.3 Const Other: Absence of Cushingoid features. Absence of acromegalic features. Neck exam reveals nl size thyroid about 15 gms. No thyroid nodules palpable. No carotid bruits present. Lungs CTA. Heart S1 S2, Reg R/R. No M/R G. Skin exam reveals absence of vitiligo or acanthosis nigricans. No edema Extrem Other: Visual exam of foot performed. No ulcerations or open lesions. No inter digit maceration or fissuring. Nails thickened but not elongated. no callouses. Sensa tion intact to monofilament exam. Vibratory sensation is normal with 128 Hz tuning fork. Office Procedures Glucose Monitoring Details Details: see [facility] [id number] - Glucose monitoring, continuous-physician I&R Procedure code (CPT) selection complete Results Reviewed Results Reviewed: Laboratory Last Values Glucose (Clinic) 112 mg/dL (60-115) 12/08/23 11:43 11/04/21 03/17/22 07/03/22 10:34 10:08 15:13 Potassium Creatinine Estimated GFR Hgb A1c (Clinic) 6.7 H 5.8 6.2 H Calcium AST ALT Triglycerides Cholesterol LDL Cholesterol, Calc HDL Cholesterol 25-OH Vitamin D Total TSH Free T4 Urine Microalbumin 11/06/22 03/18/23 06/23/23 10:39 09:46 10:50 Potassium Creatinine Estimated GFR Hgb A1c (Clinic) 6.9 H Calcium AST ALT Triglycerides Cholesterol LDL Cholesterol, Calc HDL Cholesterol 25-OH Vitamin D Total 31.6 TSH Free T4 Urine Microalbumin 11.0 07/02/23 10/08/23 11/07/23 15:30 13:43 09:40 Potassium 3.9 Creatinine 0.79 Estimated GFR > 60 Hgb A1c (Clinic) 6.7 H 12.3 H Calcium 9.7 AST 21 ALT 19 Triglycerides 71 Cholesterol 143 LDL Cholesterol, Calc 85 HDL Cholesterol 44 25-OH Vitamin D Total TSH 2.47 Free T4 1.07 Urine Microalbumin Assessment & Plan Assessment & Plan (1) Diabetes mellitus: Code(s): E11.9 - Type 2 diabetes mellitus without complications Category: Medical Qualifiers: Diabetes mellitus type: type 2 Diabetes mellitus financial operations consultant insulin use: without correction use Diabetes mellitus complication status: without complication Qualified Code(s): E11.9 - Type 2 diabetes mellitus without complications Plan: 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 She is due for A1C 01/08/24. (2) Postoperative hypothyroidism: Code(s): E89.0 - Postprocedural hypothyroidism Category: Medical Plan: Clinically euthyroid and TSH in good range after near-total thyroidectomy recheck TSH in 3 months Orders: Orders Free T4 (Free Thyroxine) 12/08/23 E89.0 - Postprocedural hypothyroidism Thyroid Stimulating Hormone 12/08/23 E89.0 - Postprocedural hypothyroidism Microalbumin, Random (w Creat) 2 Months E11.9 - Type 2 diabetes mellitus without complications AMB Glucose Monitoring 12/09/23 E11.9 - Type 2 diabetes mellitus without complications Lipid Panel 2 Months E11.9 - Type 2 diabetes mellitus without complications Basic Metabolic Panel 2 Months E11.9 - Type 2 diabetes mellitus without complications Referrals Podiatry Referral E78.5 - Hyperlipidemia, unspecified Patient Instructions: The patient was counseled to always carry a source of sugar and on the rule of 15's: Take 3 glucose tablets and repeat again in 15 minutes if blood sugar is not in normal range. Continue to repeat every 15 minutes until blood sugar is normal. Coding Level of Care Code Est Pt Level 4 (03463) Complex EM visit Add On G2211 Diagnoses Type 2 diabetes mellitus without complication, without long-term current use of insulin E11.9 Diabetes mellitus type: type 2 Diabetes mellitus financial operations consultant insulin use: without correction use Diabetes mellitus complication status: without complication Postoperative hypothyroidism E89.0 CPT Codes Details - CPT: 51911 - Glucose monitoring, continuous-physician I&R ([id number]) Time Spent (min) 35 Comment Time spent reviewing labs/provider notes, glucose,sensor reports, face to face, chart doc
[2023-12-08 11:07] VITALS: BP 120/70; PULSE 82; BMI 23.3
[2023-12-08 12:00] LABS: Glucose, Whole Blood 112 mg/dL (60-115)
== END 2023-12-08 11:58 | disposition home or self-care (01) ==
PROVIDERS: PCP Internal Medicine; Visit Provider Nurse Practitioner Adult Health
DX: E11.9 Type 2 diabetes mellitus without complications (principal); E89.0 Postprocedural hypothyroidism
CPT/HCPCS: 95251; 99214; G2211

== ENCOUNTER 2023-12-08 10:47 | Outpatient (AMB) | payer OTHER, SELFPAY ==
--- NOTE | 2023-12-08 11:02 | A.OFFVIS_ITS ---
VS Expanded 12/08/23 11:03 Height 5 ft 1 in Weight 123 lb 7.342 oz BMI 23.3 Intake Visit Reasons: DM Allergies No Known Allergies Allergy (Verified 12/08/23 11:07) Nutrition Presentation Details: Pt presents for MNT f/u for T2DM Pt reports doing well, blood sugars ranging from 108-133 Pt reports working on including protein in the meals and starting to include fiber rich foods (veg, fruits) Has breakfast/lunch/dinner B: sandwich with egg /ham or ham/cheese, spinach, diet soda Snack: fruits: mixed fruits or apple Lunch : mixed vegetables, rice/chicken or potato and chicken dinner: wrap with chicken and spinach or tuna/cheese and spinach on a wrap snack: fruits and yogurt BS Monitoring Most Recent Diabetes Results: Microalb/Creat Ratio 4.2 ug/mg cr (<30) 11/07/23 Cholesterol 143 mg/dL (<200) 11/07/23 HDL Cholesterol 44 mg/dL (>40) 11/07/23 Triglycerides 71 mg/dL (<150) 11/07/23 Creatinine 0.79 mg/dL (0.5-1.4) 11/07/23 Blood Urea Nitrogen 23 mg/dL (9-16) H 11/07/23 Sodium 139 mmol/L (135-145) 11/07/23 Potassium 3.9 mmol/L (3.3-5.1) 11/07/23 Chloride 108 mmol/L (96-108) 11/07/23 Carbon Dioxide 21 mmol/L (22-29) L 11/07/23 Calcium 9.7 mg/dL (8.4-10.2) 11/07/23 AST 21 U/L (5-31) 11/07/23 ALT 19 U/L (0-31) 11/07/23 Total Protein 7.8 g/dL (6.5-8.0) 11/07/23 Albumin 3.9 g/dL (3.5-5.0) 11/07/23 [facility] Medical History Vitamin D deficiency Candidal intertrigo Physical exam Developmental delay, mild Thyroid nodule Non-toxic multinodular goiter Palpitations Goiter Overweight (BMI 25.0-29.9) Dyslipidemia Diabetes mellitus Essential hypertension Surgical History H/O thyroidectomy Family History Father CAD (coronary artery disease) HTN (hypertension) Mother CAD (coronary artery disease) H/O heart valve replacement with bioprosthetic valve HTN (hypertension) Diabetes Gastrointestinal malignancy Sister HTN (hypertension) Diabetes Atrial fibrillation Familial hyperlipidemia Social History Household Members: Family Household Members Other:: Sister Joanie Housing: Apartment Alcohol intake: never Patient Tobacco Use Status: Never used Tobacco e-Cigarette/Vaping Use: Never Used Second Hand Smoke Exposure: No service: No Current occupational status: disabled Cognitive needs: No Hearing needs: No Vision needs: No Assessment & Plan Assessment & Plan (1) Diabetes mellitus: Code(s): E11.9 - Type 2 diabetes mellitus without complications Category: Medical Qualifiers: Diabetes mellitus type: type 2 Diabetes mellitus termite treater helper insulin use: without termite treater helper use Diabetes mellitus complication status: without complication Qualified Code(s): E11.9 - Type 2 diabetes mellitus without complications Plan: Review healthy plate method, including calcium rich foods ? EST Kcal NEEDS as per 25 kcal/kg bw: : 1500 ? ? ? USED? WT :? 55 kg est protein needs as per 0.8-1.0 g/kg bw: 44-55 g/d est fluid needs as per 25 ml/kg bw:? 1386 ml/d? Plan Patient Instructions: Continue following healthy plate method Have water with meals or a cup of milk Coding Level of Care Code Nutr Indiv Subseq (48684) Diagnoses Type 2 diabetes mellitus without complication, without long-term current use of insulin E11.9 Diabetes mellitus type: type 2 Diabetes mellitus mcfp insulin use: without termite treater helper use Diabetes mellitus complication status: without complication Time Spent (min) 15
[2023-12-08 11:03] VITALS: BMI 23.3
== END 2023-12-08 11:16 | disposition home or self-care (01) ==
PROVIDERS: PCP Internal Medicine; Visit Provider Dietitian, Registered
DX: E11.9 Type 2 diabetes mellitus without complications (principal)

== ENCOUNTER → 2023-12-08 10:47 | Outpatient (BNVA) | payer OTHER, SELFPAY | PROVIDERS: PCP Internal Medicine; Visit Provider Dietitian, Registered | DX: E11.9 Type 2 diabetes mellitus without complications (principal) | CPT/HCPCS: 82947; 97803; 99212 ==

== ENCOUNTER 2024-02-01 09:47 | Outpatient (REF) | payer OTHER, SELFPAY ==
[2024-02-01 13:13] LABS: Creatinine Urine 159.76 mg/dL; Microalbum/Creatinine Ratio Ur 6.2 ug/mg cr (<30)
[2024-02-01 13:19] LABS: Anion Gap 12 (12-20); Blood Urea Nitrogen 32 mg/dL (9-16); Calcium 9.7 mg/dL (8.4-10.2); Carbon Dioxide 26 mmol/L (22-29); Chloride 108 mmol/L (96-108); Cholesterol 101 mg/dL (<200); Estimated Glomerular Filt Rate > 60; Glucose Random 114 mg/dL (60-115); HDL Cholesterol 41 mg/dL (>40); LDL Cholesterol Calculated 48 mg/dL (<100); Potassium 3.8 mmol/L (3.3-5.1); Sodium 142 mmol/L (135-145); Triglycerides 60 mg/dL (<150)
[2024-02-01 13:29] LABS: Free T4 (Free Thyroxine) 1.35 ng/dL (0.71-1.85); Thyroid Stimulating Hormone 1.75 uIU/mL (0.32-4.0)
== END 2024-02-01 09:48 | disposition home or self-care (01) ==
LOC: HO.LAB 09:47
PROVIDERS: Nurse Practitioner Adult Health; PCP Internal Medicine; Visit Provider Internal Medicine Endocrinology, Diabetes & Metabolism
DX: E89.0 Postprocedural hypothyroidism (principal); E11.9 Type 2 diabetes mellitus without complications
CPT/HCPCS: 36415; 80048; 80061; 82043; 82570; 84439; 84443; 99212

== ENCOUNTER 2024-02-01 09:47 | Outpatient (AMB) | payer OTHER, SELFPAY ==
--- NOTE | 2024-02-01 09:49 | A.OFFVIS_ITS ---
Vital Signs 02/01/24 09:52 Height 5 ft 1 in Weight 122 lb 2.177 oz BMI 23.1 BP 130/64 Blood Pressure Location Lt brachial Position Sitting Pulse 89 Pulse Source Pulse Oximeter Intake Visit Reasons: f/u post-operative hypothyroidism-conf Intake Note: Patient present today for post-operative Hypothyroidism follow up. Commercial Makeup Artist Required: Yes Commercial Makeup Artist Language: Speech Therapy Director Services: Commercial Makeup Artist Present Commercial Makeup Artist Name: Faith CMI Information Interpreted: non-clinical & clinical Accompanied by: Self / Same As Patient Allergies No Known Allergies Allergy (Verified 02/01/24 09:53) Medication List - Last Reconciled 02/01/24 by Ke Perez MD amlodipine 2.5 mg PO DAILY 90 days atorvastatin 80 mg PO BEDTIME 90 days blood pressure monitor As directed blood pressure test kit-medium (inControl Blood Pressure Monitor kit) As directed blood sugar diagnostic (FreeStyle Lite Strips) Use 1 test strip three times per day blood sugar diagnostic As directed blood-glucose meter (FreeStyle Lite Meter kit) As directed blood-glucose sensor (FreeStyle Raymond 3 Sensor device) As directed cetirizine (All Day Allergy (cetirizine)) 10 mg PO DAILY PRN 90 days ezetimibe 10 mg PO DAILY 90 days insulin degludec (Tresiba FlexTouch U-100 insulin) 10 units (0.1 mL) subcut QPM 30 days insulin lispro (Humalog KwikPen (U-100) Insulin) 4 units (0.04 mL) subcut BID 30 days lancets (FreeStyle Lancets) Use 1 lancet three times per day lancets As directed levothyroxine 88 mcg PO DAILY 30 days lisinopril 40 mg PO DAILY 90 days metoprolol succinate ER 25 mg PO DAILY nystatin 1 appl topical BID 2 weeks pen needle, diabetic (BD Ultra-Fine Dalia Pen Needle) As directed tid semaglutide (Ozempic) 2 mg (0.75 mL) subcut QWEEK HPI Comments Details: 63 YO Female with a PMHx of a NTMNG . Patient is status post completion thyroidectomy with benign pathology 4 weeks ago. She sees Debbie Acosta NP for her type 2 diabetes She has a longstanding history of a NTMNG and was previously followed by Dr. Sotelo. She underwent FNA biposy 05/24/[address] Sotelo of the following nodules with the following results: Left mid pole 3.4 cm thyroid nodule: benign (bethesda category II) Left lower pole 1.5 cm thyroid nodule: benign (bethesda category II) Right pole 4.1 cm thyroid nodule: atypia of undetermined significance (bethesda category III), affirma benign She opted to undergo surveillance for her right pole nodule with yearly US. She had a repeat thyroid US 11/29/2020 which revealed significant change of her right mid pole nodule. She then underwent FNA biopsy of this Right mid pole 4.6 cm thyroid nodule by me 06/20/2021, with benign cytology (bethesda category II). Her Right lower pole 1.0 cm thyroid nodule was found to be spongifirm, so no FNA biopsy was indicated. Repeat thyroid US 07/24/2022 reveals significant change in multiple nodules. She presents today to review these results. She denies any compressive symptoms. She reports feeling well and has no complaints. Thyroid US: 11/29/2020 Right Thyroid Lobe: 6.3 x 3.1 x 3.1 cm, volume 32.0 mL. Previously 5.8 x 2.5 x 3.1 cm, volume 23.5 mL. Parenchyma: The gland echotexture is heterogeneous. Thyroid vascularity is increased. Left Thyroid Lobe: 6.1 x 1.7 x 2.3 cm, volume 12.2 mL. Previously 5.7 x 1.8 x 1.9 cm, volume 10.2 mL. Parenchyma: The gland echotexture is heterogeneous. Thyroid vascularity is increased. Isthmus: 0.4 cm in maximum AP dimension. Previously 0.5 cm. Estimated total number of nodules greater than or equal to 1 cm: 4. Cad Technician nodules are described as follows: 1.? Location: Right mid. ?? ? Size: 4.6 x 3.3 x 3.0 cm, volume 24.0 mL. ?? ? Previously: 4.1 x 2.3 x 3.0 cm, volume 14.8 mL. ?? ? Nodule characteristics: ?? ? Composition: Solid/almost completely solid (2). ?? ? Echogenicity: Isoechoic (1). ?? ? Shape: Taller than wide (3). ?? ? Margins: Smooth (0). ?? ? Echogenic Foci: None (0).? ACR TI-RADS total points: 6 ?? ? ACR TI-RADS category: 4 ?? ? This appears increased in size. Differences in measurement may be due to interobserver variation of nodule margins. Additionally, measuring the nodule with a curved as opposed to linear transducer may be helpful. 2.? Location: Right mid. ?? ? Size: 0.6 x 0.7 x 0.9 cm, volume 0.2 mL. ?? ? Previously: 0.8 x 0.4 x 0.9 cm, volume 0.2 mL. ?? ? Nodule characteristics: ?? ? Composition: Cystic(0). ?? ? ACR TI-RADS total points: 0 ?? ? ACR TI-RADS category: 1 ? Significant change in size (>/= 20% in 2 dimensions and minimal increase of 2 mm or 50% or greater increase in volume): ?? ? Change in features: ?? ? Change in ACR TI-RADS risk category: 3.? Location: Right inferior. ?? ? Size: 1.0 x 0.6 x 0.8 cm, volume 0.2 mL. ?? ? Previously: 0.7 x 0.5 x 0.8 cm, volume 0.14 mL. ?? ? Nodule characteristics: ?? ? Composition: Cystic(0). ?? ? ACR TI-RADS total points: 0 ?? ? ACR TI-RADS category: 1 ? Significant change in size (>/= 20% in 2 dimensions and minimal increase of 2 mm or 50% or greater increase in volume): ?? ? Change in features: ?? ? Change in ACR TI-RADS risk category: 4.? Location: Left mid. ?? ? Size: 2.8 x 1.3 x 1.9 cm, volume 3.6 mL. ?? ? Previously: 3.4 x 1.4 x 1.8 cm, volume 4.5 mL. ?? ? Nodule characteristics: ?? ? Composition: Mixed cystic and solid (1). ?? ? Echogenicity: Isoechoic (1). ?? ? Shape: Not taller than wide (0). ?? ? Margins: Smooth (0). ?? ? Echogenic Foci: None (0).? ACR TI-RADS total points: 2 ?? ? ACR TI-RADS category: 2 ?? ? This is decreased in size and appears more solid and less cystic than on prior exam January 2020. This may be related to changes related to fine-needle aspiration April 2020. 5.? Location: Left inferior. ?? ? Size: 0.8 x 0.3 x 0.7 cm, volume 0.08 mL. ?? ? Previously: 1.5 x 0.6 x 0.9 cm, volume 0.4 mL. ?? ? Nodule characteristics: ?? ? Composition: Solid/almost completely solid (2). ?? ? Echogenicity: Isoechoic (1). ?? ? Shape: Not taller than wide (0). ?? ? Margins: Smooth (0). ?? ? Echogenic Foci: None (0). ? ACR TI-RADS total points: 3 ?? ? ACR TI-RADS category: 3 ? Significant change in size (>/= 20% in 2 dimensions and minimal increase of 2 mm or 50% or greater increase in volume): ?? ? Change in features: ?? ? Change in ACR TI-RADS risk category: NODES: No lymphadenopathy is seen in the tissue surrounding the thyroid gland. Labs: Laboratory Tests 07/24/22 15:42 25-OH Vitamin D Total 33.6 TSH 0.43 Free T4 0.96 underwent a total thyroidectomy in 08/2023. Started 88 ug of levothyroxine . Denies any symptoms of hypothyroidism or hyperthyroid [facility] Medical History Vitamin D deficiency Candidal intertrigo Physical exam Developmental delay, mild Thyroid nodule Non-toxic multinodular goiter Palpitations Goiter Overweight (BMI 25.0-29.9) Dyslipidemia Diabetes mellitus Essential hypertension Surgical History H/O thyroidectomy Family History Father CAD (coronary artery disease) HTN (hypertension) Mother CAD (coronary artery disease) H/O heart valve replacement with bioprosthetic valve HTN (hypertension) Diabetes Gastrointestinal malignancy Sister HTN (hypertension) Diabetes Atrial fibrillation Familial hyperlipidemia Social History Household Members: Family Household Members Other:: Sister Joanie Housing: Apartment Alcohol intake: never Patient Tobacco Use Status: Never used Tobacco e-Cigarette/Vaping Use: Never Used Second Hand Smoke Exposure: No service: No Current occupational status: disabled Cognitive needs: No Hearing needs: No Vision needs: No Assessment & Plan Assessment & Plan (1) Postoperative hypothyroidism: Code(s): E89.0 - Postprocedural hypothyroidism Category: Medical Plan: This 62-year-old female with a history of post-operative hypothyroidism status post total thyroidectomy He is currently replaced on 88 mcg levothyroxine. She appears to be clinically euthyroid Plan is to check a TSH and free T4 and adjust levothyroxine accordingly. She will follow-up with Debbie Acosta NP for her Type 2 DM Orders: Orders Free T4 (Free Thyroxine) Today E89.0 - Postprocedural hypothyroidism Thyroid Stimulating Hormone Today E89.0 - Postprocedural hypothyroidism Coding Level of Care Code Est Pt Level 3 (99569) Diagnoses Postoperative hypothyroidism E89.0
[2024-02-01 09:52] VITALS: BP 130/64; PULSE 89; BMI 23.1
== END 2024-02-01 10:13 | disposition home or self-care (01) ==
LOC: HO.ENCR 09:47
PROVIDERS: PCP Internal Medicine; Visit Provider Internal Medicine Endocrinology, Diabetes & Metabolism
DX: E89.0 Postprocedural hypothyroidism (principal)
CPT/HCPCS: 99213

== ENCOUNTER 2024-03-01 10:55 | Outpatient (AMB) | payer OTHER, SELFPAY ==
--- NOTE | 2024-03-01 10:56 | A.OFFVIS_ITS ---
Vital Signs 3 03/01/24 10:59 Height 5 ft 1 in Weight 119 lb 0.794 oz BMI 22.5 BP 116/70 Blood Pressure Location Rt brachial Position Sitting Pulse 74 Pulse Source Pulse Oximeter Intake Visit Reasons: f/u post-operative hypothyroidism,DM-lvm Intake Note: Patient presents today for a follow-up on Type 2 Diabetes Mellitus: Last Diabetic eye exam was on: Appt comining up this month Last Podiatry exam was on: Does not see a Cargo Surveyor Most recent HbA1c: 6.1%, 03/01/2024 Random Glucose- 101 mg/dL, Today L Diesel Engine Assembler Required: Yes Diesel Engine Assembler Language: Lead Developer Services: Diesel Engine Assembler Present Diesel Engine Assembler Name: Dianne #[id number] Information Interpreted: non-clinical & clinical Accompanied by: Self / Same As Patient Allergies No Known Allergies Allergy (Verified 02/01/24 09:53) HPI Comments Details: 63 year old with type 2 diabetes mellitus and postoperative hypothyroidism with history of NIFTP here today for follow up. Last DM visit with johnny jay 12/08/23 Last thyroid visit with Dr. Perez 02/01/24 Type 2 DM Interval history Doing well, no hospitalisations Previous treatment: actos, metformin She was recently changed from Lantus to low dose Tresiba in Nov 2023 and Humalog for glucose readings in the 250-300 range. daily glimepiride was discontinued. A1c was 12.3% on 10/08/23. a1c 6.4 % POC 03/01/24 Freestyle raymond sensor 3 average glucose: [122] 14 day continuous glucose sensor report reviewed Glucose Management indicator 6.2 % Time CGM active 90 % TIme in ranges: 0 % very high (above 250) 0 % high (181-250) 99 % in range (70-180] 1 % low (69-55) 0 % very low (below 54) [17.6% ] Glucose variability (target <36%) Interpretation of CGMS [mostly within target, she does have some episodes of hypoglycemia notably some around health sciences dean/lunchtime possibly as a result of the lispro] For the past 4 days not wearing the sensor, brought in glucometer which had readings of 134, 124, 160, 112, 140, 118, 103 , 129, 7 day average 123, Current Rx: Tresiba 10 units once in the morning Humalog 4 units for russ ,she takes it 15 mins before Ozempic 2mg weekly on Last Diabetic eye exam was on: Appt comining up this month Last Podiatry exam was on: Does not see a Cargo Surveyor Random Glucose- 101 mg/dL, Today Denies retinopathy Has eyes checked yearly , no retinopathy, has appointment this month Denies neuropathy, foot exam done 03/01/2024 intact sensation to monofilament, however very poor care for her nails. Nephropathy: on [NICK]. normal microalbumin creatinine Jan 2024 HLD on statin and Zetia Last LDL 48 as measured on Jan 2024 [Denies] CAD. Diet: Has met with research management associate. Eats a late breakfast around 11am 2 slice toast with pbj, small glass oj, supper 2 boiled eggs with veg Postoperative hypothyroidism NIFTP She has a longstanding history of a NTMNG She underwent FNA biposy 05/24/[address] Sotelo of the following nodules with the following results: Left mid pole 3.4 cm thyroid nodule: benign (bethesda category II) Left lower pole 1.5 cm thyroid nodule: benign (bethesda category II) Right pole 4.1 cm thyroid nodule: atypia of undetermined significance (bethesda category III), affirma benign She opted to undergo surveillance for her right pole nodule with yearly US. She had a repeat thyroid US 11/29/2020 which revealed significant change of her right mid pole nodule. She then underwent FNA biopsy of this Right mid pole 4.6 cm thyroid nodule by Dr. Savage 06/20/2021, with benign cytology (bethesda category II). Her Right lower pole 1.0 cm thyroid nodule was found to be spongifirm, so no FNA biopsy was indicated. Repeat thyroid US 07/24/2022 reveals significant change in multiple nodules. A repeat ultrasound was performed Oct 2022 to evaluate the thyroid gland. She was found to have multiple large nodules. Her right mid to lower pole nodule does extend substernally and she did exhibit a positive naheed sign from this. Recc total thyroidectomy. status post near total thyroidectomy August 2023 wimarissa Sexton. 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 She is currently replaced on 88 mcg levothyroxine. She appears to be clinically euthyroid. Most recent TSH TSH 1.75 on 02/20. Physical exam General: sitting comfortably in no acute distress HEENT: normocephalic/atraumatic, , moist oral mucosa Neck: supple, symmetrical, no palpbale masses , no dorsocervical or supraclavicular fat pads Cardiac: normal heart sounds Pulm: normal breath sounds B/L, no added breath sounds Abd: not distended, no tenderness Extremities: no edema, no signs of myxedema Neuro: AAO x3, Speech: normal, no facial droop, moving all 4 extremities Skin: no rash Foot exam: intact sensation to monofilament, intact pulses, intact vibration, poor nails care with overgrown tow nails ?? ? Laboratory Tests 07/02/23 10/08/23 02/01/24 15:30 13:43 10:49 Creatinine 0.75 Estimated GFR > 60 Random Glucose 114 Hgb A1c (Clinic) 6.7 H 12.3 H Triglycerides 60 Cholesterol 101 LDL Cholesterol, Calc 48 HDL Cholesterol 41 TSH 1.75 Free T4 1.35 Urine Creatinine Urine Microalbumin Microalb/Creat Ratio 02/01/24 10:50 Creatinine Estimated GFR Random Glucose Hgb A1c (Clinic) Triglycerides Cholesterol LDL Cholesterol, Calc HDL Cholesterol TSH Free T4 Urine Creatinine 159.76 Urine Microalbumin 10.0 Microalb/Creat Ratio 6.2 [facility] Medical History Vitamin D deficiency Candidal intertrigo Physical exam Developmental delay, mild Thyroid nodule Non-toxic multinodular goiter Palpitations Goiter Overweight (BMI 25.0-29.9) Dyslipidemia Diabetes mellitus Essential hypertension Surgical History H/O thyroidectomy Family History Father CAD (coronary artery disease) HTN (hypertension) Mother CAD (coronary artery disease) H/O heart valve replacement with bioprosthetic valve HTN (hypertension) Diabetes Gastrointestinal malignancy Sister HTN (hypertension) Diabetes Atrial fibrillation Familial hyperlipidemia Social History Household Members: Family Household Members Other:: Sister Joanie Housing: Apartment Alcohol intake: never Patient Tobacco Use Status: Never used Tobacco e-Cigarette/Vaping Use: Never Used Second Hand Smoke Exposure: No service: No Current occupational status: disabled Cognitive needs: No Hearing needs: No Vision needs: No Physical Exam Vital Signs: BMI result Body Mass Index 22.5 Office Procedures Glucose Monitoring Details Details: see [facility] [address] - Glucose monitoring, continuous-physician I&R Procedure code (CPT) selection complete Results AMB Hemoglobin A1c 2 AMB Hemoglobin A1c 6.4 % Last Edit by OSCAR Veloz on 03/01/24 11:15 Assessment & Plan Assessment & Plan (1) Postoperative hypothyroidism: Code(s): E89.0 - Postprocedural hypothyroidism Category: Medical Plan: Patient with a history of nontoxic multinodular goiter, with multiple benign FNA results of several nodules, was noted to have compressive symptoms and underwent total thyroidectomy August 2023 with pathology revealing 0.15 cm NIFTP in the left lobe. Clinically euthyroid and TSH in good range after near-total thyroidectomy , currently on levothyroxine 88 mcg daily. We reviewed : NIFTP: noninvasive follicular thyroid neoplasm with papillary-like nuclear features (NIFTP) NIFTP is a new nomenclature since 2017 and thus far it is considered to have indolent biological behavior, lack of metastasis or recurrence. While thyroid surgery is required to distinguish NIFTP from the encapsulated with invasive subtype, therapy beyond thyroid lobectomy is usually not required (ie, thyroid-stimulating hormone [TSH] suppression and radioactive iodine ablation is not required ? With respect to the follow?up intensity for patients subsequent to neoplasm with papillary like nuclear features (NIFTP) resection. NIFTP is understood as a premalignant lesion Usually we recommend that, until longer term experience with this new entity is gained, the patient should still be followed yearly with neck exam. One can also consider annual measurements of thyroglobulin (Tg) and occasional imaging by neck ultrasonography (US) [facility] are unclear about this as of yet. Plan : recheck TSH in 6 months Yearly neck exam, done today Continue levothyroxine 88 mcg daily (2) Diabetes mellitus: Code(s): E11.9 - Type 2 diabetes mellitus without complications Category: Medical Qualifiers: Diabetes mellitus type: type 2 Diabetes mellitus on line csr insulin use: without detention use Diabetes mellitus complication status: without complication Qualified Code(s): E11.9 - Type 2 diabetes mellitus without complications Plan: 63-year-old female with type 2 diabetes mellitus with long-term insulin use. She had worsened control over the earlier part of the this year and during summer her A1c was up to 12.3% in September 2023. Now after starting Ozempic and with modifications to her basal bolus regimen, A1c has come down to 6.4% today POC 03/01/2024. I reviewed her CGM data which shows some [facility] dean hypoglycemic episodes when she takes the lispro with her breakfast/brunch. We will deescalate her regimen to remove the lispro as she is barely on any dose with only 4 units with breakfast/brunch. She is only taking it with 1 meal a day. We will continue Tresiba and Ozempic as it is for now. If she needs further agents, can consider adding an SGLT2 inhibitor. Plan: -stop insulin lispro -continue insulin Tresiba 10 units daily -continue Ozempic 2 mg weekly -reapply the Raymond sensor with close monitoring of blood sugars, counseled patient about confirming hypoglycemic episodes with fingersticks and counseled regarding hypoglycemia treatment -she has poor foot care, foot exam done today, podiatry referral was oriented placed previously, I have given her the number to call and make an appointment -is due for eye appointment, no history of retinopathy, emphasized importance of annual eye exams -follow up in 3 months (3) Dyslipidemia: Code(s): E78.5 - Hyperlipidemia, unspecified Category: Medical Plan: LDL from January 2024 goal at 48. Goal is less than 70 mg/dL. Continue atorvastatin and Zetia. (4) Essential hypertension: Code(s): I10 - Essential (primary) hypertension Category: Medical Plan: Blood pressure at goal. Continue metoprolol, lisinopril. Plan I spent 30 minutes in reviewing the record, seeing the patient and documenting in the medical record. Orders: Orders 2 AMB Glucose Monitoring Today E11.9 - Type 2 diabetes mellitus without complications AMB Hemoglobin A1c Today E11.9 - Type 2 diabetes mellitus without complications Medications: Refilled 2 semaglutide (Ozempic) 2 mg (0.75 mL) subcut QWEEK 9 mL 3RF Discontinued 2 insulin lispro (Humalog KwikPen (U-100) Insulin) take with breakfast and supper Discontinued Reason: Patient Completed Course 4 units (0.04 mL) subcut BID 30 days 6 mL 11RF E11.9 - Type 2 diabetes mellitus without complications Patient Instructions: Continue levothyroxine 88 mcg daily Continue Ozempic 2 mg weekly Continue Insulin Tresiba 10 units daily STOP Insulin Lispro Follow up in 3 months see eye doctor Follow with Cele from nutrition See foot doctor Call to make an appointment to see foot doctor Rule of 15 Treatment for Hypoglycemia (Low blood sugar) If your blood glucose is low (70 and below)*, follow the steps below to treat: Eat or drink something from the list below equal to 15 grams of carbohydrate (carb). Rest for 15 minutes Re-check your blood glucose. If it is still low, (below 70), repeat step 1 above. ? If your next meal is more than an hour away, you will need to eat one carbohydrate choice as a snack to keep your blood glucose from going low again. ?If you can't figure out why you have low blood glucose, call your healthcare provider, as your medicine may need to be adjusted. ?Always carry something with you to treat an insulin reaction. Use food from the list below. ? Foods equal to One Carbohydrate Choice (15 grams of carbohydrate): 3 Glucose ?tablets or 4 Dextrose tablets 4 ounces of fruit juice 5-6 ounces (about 1/2 can) of regular soda such as Coke or Pepsi ? 7-8 gummy or regular Life Savers ? 1 Tbsp. of sugar or jelly NOTE: If your blood sugar is less than 50, double the portion above for a total of 30 gm. ?Carbohydrate. ? Follow meal plan of 45-60 g of consistent carbohydrates at 3 meals each day and 15 g of carbohydrate at 1-2 snacks each day. Continuar con levotiroxina 88 mcg al d?a. Continuar con Ozempic 2 mg semanales Continuar insulina Tresiba 10 unidades diarias Seguimiento en 3 meses. DETENER la insulina Lispro katrin al oftalm?logo Sigue con Cele desde nutrici?n Llame para programar milvia yumi para katrin al pod?logo. Farnaz de 15 Tratamiento para la hipoglucemia (nivel bajo de az?car en quentin) Si cheung nivel de glucosa en quentin es bajo (70 o menos)*, siga los pasos a continuaci?n para tratarlo: Coma o emmie algo de la lista a continuaci?n equivalente a 15 gramos de carbohidratos (carbohidratos). Descanse 15 minutos Vuelva a controlar cheung nivel de glucosa en quentin. Si a?n est? bajo (por debajo de 70), repita el paso 1 anterior. ? Si falta m?s de milvia hora para cheung pr?xima comida, necesitar? comer milvia opci?n de carbohidratos aissatou refrigerio para evitar que cheung nivel de glucosa en quentin vuelva a bajar. ?Si no puede entender por qu? tiene un nivel bajo de glucosa en quentin, llame a cheung proveedor de atenci?n m?dica, ya que es posible que sea necesario ajustar cheung medicamento. ?Lleve siempre consigo algo para tratar milvia reacci?n a la insulina. Utilice alimentos de la lista siguiente. ? Alimentos equivalentes a Milvia Elecci?n de Carbohidratos (15 gramos de carbohidratos): 3 tabletas de glucosa o 4 tabletas de dextrosa 4 onzas de jugo de frutas 5 a 6 onzas (aproximadamente 1/2 cesario) de refresco regular aissatou Coca-Cola o Pepsi ? 7-8 gomitas o salvavidas regulares ? 1 cucharada. de az?car o gelatina NOTA: Si cheung nivel de az?car en quentin es inferior a 50, duplique la porci?n anterior para un total de 30 g. ?Carbohidrato. ? Siga un plan de alimentaci?n de 45 a 60 g de carbohidratos constantes en 3 comidas al d?a y 15 g de carbohidratos en 1 a 2 refrigerios al d?a. Coding Level of Care Code Est Pt Level 4 (71457) Diagnoses Postoperative hypothyroidism E89.0 Type 2 diabetes mellitus without complication, without long-term current use of insulin E11.9 Diabetes mellitus type: type 2 Diabetes mellitus on line csr insulin use: without on line csr use Diabetes mellitus complication status: without complication Dyslipidemia E78.5 Essential hypertension I10 CPT Codes Details - CPT: 75533 - Glucose monitoring, continuous-physician I&R ([id number]) Time Spent (min) 30
[2024-03-01 10:59] VITALS: BP 116/70; PULSE 74; BMI 22.5
[2024-03-01 11:08] LABS: Glucose, Whole Blood 101 mg/dL (60-115)
== END 2024-03-01 11:50 | disposition home or self-care (01) ==
PROVIDERS: PCP Internal Medicine; Visit Provider Student in an Organized Health Care Education/Training Program
DX: E89.0 Postprocedural hypothyroidism (principal); E11.9 Type 2 diabetes mellitus without complications; E78.5 Hyperlipidemia, unspecified; I10 Essential (primary) hypertension
CPT/HCPCS: 95251; 99214

== ENCOUNTER → 2024-03-01 10:55 | Outpatient (BNVA) | payer OTHER, SELFPAY | PROVIDERS: PCP Internal Medicine; Visit Provider Student in an Organized Health Care Education/Training Program | DX: E11.9 Type 2 diabetes mellitus without complications (principal); E89.0 Postprocedural hypothyroidism; E78.5 Hyperlipidemia, unspecified; I10 Essential (primary) hypertension; Z79.4 Long term (current) use of insulin; Z79.899 Other long term (current) drug therapy | CPT/HCPCS: 82947; 83036; 99212 ==

== ENCOUNTER 2024-03-08 10:52 | Outpatient (AMB) | payer OTHER, SELFPAY ==
--- NOTE | 2024-03-08 10:56 | MHC.AMNUTRGE ---
VS Expanded 03/08/24 10:57 Height 5 ft 1 in Weight 117 lb 4.575 oz BMI 22.2 Intake Visit Reasons: T2DM Allergies No Known Allergies Allergy (Verified 02/01/24 09:53) Nutrition Presentation Details: Pt presents for MNT f/u for T2DM Pt reports having 3 meals/3 snacks as a routine B:a sandwich in AM (ham/cheese or eggs) , ice or crystal light lunch spinach tortilla with scrambled eggs with vegetables, yogurt or fruit snack apple with yogurt or crackers with butter r cheese as snack continues physically active: daily life activities takes a multivitamin BS Monitoring Most Recent Diabetes Results: Microalb/Creat Ratio 6.2 ug/mg cr (<30) 02/01/24 Cholesterol 101 mg/dL (<200) 02/01/24 HDL Cholesterol 41 mg/dL (>40) 02/01/24 Triglycerides 60 mg/dL (<150) 02/01/24 Creatinine 0.75 mg/dL (0.5-1.4) 02/01/24 Blood Urea Nitrogen 32 mg/dL (9-16) H 02/01/24 Sodium 142 mmol/L (135-145) 02/01/24 Potassium 3.8 mmol/L (3.3-5.1) 02/01/24 Chloride 108 mmol/L (96-108) 02/01/24 Carbon Dioxide 26 mmol/L (22-29) 02/01/24 Calcium 9.7 mg/dL (8.4-10.2) 02/01/24 PENDING SALE TO [facility] Medical History Vitamin D deficiency Candidal intertrigo Physical exam Developmental delay, mild Thyroid nodule Non-toxic multinodular goiter Palpitations Goiter Overweight (BMI 25.0-29.9) Dyslipidemia Diabetes mellitus Essential hypertension Surgical History H/O thyroidectomy Family History Father CAD (coronary artery disease) HTN (hypertension) Mother CAD (coronary artery disease) H/O heart valve replacement with bioprosthetic valve HTN (hypertension) Diabetes Gastrointestinal malignancy Sister HTN (hypertension) Diabetes Atrial fibrillation Familial hyperlipidemia Social History Household Members: Family Household Members Other:: Sister Joanie Housing: Apartment Alcohol intake: never Patient Tobacco Use Status: Never used Tobacco e-Cigarette/Vaping Use: Never Used Second Hand Smoke Exposure: No service: No Current occupational status: disabled Cognitive needs: No Hearing needs: No Vision needs: No Assessment & Plan Assessment & Plan (1) Diabetes mellitus: Code(s): E11.9 - Type 2 diabetes mellitus without complications Category: Medical Qualifiers: Diabetes mellitus type: type 2 Diabetes mellitus group home insulin use: without group home use Diabetes mellitus complication status: without complication Qualified Code(s): E11.9 - Type 2 diabetes mellitus without complications Plan: Review healthy plate method, including calcium rich foods ? EST Kcal NEEDS as per 25 kcal/kg bw: : 1500 ? ? ? USED? WT :? 55 kg est protein needs as per 0.8-1.0 g/kg bw: 44-55 g/d est fluid needs as per 25 ml/kg bw:? 1386 ml/d? 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
[2024-03-08 10:57] VITALS: BMI 22.2
== END 2024-03-08 12:33 | disposition home or self-care (01) ==
PROVIDERS: PCP Internal Medicine; Visit Provider Dietitian, Registered
DX: E11.9 Type 2 diabetes mellitus without complications (principal)

== ENCOUNTER → 2024-03-08 10:52 | Outpatient (BNVA) | payer OTHER, SELFPAY | PROVIDERS: PCP Internal Medicine; Visit Provider Dietitian, Registered | DX: E11.9 Type 2 diabetes mellitus without complications (principal) | CPT/HCPCS: 97803 ==

== ENCOUNTER 2024-03-19 10:38 | Outpatient (REF) | payer OTHER, SELFPAY | END 2024-03-19 10:39 | disposition home or self-care (01) | LOC: HO.MAMMO 10:38 | PROVIDERS: PCP Internal Medicine; Visit Provider Internal Medicine | DX: Z12.31 Encounter for screening mammogram for malignant neoplasm of breast (principal) | CPT/HCPCS: 77063; 77067 ==

== ENCOUNTER → 2024-03-19 10:45 | Outpatient (BNV) | payer OTHER, SELFPAY | PROVIDERS: PCP Internal Medicine; Visit Provider Internal Medicine | DX: Z12.31 Encounter for screening mammogram for malignant neoplasm of breast (principal) | CPT/HCPCS: 77063; 77067 ==

== ENCOUNTER 2024-04-18 09:59 | Outpatient (AMB) | payer OTHER, SELFPAY ==
--- NOTE | 2024-04-18 10:10 | MHC.PC.OV ---
Vital Signs 04/18/24 10:20 Height 5 ft 1 in Weight 120 lb BMI 22.7 BP 118/70 Blood Pressure Location Lt brachial Position Sitting Intake Visit Reasons: dm Intake Note: Patient here for a follow up DM School Administrator Required: Yes School Administrator Language: Template Worker Name: Faith Ny MD Information Interpreted: non-clinical & clinical Accompanied by: Self / Same As Patient Allergies No Known Allergies Allergy (Verified 04/18/24 10:24) Medication List - Last Reconciled 04/18/24 by Faith Ny MD amlodipine 2.5 mg PO DAILY 90 days atorvastatin 80 mg PO BEDTIME 90 days bisacodyl (Dulcolax (bisacodyl)) 20 mg (4 x 5 mg) PO ONCE 1 day blood pressure monitor As directed blood pressure test kit-medium (inControl Blood Pressure Monitor kit) As directed blood sugar diagnostic (FreeStyle Lite Strips) Use 1 test strip three times per day blood sugar diagnostic As directed blood-glucose meter (FreeStyle Lite Meter kit) As directed blood-glucose sensor (FreeStyle Raymond 3 Sensor device) As directed cetirizine (All Day Allergy (cetirizine)) 10 mg PO DAILY PRN 90 days ezetimibe 10 mg PO DAILY 90 days insulin degludec (Tresiba FlexTouch U-100 insulin) 10 units (0.1 mL) subcut QPM 30 days lancets (FreeStyle Lancets) Use 1 lancet three times per day lancets As directed levothyroxine 88 mcg PO DAILY 30 days lisinopril 40 mg PO DAILY 90 days metoprolol succinate ER 25 mg PO DAILY nystatin 1 appl topical BID 2 weeks pen needle, diabetic (BD Ultra-Fine Dalia Pen Needle) As directed tid polyethylene glycol 3350 (Miralax) 238 grams PO ONCE 1 day semaglutide (Ozempic) 2 mg (0.75 mL) subcut QWEEK Tobacco use date assessed: 04/18/24 Dental Screening Dental Screen Date: 04/18/24 Did you have a dental visit in the last 12 months?: No Did you have a dental problem in the last 6 months where you did not have access to dental care?: No Was dental information given to patient?: Patient has dentist HPI HPI Comments History of Present Illness Details The patient is a 63-year-old female presenting with routine chronic disease management. She has a history of Type 2 Diabetes Mellitus, currently managed with Tresiba and Ozempic. Her diabetes has reportedly been well-controlled, with a Hemoglobin A1c of 6.4 last month, indicating good glycemic management. She also reports using antihypertensive medications, including Amlodipine 2.5 mg, which she states is effectively managing her blood pressure. Additionally, she is on Atorvastatin 80 mg for hyperlipidemia, which is reportedly maintaining her LDL cholesterol within target. For hypothyroidism, she takes Levothyroxine 88 mcg, and her last thyroid function tests were within normal limits. The patient denies any current issues with chest pain, fever, cough, or reaction to medications and has reported good tolerance to her prescribed pharmaceutical regimen. [facility] Medical History Vitamin D deficiency Candidal intertrigo Physical exam Developmental delay, mild Thyroid nodule Non-toxic multinodular goiter Palpitations Goiter Overweight (BMI 25.0-29.9) Dyslipidemia Diabetes mellitus Essential hypertension Surgical History H/O thyroidectomy Family History Father CAD (coronary artery disease) HTN (hypertension) Mother CAD (coronary artery disease) H/O heart valve replacement with bioprosthetic valve HTN (hypertension) Diabetes Gastrointestinal malignancy Sister HTN (hypertension) Diabetes Atrial fibrillation Familial hyperlipidemia Social History Household Members: Family Household Members Other:: Sister Joanie Housing: Apartment Alcohol intake: never Patient Tobacco Use Status: Never used Tobacco e-Cigarette/Vaping Use: Never Used Second Hand Smoke Exposure: No service: No Current occupational status: disabled Cognitive needs: No Hearing needs: No Vision needs: No Questionnaire PHQ-9 Over the last 2 weeks, how often have you been bothered by any of the following problems? 1. Little interest or pleasure in doing things: not at all 2. Feeling down, depressed, or hopeless: not at all 3. Trouble falling or staying asleep, or sleeping too much: not at all 4. Feeling tired or having little energy: not at all 5. Poor appetite or overeating: not at all 6. Feeling bad about yourself - or that you are a failure or have let yourself or your family down: not at all 7. Trouble concentrating on things, such as reading the newspaper or watching television: not at all 8. Moving or speaking so slowly that other people could have noticed. Or the opposite - being so fidgety or restless that you have been moving around a lot more than usual: not at all 9. Thoughts that you would be better off or of hurting yourself in some way: not at all Total score: 0 Depression Screening Interpretation: Negative Depression Screening Done: Yes 89664 - PHQ-9 Billing: Yes Source: Developed by Drs. Ke Gamble, Lina Acosta, Harshad Perez and colleagues, with an educational dallin from [employer]. Thrive Questionnaire Date Thrive assessed: 04/18/24 I am a: Patient What is your living situation today?: I have a steady place to live Within the past 12 months, did the food you bought not last and you didn't have the money to get more?: Never true Within the past 12 months, did you worry whether your food would run out before you got money to buy more?: Never true Do you have trouble paying for medicines?: No Do you have trouble getting transportation to medical appointments?: No Do you have trouble paying your heating and electricity bill?: No Do you have trouble taking care of your child, family member or friend?: No Do you have trouble with day-to-day activities such as bathing, preparing meals, shopping, managing finances, etc.?: No Are you currently unemployed and looking for a job?: No Are you interested in more education?: No Please select the resources that you would like help with: None Currently or been in a relationship where the following occur: No concerns reported THRIVE Score: 0 AUDIT C Alcohol Use Questionnaire (AUDIT-C) 1. How often do you have a drink containing alcohol?: Never Total Score: 0 Score Reviewed/Action Taken: No ANGELA-7 AMB Questionnaire ANGELA-7 Date ANGELA - 7 assessed: 04/18/24 Feeling nervous, anxious, or on edge: 0 = Not at all Not being able to stop or control worryin = Not at all Worrying too much about different things: 0 = Not at all Trouble relaxin = Not at all Being so restless that it is hard to sit still: 0 = Not at all Becoming easily annoyed or irritable: 0 = Not at all Feeling afraid as if something awful might happen: 0 = Not at all Total ANGELA-7 score (0-4 normal; 5-9 mild; 10-14 moderate; 15-21 severe): 0 Source: Developed by Drs. Ke Gamble, Lina Acosta, Harshad Perez and colleagues, with an educational dallin from [employer]. ANGELA-7 Assessment Billing ANGELA-7 Assessment Tool: ANGELA-7 Assessment 51622 Review of Systems Const All systems reviewed & are unremarkable except as noted in HPI and below Card Denies chest pain at rest, Denies chest pain with activity, Denies edema, Denies irregular heart rhythm, Denies claudication, Denies dyspnea, Denies dyspnea on exertion, Denies orthopnea, Denies paroxysmal nocturnal dyspnea and Denies slow heart rate Resp Denies cough, Denies dyspnea and Denies dyspnea on exertion GI Denies abdominal pain, Denies change in bowel habits, Denies excessive flatus, Denies nausea and Denies vomiting Physical exam (Primary Care) Vital Signs: Last Vital Signs BP 118/70 04/18/24 10:20 BMI result Body Mass Index 22.7 Tobacco/Smoking Status: Tobacco use Status Tobacco use date assessed 04/18/24 04/18/24 10:16 Patient Tobacco Use Status Never used Tobacco 04/18/24 10:16 e-Cigarette/Vaping Use Never Used 04/18/24 10:16 PHQ-9: PHQ-9 Score PHQ-9: Total score 0 04/18/24 10:25 Depression Screening Interpretation: Negative Thrive Assessment: Date of Thrive Assessment Date Thrive assessed 04/18/24 04/18/24 10:16 Currently or been in a relationship where the following occur: No concerns reported Resp Effort & Inspection: normal respiratory effort Auscultation: clear to auscultation bilaterally Cardio Jugular venous distension: no JVD Rate: regular rate Rhythm: regular rhythm Heart sounds: S1 normal heart sound present and S2 normal heart sound present Extrem General: Yes full ROM Immunizations Fluarix Triv [id number] (PF) 45 mcg (15 mcg x 3)/0.5 mL IM syringe Performing Provider: Faith Ny MD Performing Location: [facility] [place] [facility] Documented (not given) by: OSCAR Duggan on 04/18/24 10:36 Reason Not Given: Patient Refused Boostrix Tdap 2.5 Lf unit-8 mcg-5 Lf/0.5 mL intramuscular syringe Performing Provider: Faith Ny MD Performing Location: [facility] [place] [facility] Administered by: OSCAR Duggan on 04/18/24 10:36 Dose Route Admin Location Dispensed Lot Number Expiration Date NDC Freight Rate Clerk 0.5 mL IM Left Deltoid 0.5 mL [id number] 06/15/26 [id number] [employer] VIS Given Date VIS Provided VIS Publication Date 04/18/24 Single Vaccine 20 Eligibility Eligibility Date Funding Source Not [facility] Eligible 04/18/24 Private Coding Level of Care Code Est Pt Level 4 (37318) Complex EM visit Add On G2211 Diagnoses Type 2 diabetes mellitus without complication, without long-term current use of insulin E11.9 Diabetes mellitus complication status: without complication Diabetes mellitus 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: without sponge clipper use Diabetes mellitus type: type 2 Essential hypertension I10 Dyslipidemia E78.5 Postoperative hypothyroidism E89.0 Additional Codes PHQ-9 - 81822 - PHQ-9 Billing: Yes ([id number]) ANGELA-7 Assessment Billing - ANGELA-7 Assessment Tool: ANGELA-7 Assessment 60008 ([id number]) Time Spent (min) 24 Assessment & Plan Assessment & Plan (1) Diabetes mellitus: Code(s): E11.9 - Type 2 diabetes mellitus without complications Category: Medical Qualifiers: Diabetes mellitus complication status: without complication Diabetes mellitus [facility] insulin use: without [facility] use Diabetes mellitus type: type 2 Qualified Code(s): E11.9 - Type 2 diabetes mellitus without complications (2) Essential hypertension: Code(s): I10 - Essential (primary) hypertension Category: Medical (3) Dyslipidemia: Code(s): E78.5 - Hyperlipidemia, unspecified Category: Medical (4) Postoperative hypothyroidism: Code(s): E89.0 - Postprocedural hypothyroidism Category: Medical Plan - Continue Tresiba and Ozempic for management of Type 2 Diabetes Mellitus, follow-up labs to be conducted in June. - Maintain current antihypertensive regimen with Amlodipine. - Continue Atorvastatin 80 mg for lipid control. - Continue current dose of Levothyroxine for hypothyroidism management. - Perform routine blood tests while fasting, as scheduled. Patient was informed and verbally consented to the use of an ambient scribe for clinic note documentation during this visit. During the visit, I discussed the importance of maintaining medication adherence for her chronic conditions, including Type 2 Diabetes, Hypertension, and Hyperlipidemia. We reviewed her current medications and their effectiveness, emphasizing the need for regular monitoring and blood tests. I informed the patient about the side effects and potential symptoms to monitor with her therapies. The patient expressed understanding and reported no adverse reactions or allergies to her current medication regimen. We also highlighted the importance of continuing with her current lifestyle modifications, and I reassured her that her conditions were well-managed based on recent laboratory results. Follow-up lab tests were planned for June to continue monitoring her health outcomes. Orders: Orders Lipid Panel 3 Months E78.5 - Hyperlipidemia, unspecified Vitamin D 25-OH Total 3 Months E55.9 - Vitamin D deficiency, unspecified Comprehensive Alexander. Panel Fast 3 Months E11.9 - Type 2 diabetes mellitus without complications Thyroid Stimulating Hormone 3 Months E89.0 - Postprocedural hypothyroidism Microalbumin, Random (w Creat) 3 Months R80.9 - Proteinuria, unspecified Influenza [id number] Immunization Today Z23 - Encounter for immunization TDaP Immunization Today Z23 - Encounter for immunization Medications: New Boostrix Tdap (diphth,pertus(acell),tetanus) 0.5 mL IM ONCE 0.5 mL 0RF NS Z23 - Encounter for immunization Fluarix Triv [id number] (PF) (flu vacc [id number] 6mos up(PF)) 0.5 mL IM ONCE 0.5 mL 0RF NS Z23 - Encounter for immunization Patient Instructions: - Continue all current medications as prescribed. - Attend the scheduled laboratory tests in June. - Monitor for any new symptoms or adverse reactions. - Maintain a healthy lifestyle including diet and exercise. - Report any new or worsening symptoms promptly.
[2024-04-18 10:20] VITALS: BP 118/70; BMI 22.7
== END 2024-04-18 10:36 | disposition home or self-care (01) ==
PROVIDERS: PCP Internal Medicine; Visit Provider Internal Medicine
DX: E11.9 Type 2 diabetes mellitus without complications (principal); I10 Essential (primary) hypertension; E78.5 Hyperlipidemia, unspecified; E89.0 Postprocedural hypothyroidism; Z23 Encounter for immunization

== ENCOUNTER → 2024-04-18 09:59 | Outpatient (BNVA) | payer OTHER, SELFPAY | PROVIDERS: PCP Internal Medicine; Visit Provider Internal Medicine | DX: E78.5 Hyperlipidemia, unspecified (principal); I10 Essential (primary) hypertension; E89.0 Postprocedural hypothyroidism | CPT/HCPCS: 90471; 90715; 96127; 99212 ==

== ENCOUNTER 2024-04-22 07:41 | Day surgery (SDC) | payer OTHER, SELFPAY ==
--- NOTE | 2024-04-21 10:53 | HO.ANESPROP2 ---
Documented by User: Odalis Thornton NP 04/21/24 10:53 HPI - Anesthesia Eval Consult details Narrative: 63yo F for Colonoscopy Anesthesia Pre-Procedure Meds Is the patient on any of the following meds?: GLP1/DPP4 PMFSH Active Problems Active Problems: All Active Problems Halitosis (Acute) Postoperative hypothyroidism (Acute) Cough (Acute) Vitamin D deficiency (Acute) Candidal intertrigo (Acute) Physical exam (Acute) Diverticulosis of colon (Acute) Tubular adenoma (Acute) Encounter for screening colonoscopy (Acute) Developmental delay, mild (Acute) Thyroid nodule (Acute) Encounter for screening colonoscopy (Acute) Palpitations (Acute) Palpitations (Acute) Goiter (Acute) Overweight (BMI 25.0-29.9) (Acute) Dyslipidemia (Acute) Diabetes mellitus (Acute) Essential hypertension (Acute) Past Medical History Medical History Vitamin D deficiency Candidal intertrigo Physical exam Developmental delay, mild Thyroid nodule Non-toxic multinodular goiter Palpitations Goiter Overweight (BMI 25.0-29.9) Dyslipidemia Diabetes mellitus Essential hypertension Family History Family History Father CAD (coronary artery disease) HTN (hypertension) Mother CAD (coronary artery disease) H/O heart valve replacement with bioprosthetic valve HTN (hypertension) Diabetes Gastrointestinal malignancy Sister HTN (hypertension) Diabetes Atrial fibrillation Familial hyperlipidemia Surgical History Surgical History (Updated 04/22/24 @ 08:18 by Audrey Perez RN) Hx of colonoscopy H/O thyroidectomy Social History Social History Household Members: Family Household Members Other:: sister Housing: Apartment Housing Other:: duplex Are you a primary pharmacy customer care specialist to a significant other at home: No Do you presently have visiting nurse or other home services: No Alcohol intake: never Patient Tobacco Use Status: Never used Tobacco e-Cigarette/Vaping Use: Never Used Second Hand Smoke Exposure: No Have you been hit, kicked, punched, or otherwise hurt by someone within the past year? If so, by whom?: No Are you DNR?: No Advance Directives: No Advance Directives Information Provided: Yes Recently lost weight without trying: No Nutrition Risks: No Nutritional Risk service: No Current occupational status: disabled Cognitive needs: No Hearing needs: No Vision needs: No Meds Allergies Allergy/AdvReac Type Severity Reaction Status Date / Time No Known Allergies Allergy Verified 04/22/24 08:18 Home Medications ?Medication ?Instructions ?Recorded ?Confirmed ?Last Taken ?Type blood sugar diagnostic #10 ea 01/25/20 04/22/24 Unknown History lancets 28 gauge #100 ea 01/25/20 04/22/24 Unknown History Assessment and Plan Assessment Anesthesia Assessment: Chart Reviewed Documented by User: Cecilia Renae MD 04/22/24 08:30 PMFSH Past Medical History Medical History Vitamin D deficiency Candidal intertrigo Physical exam Developmental delay, mild Thyroid nodule Non-toxic multinodular goiter Palpitations Goiter Overweight (BMI 25.0-29.9) Dyslipidemia Diabetes mellitus Essential hypertension Family History Family History Father CAD (coronary artery disease) HTN (hypertension) Mother CAD (coronary artery disease) H/O heart valve replacement with bioprosthetic valve HTN (hypertension) Diabetes Gastrointestinal malignancy Sister HTN (hypertension) Diabetes Atrial fibrillation Familial hyperlipidemia Family history of problems with anesthesia: No Surgical History Surgical History (Updated 04/22/24 @ 08:18 by Audrey Perez RN) Hx of colonoscopy H/O thyroidectomy History of Problems with Anesthesia: No Social History Social History Household Members: Family Household Members Other:: sister Housing: Apartment Housing Other:: duplex Are you a primary pharmacy customer care specialist to a significant other at home: No Do you presently have visiting nurse or other home services: No Alcohol intake: never Patient Tobacco Use Status: Never used Tobacco e-Cigarette/Vaping Use: Never Used Second Hand Smoke Exposure: No Have you been hit, kicked, punched, or otherwise hurt by someone within the past year? If so, by whom?: No Are you DNR?: No Advance Directives: No Advance Directives Information Provided: Yes Recently lost weight without trying: No Nutrition Risks: No Nutritional Risk service: No Current occupational status: disabled Cognitive needs: No Hearing needs: No Vision needs: No Meds Allergies Allergy/AdvReac Type Severity Reaction Status Date / Time No Known Allergies Allergy Verified 04/22/24 08:18 Home Medications ?Medication ?Instructions ?Recorded ?Confirmed ?Last Taken ?Type blood sugar diagnostic #10 ea 01/25/20 04/22/24 Unknown History lancets 28 gauge #100 ea 01/25/20 04/22/24 Unknown History Exam Airway Mallampati Class: II TM Dist: >3cm Neck ROM: Full Heart: rrr Lungs: cta Assessment and Plan Assessment Anesthesia Assessment: Anesthesia Plan Discussed Final Anesthetic Review Family History of Problems with Anesthesia: No History of Problems with Anesthesia: No NPO: Yes ASA Class: II Final Preanesthetic Review: No Changes in Pt Med Stat, Meds/Allgs Chart Reviewed and Consent Obtained/Reviewed Patient Risk: Low Procedure Risk: Low Anesthetic Plan Anesthetic Plan: MAC: Disposition: Standard PACU
[2024-04-22 07:52] VITALS: BMI 21.5
[2024-04-22] MEDS: Lactated Ringers 1,000 ML 100 ML IVCONT (08:04)
[2024-04-22 08:16] VITALS: BP 140/64; PULSE 92; RESP 18; TEMP 36.7; O2SAT 100
--- NOTE | 2024-04-22 08:31 | MHC.SHP ---
Pre-Procedural Eval Section A - 24 Hr Update-Section A only Date of Service: 04/22/24 The patient is an INPATIENT: No The patient has been examined within 24 hours of the surgical procedure. The History & Physical has been completed within 30 days and I have reviewed it.: No Section B - Complete if H&P > 30 days Chief Complaint: Surveillance for colon polyps Relevant Family History (Specify if Yes): Yes Relevant Social History: None Present Medications: see Short Stay Collaborative assessment Medical History: Significant History (Developmental delay, mild Diabetes mellitus Dyslipidemia Essential hypertension Goiter Non-toxic multinodular goiter Overweight (BMI 25.0-29.9) Palpitations Thyroid nodule) History of Previous Operations: Relevant previous surgery/procedure and date(s) (History of colonoscopy) Allergies: Allergies Allergy/AdvReac Type Severity Reaction Status Date / Time No Known Allergies Allergy Verified 04/22/24 08:18 Review of Systems Sugical H&P ROS: Negative: Constitution, Cardiovascular, Respiratory and Gastrointestinal Exam Surgical H&P Exam: Normal: Heart, Normal: Lungs, Normal: Extremities and Normal: Abdomen Plan Diagnosis/Plan: Unchanged I have reviewed the history and physical and performed a pertinent physical examination on my patient. No changes have occurred unless specified. Time Spent With Patient Time: Total time managing care of this patient today ____ minutes.
[2024-04-22 08:38] LABS: Glucose, Whole Blood 126 mg/dL (60-115)
--- NOTE | 2024-04-22 09:24 | P.OPN-COLO_ITS ---
Colonoscopy Operative Note Operative Note Date of Service: 04/22/24 Narrative: COLONOSCOPY TILL CECUM Pre-op diagnosis: Surveillance for colon polyps. Post-op diagnosis:? Diverticulosis, hemorrhoids Endoscopist:? Angel Cabrales MD Anesthesia:?MAC Consent: Indications for the procedure and potential complications of bleeding, perforation, reaction to medications and missed diagnosis were discussed with the patient and informed consent was obtained. Instrument: Olympus PCF H 190 L variable stiffness pediatric colonoscope Monitoring: Vital signs and clinical assessment, intermittent blood pressure monitoring, continuous EKG monitoring, Pulse oximetry and Carbon Dioxide monitoring were done throughout the procedure. Please see anesthesia flowsheet. Colon withdrawl time was 15 minutes. Procedure: The patient was placed in the left lateral decubitis position and pre-procedure medications were administered. After a digital rectal examination of the ano-rectum, the video colonoscope was inserted into the rectum and advanced through the colon to the cecum. The colonoscope was slowly withdrawn in a retrograde panoramic fashion and the colon mucosa was carefully examined including a retroflexed view of the rectum. Findings and interventions are described below. Procedure Difficulty: without difficulty Findings: Terminal Ileum: Not evaluated Cecum: Normal Ascending Colon: Moderate diverticulosis throughout the entire colon Transverse Colon: Moderate diverticulosis throughout the entire colon Descending Colon: Moderate diverticulosis throughout the entire colon Sigmoid Colon: Moderate diverticulosis Rectum: Normal Ano-rectum: Small internal hemorrhoids Colon preparation: Good after copious irrigation. [place] Bowel Preparation Scale Right colon; 2 Transverse colon: 2 Left colon; 2 (0 = Unprepared colon segment with mucosa not seen due to solid stool that cannot be cleared. 1 = Portion of mucosa of the colon segment seen, but other areas of the colon segment not well seen due to staining, residual stool and/or opaque liquid. 2 = Minor amount of residual staining, small fragments of stool and/or opaque liquid, but mucosa of colon segment seen well. 3 = Entire mucosa of colon segment seen well with no residual staining, small fragments of stool or opaque liquid) Impression and Post Procedure Diagnosis: Colonoscopy Findings: No polyps were detected Moderate diverticulosis seen in the entire colon small hemorrhoids on retroflexed exam. Plan: Repeat Colonoscopy in 5 years due to a history of adenomatous colon polyps. Above findings were reviewed with the patient and relevant handouts were given and the discharge area. Patient was placed on the colonoscopy recall list for repeat colonoscopy in 5 years.
[2024-04-22 09:26] VITALS: BP 92/42; PULSE 74; RESP 16; TEMP 36.6; O2SAT 100
[2024-04-22 09:41] VITALS: BP 109/53; PULSE 70; RESP 16; O2SAT 100
[2024-04-22 09:55] VITALS: BP 101/50; PULSE 69; RESP 16; TEMP 36.7; O2SAT 100
== END 2024-04-22 10:54 | disposition home or self-care (01) ==
PROVIDERS: PCP Internal Medicine; Visit Provider Internal Medicine Gastroenterology
PROC: 0DJD8ZZ Inspection of Lower Intestinal Tract, Via Natural or Artificial Opening Endoscopic (ICD-10-PCS; CPT 45378; principal; 2024-04-22 08:30)
DX: Z12.11 Encounter for screening for malignant neoplasm of colon (principal); K57.30 Diverticulosis of large intestine without perforation or abscess without bleeding; K64.8 Other hemorrhoids; Z86.0101 Personal history of adenomatous and serrated colon polyps; E11.9 Type 2 diabetes mellitus without complications; I10 Essential (primary) hypertension; E78.5 Hyperlipidemia, unspecified; Z79.02 Long term (current) use of antithrombotics/antiplatelets; Z79.85 Long-term (current) use of injectable non-insulin antidiabetic drugs; Z79.899 Other long term (current) drug therapy
CPT/HCPCS: 45378; 82947; J2003; J2704

== ENCOUNTER → 2024-04-22 07:41 | Outpatient (BNV) | payer OTHER, SELFPAY | PROVIDERS: PCP Internal Medicine; Visit Provider Internal Medicine Gastroenterology | DX: Z12.11 Encounter for screening for malignant neoplasm of colon (principal); Z86.0100 Personal history of colon polyps, unspecified; K57.90 Diverticulosis of intestine, part unspecified, without perforation or abscess without bleeding; K64.8 Other hemorrhoids | CPT/HCPCS: 45378 ==

== ENCOUNTER 2024-04-30 11:39 | Outpatient (AMB) | payer OTHER, SELFPAY ==
[2024-04-30 11:41] VITALS: BP 138/80; PULSE 83; TEMP 37; O2SAT 98
--- NOTE | 2024-04-30 11:41 | MHC.OFFWIV ---
Intake Vital Signs 04/30/24 11:41 Height 5 ft 2 in BMI Reason not done Patient refused/unable BP 138/80 Blood Pressure Location Rt brachial Position Sitting Pulse 83 Pulse Source Pulse Oximeter Temp 98.6 F Temp Source Oral Pulse Oximetry (%) 98 Intake Visit Reasons: EP- Cough, body ache Intake Note: pt is here for cough, body ache Patient Tobacco Use Status: Never used Tobacco Allergies No Known Allergies Allergy (Verified 04/30/24 11:49) Medication List - Last Reconciled 04/30/24 by Yoselyn Whittington, QUALITY MANAGEMENT NURSE- amlodipine 2.5 mg PO DAILY 90 days atorvastatin 80 mg PO BEDTIME 90 days blood pressure monitor As directed blood pressure test kit-medium (inControl Blood Pressure Monitor kit) As directed blood sugar diagnostic (FreeStyle Lite Strips) Use 1 test strip three times per day blood sugar diagnostic As directed blood-glucose meter (FreeStyle Lite Meter kit) As directed blood-glucose sensor (FreeStyle Raymond 3 Sensor device) As directed cetirizine (All Day Allergy (cetirizine)) 10 mg PO DAILY PRN 90 days ezetimibe 10 mg PO DAILY 90 days insulin degludec (Tresiba FlexTouch U-100 insulin) 10 units (0.1 mL) subcut QPM 30 days lancets (FreeStyle Lancets) Use 1 lancet three times per day lancets As directed levothyroxine 88 mcg PO DAILY 30 days lisinopril 40 mg PO DAILY 90 days metoprolol succinate ER 25 mg PO DAILY nystatin 1 appl topical BID 2 weeks pen needle, diabetic (BD Ultra-Fine Dalia Pen Needle) As directed tid semaglutide (Ozempic) 2 mg (0.75 mL) subcut QWEEK Do you need a note to return to daycare/school/sports/work: No HPI HPI Comments History of Present Illness Details History of Present Illness The patient is a 63-year-old female presenting with a cough and body aches. She reports that her symptoms began approximately a week ago. There is no history of earaches or a sore throat, except for occasional throat discomfort when coughing excessively. The patient noted a runny nose accompanying her symptoms. She has been self-medicating with NyQuil and Tylenol, with some relief, although recent onset of headaches and worsening body aches has been observed. The patient has not received the influenza vaccination this season but had a recent tetanus shot Physical Exam General: Awake, alert. No apparent distress Eyes: Sclera and conjunctiva clear bilaterally Cardiovascular: Regular rate and rhythm Respiratory: Clear to auscultation bilaterally, congested cough w/o distress noted during exam Discussion Notes I discussed with the patient that her symptoms are likely due to Influenza, specifically Type A, given its current prevalence. I explained the option of a diagnostic swab for confirmation but recommended initiating treatment with Tamiflu due to the presented symptomology and high circulation of flu in the community. I advised that [id number]-[id number] medications like DayQuil and NyQuil could continue to be used every six hours for symptomatic relief. I informed the patient to monitor for any worsening or changes in symptoms and to return if necessary. Additionally, I reassured her that her lungs were clear upon auscultation and there was no immediate concern from a pulmonary perspective. Patient Instructions - Begin taking Tamiflu as prescribed: one tablet twice a day for five days. - Continue using DayQuil and NyQuil as needed for symptom management, up to every six hours. - Monitor for worsening symptoms or new symptoms and return if concerns arise. Plan - Prescribe Tamiflu to address Influenza symptoms, dosed one tablet twice daily for five days. - Continue supportive therapy with onys-uqm-nczsmpf medications such as NyQuil as needed. - Educate the patient on recognizing signs of worsening condition and advise on seeking medical attention if symptoms do not improve or deteriorate. Patient was informed and verbally consented to the use of an ambient scribe for clinic note documentation during this visit. [facility] Medical History (Updated 04/30/24 @ 11:56 by Yoselyn Whittington, [facility]) Candidal intertrigo Developmental delay, mild Diabetes mellitus Dyslipidemia Essential hypertension Goiter Non-toxic multinodular goiter Overweight (BMI 25.0-29.9) Palpitations Physical exam Thyroid nodule Vitamin D deficiency Surgical History (Updated 04/22/24 @ 08:18 by Audrey Perez RN) H/O thyroidectomy Hx of colonoscopy Family History Father CAD (coronary artery disease) HTN (hypertension) Mother CAD (coronary artery disease) H/O heart valve replacement with bioprosthetic valve HTN (hypertension) Diabetes Gastrointestinal malignancy Sister HTN (hypertension) Diabetes Atrial fibrillation Familial hyperlipidemia Social History Household Members: Family Household Members Other:: sister Housing: Apartment Housing Other:: duplex Are you a primary healthcare specialist to a significant other at home: No Do you presently have visiting nurse or other home services: No Alcohol intake: never Patient Tobacco Use Status: Never used Tobacco e-Cigarette/Vaping Use: Never Used Second Hand Smoke Exposure: No service: No Current occupational status: disabled Cognitive needs: No Hearing needs: No Vision needs: No Physical Exam Vital Signs: Last Vital Signs Temp 98.6 F 04/30/24 11:41 Pulse 83 04/30/24 11:41 BP 138/80 04/30/24 11:41 Pulse Ox 98 04/30/24 11:41 Assessment & Plan Assessment & Plan (1) Influenza: Code(s): J11.1 - Influenza due to unidentified influenza virus with other respiratory manifestations (2) Cough: Code(s): R05.9 - Cough, unspecified Qualifiers: Cough type: acute Qualified Code(s): R05.1 - Acute cough Plan . Medications: New oseltamivir (Tamiflu) 75 mg PO Q12H 5 days 10 caps 0RF Coding Level of Care Code Est Pt Level 3 (19386) Diagnoses Influenza J11.1 Acute cough R05.1 Cough type: acute
== END 2024-04-30 12:03 | disposition home or self-care (01) ==
PROVIDERS: PCP Internal Medicine; Visit Provider Nurse Practitioner Family
DX: J11.1 Influenza due to unidentified influenza virus with other respiratory manifestations (principal); R05.1 Acute cough

== ENCOUNTER 2024-05-31 10:51 | Outpatient (AMB) | payer OTHER, SELFPAY ==
[2024-05-31 10:54] VITALS: BP 114/48; PULSE 88; O2SAT 97; BMI 21.0
--- NOTE | 2024-05-31 10:54 | A.OFFVIS_ITS ---
Vital Signs 3 05/31/24 10:54 Height 5 ft 2 in Weight 114 lb 10.246 oz BMI 21.0 BP 114/48 L Blood Pressure Location Lt brachial Position Sitting Pulse 88 Pulse Source Pulse Oximeter Pulse Oximetry (%) 97 Oxygen Delivery Method Room Air Intake Visit Reasons: f/u post-operative hypothyroidism,DM Intake Note: Patient present today for Type 2 Diabetes Mellitus and post operative hypothyroidism Last Diabetic eye exam: 02/2024 Last Podiatry Visit: 01/2024 Random Glucose: 103 mg/dl HgA1C: 6.6% Liability Claims Manager Required: Yes Liability Claims Manager Language: Loan Broker Services: Liability Claims Manager Present Liability Claims Manager Name: Susana [id number] Information Interpreted: non-clinical & clinical Accompanied by: Self / Same As Patient Allergies No Known Allergies Allergy (Verified 05/31/24 11:01) Medication List - Last Reconciled 05/31/24 by Dasia Ingram MD amlodipine 2.5 mg PO DAILY 90 days atorvastatin 80 mg PO BEDTIME 90 days blood pressure monitor As directed blood pressure test kit-medium (inControl Blood Pressure Monitor kit) As directed blood sugar diagnostic (FreeStyle Lite Strips) Use 1 test strip three times per day blood sugar diagnostic As directed blood-glucose meter (FreeStyle Lite Meter kit) As directed blood-glucose sensor (FreeStyle Raymond 3 Sensor device) As directed cetirizine (All Day Allergy (cetirizine)) 10 mg PO DAILY PRN 90 days ezetimibe 10 mg PO DAILY 90 days insulin degludec (Tresiba FlexTouch U-100 insulin) 10 units (0.1 mL) subcut QPM 30 days lancets (FreeStyle Lancets) Use 1 lancet three times per day lancets As directed levothyroxine 88 mcg PO DAILY 30 days lisinopril 40 mg PO DAILY 90 days metoprolol succinate ER 25 mg PO DAILY nystatin 1 appl topical BID 2 weeks pen needle, diabetic (BD Ultra-Fine Dalia Pen Needle) As directed tid semaglutide (Ozempic) 2 mg (0.75 mL) subcut QWEEK HPI Comments Details: 63 year old with type 2 diabetes mellitus and postoperative hypothyroidism with history of NIFTP here today for follow up. Type 2 DM Interval history Doing well, no hospitalisations Previous treatment: actos, metformin She was changed from Lantus to low dose Tresiba in Nov 2023 and Humalog for glucose readings in the 250-300 range. daily glimepiride was discontinued. A1c was 12.3% on 10/08/23. a1c 6.4 % POC 03/01/24 Freestyle Raymond downloaded from May 18 to May 31, 2024 Time CGM active 97% Average glucose 128 mg/dL G mi 6.4% Glucose variability 20.9% Within target range 95% High 5 % Very high 0% Low 0% Very low 0% Interpretation: Mostly within target range with the postprandial spike after lunch, and overnight hyperglycemia. Current Rx: Tresiba 10 units once in the morning Ozempic 2mg weekly on Random Glucose: 103 mg/dl HgA1C: 6.6% Denies retinopathy Has eyes checked yearly , no retinopathy,Last Diabetic eye exam: 02/2024 Last Podiatry Visit: 01/2024 Denies neuropathy, foot exam done 03/01/2024 intact sensation to monofilament, however very poor care for her nails. Nephropathy: on [NICK]. normal microalbumin creatinine Jan 2024 HLD on statin and Zetia Last LDL 48 as measured on Jan 2024 [Denies] CAD. Diet: Has met with obstetrics technician. Eats a late breakfast around 11am 2 slice toast with pbj, small glass oj, supper 2 boiled eggs with veg Postoperative hypothyroidism NIFTP She has a longstanding history of a NTMNG She underwent FNA biposy 05/24/[address] Sotelo of the following nodules with the following results: Left mid pole 3.4 cm thyroid nodule: benign (bethesda category II) Left lower pole 1.5 cm thyroid nodule: benign (bethesda category II) Right pole 4.1 cm thyroid nodule: atypia of undetermined significance (bethesda category III), affirma benign She opted to undergo surveillance for her right pole nodule with yearly US. She had a repeat thyroid US 11/29/2020 which revealed significant change of her right mid pole nodule. She then underwent FNA biopsy of this Right mid pole 4.6 cm thyroid nodule by Dr. Savage 06/20/2021, with benign cytology (bethesda category II). Her Right lower pole 1.0 cm thyroid nodule was found to be spongifirm, so no FNA biopsy was indicated. Repeat thyroid US 07/24/2022 reveals significant change in multiple nodules. A repeat ultrasound was performed Oct 2022 to evaluate the thyroid gland. She was found to have multiple large nodules. Her right mid to lower pole nodule does extend substernally and she did exhibit a positive naheed sign from this. Recc total thyroidectomy. status post near total thyroidectomy August [address] Geoff Sexton. 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 She is currently replaced on 88 mcg levothyroxine. She appears to be clinically euthyroid. Most recent TSH TSH 1.75 on 02/20. Physical exam General: sitting comfortably in no acute distress HEENT: normocephalic/atraumatic, , moist oral mucosa Neck: supple, symmetrical, no palpbale masses , no dorsocervical or supraclavicular fat pads Cardiac: normal heart sounds Pulm: normal breath sounds B/L, no added breath sounds Abd: not distended, no tenderness Extremities: no edema, no signs of myxedema Neuro: AAO x3, Speech: normal, no facial droop, moving all 4 extremities Laboratory Tests 07/02/23 10/08/23 02/01/24 15:30 13:43 10:49 Creatinine 0.75 Estimated GFR > 60 Random Glucose 114 Hgb A1c (Clinic) 6.7 H 12.3 H Triglycerides 60 Cholesterol 101 LDL Cholesterol, Calc 48 HDL Cholesterol 41 TSH 1.75 Free T4 1.35 Urine Creatinine Urine Microalbumin Microalb/Creat Ratio 02/01/24 10:50 Creatinine Estimated GFR Random Glucose Hgb A1c (Clinic) Triglycerides Cholesterol LDL Cholesterol, Calc HDL Cholesterol TSH Free T4 Urine Creatinine 159.76 Urine Microalbumin 10.0 Microalb/Creat Ratio 6.2 Laboratory Tests 04/22/24 05/31/24 08:05 11:07 POC Glucose 126 H Hgb A1c (Clinic) 6.6 H [facility] Medical History (Updated 04/30/24 @ 11:56 by Yoselyn Whittington, SSIS DEVELOPER-) Vitamin D deficiency Candidal intertrigo Physical exam Developmental delay, mild Thyroid nodule Non-toxic multinodular goiter Palpitations Goiter Overweight (BMI 25.0-29.9) Dyslipidemia Diabetes mellitus Essential hypertension Surgical History Hx of colonoscopy H/O thyroidectomy Family History Father CAD (coronary artery disease) HTN (hypertension) Mother CAD (coronary artery disease) H/O heart valve replacement with bioprosthetic valve HTN (hypertension) Diabetes Gastrointestinal malignancy Sister HTN (hypertension) Diabetes Atrial fibrillation Familial hyperlipidemia Social History Household Members: Family Household Members Other:: sister Housing: Apartment Housing Other:: duplex Are you a primary primary health care nurse to a significant other at home: No Do you presently have visiting nurse or other home services: No Alcohol intake: never Patient Tobacco Use Status: Never used Tobacco e-Cigarette/Vaping Use: Never Used Second Hand Smoke Exposure: No service: No Current occupational status: disabled Cognitive needs: No Hearing needs: No Vision needs: No Physical Exam Vital Signs: Last Vital Signs Pulse 88 05/31/24 10:54 BP 114/48 L 05/31/24 10:54 Pulse Ox 97 05/31/24 10:54 Oxygen Delivery Method Room Air 05/31/24 10:54 BMI result Body Mass Index 21.0 Office Procedures Glucose Monitoring Details Details: see [facility] [address] - Glucose monitoring, continuous-physician I&R Procedure code (CPT) selection complete Results AMB Hemoglobin A1c 2 AMB Hemoglobin A1c 6.6 % Last Edit by OSCAR Verduzco on 05/31/24 11:22 Assessment & Plan Assessment & Plan (1) Postoperative hypothyroidism: Code(s): E89.0 - Postprocedural hypothyroidism Category: Medical Plan: Patient with a history of nontoxic multinodular goiter, with multiple benign FNA results of several nodules, was noted to have compressive symptoms and underwent total thyroidectomy August 2023 with pathology revealing 0.15 cm NIFTP in the left lobe. Clinically euthyroid and TSH in good range after near-total thyroidectomy , currently on levothyroxine 88 mcg daily. We reviewed : NIFTP: noninvasive follicular thyroid neoplasm with papillary-like nuclear features (NIFTP) NIFTP is a new nomenclature since 2017 and thus far it is considered to have indolent biological behavior, lack of metastasis or recurrence. While thyroid surgery is required to distinguish NIFTP from the encapsulated with invasive subtype, therapy beyond thyroid lobectomy is usually not required (ie, thyroid-stimulating hormone [TSH] suppression and radioactive iodine ablation is not required ? With respect to the follow?up intensity for patients subsequent to neoplasm with papillary like nuclear features (NIFTP) resection. NIFTP is understood as a premalignant lesion Usually we recommend that, until longer term experience with this new entity is gained, the patient should still be followed yearly with neck exam. Neck exam done today was unremarkable. One can also consider annual measurements of thyroglobulin (Tg) and occasional imaging by neck ultrasonography (US) [facility] are unclear about this as of yet. Plan : Repeat TSH and free T4 prior to next follow up in 3 months Yearly neck exam, done today Continue levothyroxine 88 mcg daily (2) Diabetes mellitus: Code(s): E11.9 - Type 2 diabetes mellitus without complications Category: Medical Qualifiers: Diabetes mellitus complication status: without complication Diabetes mellitus longterm insulin use: without longterm use Diabetes mellitus type: t ype 2 Qualified Code(s): E11.9 - Type 2 diabetes mellitus without complications Plan: 63-year-old female with type 2 diabetes mellitus with long-term insulin use. She had worsened control over the earlier part of the this year and during summer her A1c was up to 12.3% in September 2023. Now after starting Ozempic and with modifications to her insulin regimen, A1c has come down to 6.6% POC today 05/31/2024 which is stable from 6.4% POC 03/01/2024. 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 Overall she is in target range with excellent glycemic control, however she does have some postprandial spike after lunch. If she needs further agents, can consider adding an SGLT2 inhibitor. I thought about this today, however blood pressure is on the lower side so we will hold off for now. I spoke with the patient that she is doing rather well with her glycemic control and if she wants we can choose to follow her up WD 6 months, however she expressed some hesitation regarding long follow up. At this point I will see her back in 3 months. Plan: -continue insulin Tresiba 10 units daily -continue Ozempic 2 mg weekly -continue follow up with Podiatry -up to date with eye appointment, no history of retinopathy, emphasized importance of annual eye exams -follow up in 3 months (3) Dyslipidemia: Code(s): E78.5 - Hyperlipidemia, unspecified Category: Medical Plan: LDL from January 2024 goal at 48. Goal is less than 70 mg/dL. Continue atorvastatin and Zetia. -ordered lipid panel to be done prior to next visit in 3 months (4) Essential hypertension: Code(s): I10 - Essential (primary) hypertension Category: Medical Plan: Blood pressure at goal. Continue metoprolol, lisinopril. Plan I spent 30 minutes in reviewing the record, seeing the patient and documenting in the medical record. Orders: Orders 2 AMB Glucose Monitoring Today E11.9 - Type 2 diabetes mellitus without complications Comprehensive Met. Panel 3 Months E04.1 - Nontoxic single thyroid nodule, E11.9 - Type 2 diabetes mellitus without complications, E78.5 - Hyperlipidemia, unspecified, I10 - Essential (primary) hypertension Microalbumin, Random (w Creat) 3 Months E04.1 - Nontoxic single thyroid nodule, E11.9 - Type 2 diabetes mellitus without complications, E78.5 - Hyperlipidemia, unspecified, I10 - Essential (primary) hypertension Free T4 (Free Thyroxine) 3 Months E04.1 - Nontoxic single thyroid nodule, E11.9 - Type 2 diabetes mellitus without complications, E78.5 - Hyperlipidemia, unspecified, I10 - Essential (primary) hypertension AMB Hemoglobin A1c Today E11.9 - Type 2 diabetes mellitus without complications, Z13.9 - Encounter for screening, unspecified Lipid Panel 3 Months E04.1 - Nontoxic single thyroid nodule, E11.9 - Type 2 diabetes mellitus without complications, E78.5 - Hyperlipidemia, unspecified, I10 - Essential (primary) hypertension Hemoglobin A1c 3 Months E04.1 - Nontoxic single thyroid nodule, E11.9 - Type 2 diabetes mellitus without complications, E78.5 - Hyperlipidemia, unspecified, I10 - Essential (primary) hypertension Thyroid Stimulating Hormone 3 Months E04.1 - Nontoxic single thyroid nodule, E11.9 - Type 2 diabetes mellitus without complications, E78.5 - Hyperlipidemia, unspecified, I10 - Essential (primary) hypertension Medications: New 2 glucose (Dex4 Glucose) until symptoms of low blood sugar are controlled, Take 4 tablets when blood sugar is less than 70 mg/dl, repeat in 15 mins if blood sugar still less than 70 mg/dl 4 grams PO Q15M PRN 60 tabs 3RF hypoglycemia Refilled 2 insulin degludec (Tresiba FlexTouch U-100 insulin) 10 units (0.1 mL) subcut QPM 30 days 3 mL 6RF E11.9 - Type 2 diabetes mellitus without complications levothyroxine 88 mcg PO DAILY 30 days 30 tabs 11RF E89.0 - Postprocedural hypothyroidism Patient Instructions: Do fasting blood work and urine test prior to your appointment in 3 months Continue Tresiba 10 units daily Continue Ozempic 2 mg weekly Continue levothyroxine 88 mcg daily Rule of 15 Treatment for Hypoglycemia (Low blood sugar) If your blood glucose is low (70 and below)*, follow the steps below to treat: Eat or drink something from the list below equal to 15 grams of carbohydrate (carb). Rest for 15 minutes Re-check your blood glucose. If it is still low, (below 70), repeat step 1 above. ? If your next meal is more than an hour away, you will need to eat one carbohydrate choice as a snack to keep your blood glucose from going low again. ?If you can't figure out why you have low blood glucose, call your healthcare provider, as your medicine may need to be adjusted. ?Always carry something with you to treat an insulin reaction. Use food from the list below. ? Foods equal to One Carbohydrate Choice (15 grams of carbohydrate): 3 Glucose ?tablets or 4 Dextrose tablets 4 ounces of fruit juice 5-6 ounces (about 1/2 can) of regular soda such as Coke or Pepsi ? 7-8 gummy or regular Life Savers ? 1 Tbsp. of sugar or jelly NOTE: If your blood sugar is less than 50, double the portion above for a total of 30 gm. ?Carbohydrate. ? Follow meal plan of 45-60 g of consistent carbohydrates at 3 meals each day and 15 g of carbohydrate at 1-2 snacks each day. Realice un an?lisis de quentin y orina en ayunas antes de cheung yumi en 3 meses Contin?e con Tresiba 10 unidades diarias Contin?e con Ozempic 2 mg semanalmente Contin?e con levotiroxina 88 mcg diariamente Tratamiento de la simone del 15 para la hipoglucemia (nivel bajo de az?car en quentin) Si cheung nivel de glucosa en quentin es bajo (70 o menos)*, siga los pasos a continuaci?n para tratarlo: Coma o emmie algo de la lista a continuaci?n que sea igual a 15 gramos de carbohidratos (carbohidratos). Descanse mateo 15 minutos Vuelva a controlar cheung nivel de glucosa en quentin. Si sigue siendo bajo (por debajo de 70), repita el paso 1 anterior. Si cheung pr?xima comida es dentro de m?s de milvia hora, deber? comer milvia opci?n de carbohidratos aissatou refrigerio para evitar que cheung nivel de glucosa en quentin baje nuevamente. Si no puede averiguar por qu? tiene un nivel bajo de glucosa en quentin, llame a cheung proveedor de atenci?n m?dica, ya que es posible que deba ajustar cheung medicamento. Siempre lleve algo con usted para tratar milvia reacci?n a la insulina. Use alimentos de la lista a continuaci?n. Alimentos equivalentes a milvia opci?n de carbohidratos (15 gramos de carbohidratos): 3 tabletas de glucosa o 4 tabletas de dextrosa 4 onzas de jugo de fruta 5-6 onzas (aproximadamente 1/2 cesario) de refresco regular aissatou Coca-Cola o Pepsi 7-8 gomitas o Life Savers regulares 1 cucharada de az?car o mermelada NOTA: Si cheung nivel de az?car en quentin es inferior a 50, duplique la porci?n anterior para un total de 30 g de carbohidratos. Siga el plan de alimentaci?n de 45-60 g de carbohidratos consistentes en 3 comidas al d?a y 15 g de carbohidratos en 1-2 refrigerios cada d?a. Coding Level of Care Code Est Pt Level 4 (54121) Diagnoses Postoperative hypothyroidism E89.0 Type 2 diabetes mellitus without complication, without long-term current use of insulin E11.9 Diabetes mellitus complication status: without complication Diabetes mellitus termite treater helper insulin use: without termite treater helper use Diabetes mellitus type: type 2 Dyslipidemia E78.5 Essential hypertension I10 CPT Codes Details - CPT: 53881 - Glucose monitoring, continuous-physician I&R ([id number]) Time Spent (min) 30
[2024-05-31 11:43] LABS: Glucose, Whole Blood 103 mg/dL (60-115)
== END 2024-05-31 11:27 | disposition home or self-care (01) ==
PROVIDERS: PCP Internal Medicine; Visit Provider Student in an Organized Health Care Education/Training Program
DX: E89.0 Postprocedural hypothyroidism (principal); E11.9 Type 2 diabetes mellitus without complications; E78.5 Hyperlipidemia, unspecified; I10 Essential (primary) hypertension; Z13.9 Encounter for screening, unspecified
CPT/HCPCS: 95251; 99214

== ENCOUNTER → 2024-05-31 10:51 | Outpatient (BNVA) | payer OTHER, SELFPAY | PROVIDERS: PCP Internal Medicine; Visit Provider Student in an Organized Health Care Education/Training Program | DX: E89.0 Postprocedural hypothyroidism (principal); E11.9 Type 2 diabetes mellitus without complications; E78.5 Hyperlipidemia, unspecified; I10 Essential (primary) hypertension; Z79.4 Long term (current) use of insulin | CPT/HCPCS: 82947; 83036; 99212 ==

== ENCOUNTER 2024-07-02 10:06 | Outpatient (REF) | payer OTHER, SELFPAY ==
[2024-07-02 11:57] LABS: Alanine Aminotransferase 43 U/L (0-31); Albumin Level 3.8 g/dL (3.5-5.0); Alkaline Phosphatase 81 U/L (39-117); Anion Gap 10 (12-20); Aspartate Amino Transferase 33 U/L (5-31); Bilirubin Total 0.7 mg/dL (0.0-1.0); Blood Urea Nitrogen 31 mg/dL (9-16); Calcium 9.2 mg/dL (8.4-10.2); Carbon Dioxide 26 mmol/L (22-29); Chloride 110 mmol/L (96-108); Cholesterol 95 mg/dL (<200); Estimated Glomerular Filt Rate > 60; Glucose Fasting 125 mg/dL (60-99); HDL Cholesterol 38 mg/dL (>40); LDL Cholesterol Calculated 50 mg/dL (<100); Potassium 3.8 mmol/L (3.3-5.1); Sodium 142 mmol/L (135-145); Total Protein 7.7 g/dL (6.5-8.0); Triglycerides 39 mg/dL (<150)
[2024-07-02 12:19] LABS: Thyroid Stimulating Hormone 0.37 uIU/mL (0.32-4.0); Vitamin D 25-OH Total 44.3 ng/mL (>30)
[2024-07-02 12:56] LABS: Creatinine Urine 152.01 mg/dL; Microalbum/Creatinine Ratio Ur 5.2 ug/mg cr (<30)
== END 2024-07-02 10:07 | disposition home or self-care (01) ==
LOC: HO.LAB 10:06
PROVIDERS: PCP Internal Medicine; Visit Provider Internal Medicine
DX: E11.9 Type 2 diabetes mellitus without complications (principal)
CPT/HCPCS: 36415; 80053; 80061; 82043; 82306; 82570; 84443

== ENCOUNTER 2024-07-13 10:21 | Outpatient (AMB) | payer OTHER, SELFPAY ==
--- NOTE | 2024-07-13 10:26 | MHC.PC.OV ---
Vital Signs 07/13/24 10:27 Height 5 ft 2 in Weight 111 lb BMI 20.3 BP 110/70 Blood Pressure Location Lt brachial Position Sitting Intake Visit Reasons: Annual exam Intake Note: Patient here for a physical exam Deliver Driver Required: No Accompanied by: Self / Same As Patient Allergies No Known Allergies Allergy (Verified 07/13/24 10:53) Medication List - Last Reconciled 07/13/24 by Faith Ny MD amlodipine 2.5 mg PO DAILY 90 days atorvastatin 80 mg PO BEDTIME 90 days blood pressure monitor As directed blood pressure test kit-medium (inControl Blood Pressure Monitor kit) As directed blood sugar diagnostic (FreeStyle Lite Strips) Use 1 test strip three times per day blood sugar diagnostic As directed blood-glucose meter (FreeStyle Lite Meter kit) As directed blood-glucose sensor (FreeStyle Raymond 3 Sensor device) As directed cetirizine (All Day Allergy (cetirizine)) 10 mg PO DAILY PRN 90 days ezetimibe 10 mg PO DAILY 90 days glucose (Dex4 Glucose) 4 grams PO Q15M PRN insulin degludec (Tresiba FlexTouch U-100 insulin) 10 units (0.1 mL) subcut QPM 30 days lancets (FreeStyle Lancets) Use 1 lancet three times per day lancets As directed levothyroxine 88 mcg PO DAILY 30 days lisinopril 40 mg PO DAILY 90 days metoprolol succinate ER 25 mg PO DAILY nystatin 1 appl topical BID 2 weeks pen needle, diabetic (BD Ultra-Fine Dalia Pen Needle) As directed tid semaglutide (Ozempic) 2 mg (0.75 mL) subcut QWEEK Tobacco use date assessed: 04/18/24 Dental Screening Dental Screen Date: 04/18/24 HPI HPI Comments History of Present Illness Details The patient is a 63-year-old female presenting for a wellness visit. She is managing Type 2 Diabetes Mellitus, reflected by a stable HbA1c level of 6.6% as of May. Prescribed Ozempic appears effective without adverse effects. Her Hypothyroidism, post-thyroidectomy, is treated with 88 mcg of levothyroxine. Essential Hypertension is managed with amlodipine and lisinopril, which she tolerates well. Hyperlipidemia is addressed using atorvastatin. She manages Allergic Rhinitis with cetirizine, experiencing infrequent nasal congestion. Mammographic screening conducted in February resulted in normal findings. The patient underwent a colonoscopy in 2020 with subsequent polypectomy, and a repeated procedure is advised for next year. With no known drug allergies, additional focus lies on addressing oral hygiene affected by diabetes. - Completed mammogram in February: Normal results - HbA1c in May: 6.6% - Complete guidelines adherence for colonoscopy repeat planned for 5-year interval (next year) - Diabetes management stable; continued monitoring of blood sugar levels - Vaccinations: Tetanus up-to-date - Recommendation for DEXA scan due to age-related bone density concerns [facility] Medical History Vitamin D deficiency Candidal intertrigo Physical exam Developmental delay, mild Thyroid nodule Non-toxic multinodular goiter Palpitations Goiter Overweight (BMI 25.0-29.9) Dyslipidemia Diabetes mellitus Essential hypertension Surgical History Hx of colonoscopy H/O thyroidectomy Family History Father CAD (coronary artery disease) HTN (hypertension) Mother CAD (coronary artery disease) H/O heart valve replacement with bioprosthetic valve HTN (hypertension) Diabetes Gastrointestinal malignancy Sister HTN (hypertension) Diabetes Atrial fibrillation Familial hyperlipidemia Social History Household Members: Family Household Members Other:: sister Housing: Apartment Housing Other:: duplex Are you a primary acute care occupational therapist to a significant other at home: No Do you presently have visiting nurse or other home services: No Alcohol intake: never Patient Tobacco Use Status: Never used Tobacco e-Cigarette/Vaping Use: Never Used Second Hand Smoke Exposure: No service: No Current occupational status: disabled Cognitive needs: No Hearing needs: No Vision needs: No Questionnaire Thrive Questionnaire Date Thrive assessed: 04/18/24 ANGELA-7 AMB Questionnaire ANGELA-7 Date ANGELA - 7 assessed: 04/18/24 Source: Developed by Drs. Ke Gamble, Lina Acosta, Harshad Perez and colleagues, with an educational dallin from [employer] Review of Systems Const All systems reviewed & are unremarkable except as noted in HPI and below Card Denies chest pain at rest, Denies chest pain with activity, Denies edema, Denies irregular heart rhythm, Denies claudication, Denies dyspnea, Denies dyspnea on exertion, Denies orthopnea, Denies paroxysmal nocturnal dyspnea and Denies slow heart rate Resp Denies cough, Denies dyspnea and Denies dyspnea on exertion GI Denies abdominal pain, Denies change in bowel habits, Denies excessive flatus, Denies nausea and Denies vomiting Denies urinary incontinence, Denies urinary hesitancy and Denies urinary urgency Neuro Denies lack of coordination Physical exam (Primary Care) Vital Signs: Last Vital Signs BP 110/70 07/13/24 10:27 BMI result Body Mass Index 20.3 Tobacco/Smoking Status: Tobacco use Status Tobacco use date assessed 04/18/24 07/13/24 10:37 Patient Tobacco Use Status Never used Tobacco 07/13/24 10:37 e-Cigarette/Vaping Use Never Used 07/13/24 10:37 Thrive Assessment: Date of Thrive Assessment Date Thrive assessed 04/18/24 07/13/24 10:37 HENAZ Head: Yes normal to inspection, Yes normocephalic and Yes atraumatic Ears: external ears normal Eyes General: appearance normal, both eyes and all related structures Eyelids: Yes eyelids normal Conjunctivae: conjunctivae normal Neck Neck: Yes normal visual inspection and Yes supple Resp Effort & Inspection: normal respiratory effort Auscultation: clear to auscultation bilaterally Cardio Jugular venous distension: no JVD Rate: regular rate Rhythm: regular rhythm Heart sounds: S1 normal heart sound present and S2 normal heart sound present GI Inspection: Yes normal to inspection Palpation (GI): Soft to palpation and nontender Auscultation: normal bowel sounds Skin General skin exam: no rashes or lesions noted Neuro General: no focal motor deficits Extrem General: Yes full ROM Psych Appearance: grossly normal Coding Level of Care Code Est Pt Prev Care 40-64y(50743) Diagnoses Physical exam Z00.00 Type 2 diabetes mellitus without complication, without long-term current use of insulin E11.9 Diabetes mellitus type: type 2 Diabetes mellitus prison insulin use: without oil heaterman use Diabetes mellitus complication status: without complication Time Spent (min) 30 Assessment & Plan Assessment & Plan (1) Physical exam: Code(s): Z00.00 - Encounter for general adult medical examination without abnormal findings Category: Medical (2) Diabetes mellitus: Code(s): E11.9 - Type 2 diabetes mellitus without complications Category: Medical Qualifiers: Diabetes mellitus type: type 2 Diabetes mellitus prison insulin use: without oil heaterman use Diabetes mellitus complication status: without complication Qualified Code(s): E11.9 - Type 2 diabetes mellitus without complications Plan Continued management of Type 2 Diabetes Mellitus is crucial, with Ozempic remaining effective and necessary. Hypothyroidism care with levothyroxine is crucial post-thyroidectomy, monitored for efficacy. Management of Essential Hypertension and Hyperlipidemia will proceed with current prescriptions to ensure stability. Allergy relief with cetirizine is effective for Allergic Rhinitis. Monitoring for polyp recurrence is critical, with a colonoscopy scheduled next year. Furthermore, a DEXA scan is scheduled for bone health evaluation. Ongoing proactive engagement in preventative care and chronic illness tracking remains vital. Patient was informed and verbally consented to the use of an ambient scribe for clinic note documentation during this visit. I discussed with the patient the ongoing management of her chronic conditions, including the adequacy of her current medications in controlling her diabetes, thyroid function, hypertension, and hyperlipidemia. We reviewed the importance of routine preventative care, including the upcoming colonoscopy. I emphasized necessary dental health management, especially due to potential diabetic implications, and arranged long-term follow-up for continued monitoring. Options for managing allergic symptoms were reviewed. The need for osteoporosis screening via DEXA was also discussed, given her age and potential risk for bone density loss. Consent was obtained for recommended follow-up screenings and tests. Orders: Orders Microalbumin, Random (w Creat) 4 Months R80.9 - Proteinuria, unspecified Vitamin D 25-OH Total 4 Months E55.9 - Vitamin D deficiency, unspecified Comprehensive [place]. Panel Fast 4 Months E11.9 - Type 2 diabetes mellitus without complications Lipid Panel 4 Months E78.5 - Hyperlipidemia, unspecified Vitamin B12 and Folate 4 Months E53.8 - Deficiency of other specified B group vitamins XR DEXA axial skeleton Today Z78.0 - Asymptomatic menopausal state Thyroid Stimulating Hormone 4 Months E89.0 - Postprocedural hypothyroidism Patient Instructions: - Continue all current medications as prescribed - Schedule a dental appointment for oral health evaluation - Plan for a follow-up colonoscopy next year - Maintain regular appointments for chronic disease monitoring - Attend the scheduled DEXA scan for bone density assessment - Observe for any new or worsening symptoms and report them promptly
[2024-07-13 10:27] VITALS: BP 110/70; BMI 20.3
== END 2024-07-13 11:05 | disposition home or self-care (01) ==
LOC: HO.HMCH 10:22
PROVIDERS: PCP Internal Medicine; Visit Provider Internal Medicine
DX: Z00.00 Encounter for general adult medical examination without abnormal findings (principal); E11.9 Type 2 diabetes mellitus without complications

== ENCOUNTER → 2024-07-13 10:21 | Outpatient (BNVA) | payer OTHER, SELFPAY | PROVIDERS: PCP Internal Medicine; Visit Provider Internal Medicine | DX: Z00.00 Encounter for general adult medical examination without abnormal findings (principal); E11.9 Type 2 diabetes mellitus without complications | CPT/HCPCS: 99396 ==

== ENCOUNTER 2024-08-27 09:59 | Outpatient (REF) | payer OTHER, SELFPAY ==
[2024-08-27 11:24] LABS: Estimated Average Glucose 131 mg/dL; Hemoglobin A1c % 6.2 % (<6.0)
[2024-08-27 11:36] LABS: Alanine Aminotransferase 61 U/L (0-31); Albumin Level 3.8 g/dL (3.5-5.0); Alkaline Phosphatase 75 U/L (39-117); Anion Gap 11 (12-20); Aspartate Amino Transferase 38 U/L (5-31); Bilirubin Total 0.4 mg/dL (0.0-1.0); Blood Urea Nitrogen 29 mg/dL (9-16); Calcium 9.4 mg/dL (8.4-10.2); Carbon Dioxide 23 mmol/L (22-29); Chloride 112 mmol/L (96-108); Cholesterol 101 mg/dL (<200); Estimated Glomerular Filt Rate > 60; Glucose Random 126 mg/dL (60-115); HDL Cholesterol 38 mg/dL (>40); LDL Cholesterol Calculated 54 mg/dL (<100); Potassium 3.8 mmol/L (3.3-5.1); Sodium 142 mmol/L (135-145); Total Protein 7.4 g/dL (6.5-8.0); Triglycerides 49 mg/dL (<150)
[2024-08-27 11:52] LABS: Free T4 (Free Thyroxine) 1.14 ng/dL (0.71-1.85); Thyroid Stimulating Hormone 0.97 uIU/mL (0.32-4.0)
[2024-08-27 12:35] LABS: Creatinine Urine 142.65 mg/dL; Microalbum/Creatinine Ratio Ur 6.3 ug/mg cr (<30)
== END 2024-08-27 10:00 | disposition home or self-care (01) ==
LOC: HO.LAB 09:59
PROVIDERS: PCP Internal Medicine; Visit Provider Student in an Organized Health Care Education/Training Program
DX: E04.1 Nontoxic single thyroid nodule (principal); E78.5 Hyperlipidemia, unspecified; E11.9 Type 2 diabetes mellitus without complications; I10 Essential (primary) hypertension
CPT/HCPCS: 36415; 80053; 80061; 82043; 82570; 83036; 84439; 84443

== ENCOUNTER 2024-09-07 14:36 | Outpatient (AMB) | payer OTHER, SELFPAY ==
--- NOTE | 2024-09-07 14:42 | MHC.OFFVIS ---
Vital Signs 09/07/24 14:47 Height 5 ft 2 in Weight 111 lb BMI 20.3 BP 114/50 L Blood Pressure Location Lt brachial Position Sitting Pulse 78 Pulse Source Pulse Oximeter Pulse Oximetry (%) 98 Oxygen Delivery Method Room Air Intake Visit Reasons: DM Intake Note: Patient present today for Type 2 Diabetes Mellitus Last Diabetic eye exam: 02/2024 Last Podiatry Visit: 07/22/2024 Random Glucose: 201 mg/dl HgA1C: 6.2% 08/27/24 Tobacco Grower Required: Yes Tobacco Grower Language: Aeronautical Project Engineer Services: Tobacco Grower Present Tobacco Grower Name: German [id number] Information Interpreted: non-clinical & clinical Accompanied by: Self / Same As Patient Allergies No Known Allergies Allergy (Verified 09/07/24 14:49) Medication List - Last Reconciled 09/07/24 by Dasia Ingram MD amlodipine 2.5 mg PO DAILY 90 days atorvastatin 80 mg PO BEDTIME 90 days blood pressure monitor As directed blood pressure test kit-medium (inControl Blood Pressure Monitor kit) As directed blood sugar diagnostic (FreeStyle Lite Strips) Use 1 test strip three times per day blood sugar diagnostic As directed blood-glucose meter (FreeStyle Lite Meter kit) As directed blood-glucose sensor (FreeStyle Raymond 3 Sensor device) As directed cetirizine (All Day Allergy (cetirizine)) 10 mg PO DAILY PRN 90 days ezetimibe 10 mg PO DAILY 90 days glucose (Dex4 Glucose) 4 grams PO Q15M PRN insulin degludec (Tresiba FlexTouch U-100 insulin) 10 units (0.1 mL) subcut QPM 30 days lancets (FreeStyle Lancets) Use 1 lancet three times per day lancets As directed levothyroxine 88 mcg PO DAILY 30 days lisinopril 40 mg PO DAILY 90 days metoprolol succinate ER 25 mg PO DAILY nystatin 1 appl topical BID 2 weeks pen needle, diabetic (BD Ultra-Fine Dalia Pen Needle) As directed tid semaglutide (Ozempic) 2 mg (0.75 mL) subcut QWEEK HPI Comments Details: 63 year old with type 2 diabetes mellitus and postoperative hypothyroidism with history of NIFTP here today for follow up. Type 2 DM Interval history Doing well, no hospitalisations Previous treatment: actos, metformin She was changed from Lantus to low dose Tresiba in Nov 2023 and Humalog for glucose readings in the 250-300 range. daily glimepiride was discontinued. A1c was 12.3% on 10/08/23. a1c 6.4 % POC 03/01/24 HgA1C: 6.2% 08/27/24 Freestyle Raymond 3 downloaded from August 25 to 09/07/2024 Time CGM active 78% Average glucose 125 mg/dL G KS 6.3% Glucose variability 19% Within target range 97% High 3% Low 0% Interpretation: Excellent glycemic control Current Rx: Tresiba 10 units once in the morning Ozempic 2mg weekly on Random Glucose: 201 mg/dl Denies retinopathy Has eyes checked yearly , no retinopathy,Last Diabetic eye exam: 02/2024 Last Podiatry Visit: 07/22/24 Denies neuropathy, foot exam done 03/01/2024 intact sensation to monofilament, however very poor care for her nails. Nephropathy: on [NICK]. normal microalbumin creatinine July 2024 HLD on statin and Zetia Last LDL 54 as measured on July 2024 [Denies] CAD. Diet: Has met with microchip specialist. Eats a late breakfast around 11am 2 slice toast with pbj, small glass oj, supper 2 boiled eggs with veg Postoperative hypothyroidism NIFTP She has a longstanding history of a NTMNG She underwent FNA biposy 05/24/[address] Sotelo of the following nodules with the following results: Left mid pole 3.4 cm thyroid nodule: benign (bethesda category II) Left lower pole 1.5 cm thyroid nodule: benign (bethesda category II) Right pole 4.1 cm thyroid nodule: atypia of undetermined significance (bethesda category III), affirma benign She opted to undergo surveillance for her right pole nodule with yearly US. She had a repeat thyroid US 11/29/2020 which revealed significant change of her right mid pole nodule. She then underwent FNA biopsy of this Right mid pole 4.6 cm thyroid nodule by Dr. Savage 06/20/2021, with benign cytology (bethesda category II). Her Right lower pole 1.0 cm thyroid nodule was found to be spongifirm, so no FNA biopsy was indicated. Repeat thyroid US 07/24/2022 reveals significant change in multiple nodules. A repeat ultrasound was performed Oct 2022 to evaluate the thyroid gland. She was found to have multiple large nodules. Her right mid to lower pole nodule does extend substernally and she did exhibit a positive naheed sign from this. Recc total thyroidectomy. status post near total thyroidectomy August 2023 wimarissa Sexton. 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 She is currently replaced on 88 mcg levothyroxine. She appears to be clinically euthyroid. Most recent TSH normal July 2024 Physical exam General: sitting comfortably in no acute distress HEENT: normocephalic/atraumatic, , moist oral mucosa Neck: supple, symmetrical, no pal[place] masses , no dorsocervical or supraclavicular fat pads Cardiac: normal heart sounds Pulm: normal breath sounds B/L, no added breath sounds Abd: not distended, no tenderness Extremities: no edema, no signs of myxedema Neuro: AAO x3, Speech: normal, no facial droop, moving all 4 extremities Laboratory Tests 07/02/23 10/08/23 02/01/24 15:30 13:43 10:49 Creatinine 0.75 Estimated GFR > 60 Random Glucose 114 Hgb A1c (Clinic) 6.7 H 12.3 H Triglycerides 60 Cholesterol 101 LDL Cholesterol, Calc 48 HDL Cholesterol 41 TSH 1.75 Free T4 1.35 Urine Creatinine Urine Microalbumin Microalb/Creat Ratio 02/01/24 10:50 Creatinine Estimated GFR Random Glucose Hgb A1c (Clinic) Triglycerides Cholesterol LDL Cholesterol, Calc HDL Cholesterol TSH Free T4 Urine Creatinine 159.76 Urine Microalbumin 10.0 Microalb/Creat Ratio 6.2 Laboratory Tests 04/22/24 05/31/24 08:05 11:07 POC Glucose 126 H Hgb A1c (Clinic) 6.6 H Laboratory Tests 08/27/24 08/27/24 10:08 10:11 Sodium 142 Potassium 3.8 Creatinine 0.63 Estimated GFR > 60 Random Glucose 126 H Hemoglobin A1c % 6.2 H Calcium 9.4 AST 38 H ALT 61 H Triglycerides 49 Cholesterol 101 LDL Cholesterol, Calc 54 HDL Cholesterol 38 L TSH 0.97 Free T4 1.14 Urine Creatinine 142.65 Urine Microalbumin 9.0 Microalb/Creat Ratio 6.3 [facility] Medical History Vitamin D deficiency Candidal intertrigo Physical exam Developmental delay, mild Thyroid nodule Non-toxic multinodular goiter Palpitations Goiter Overweight (BMI 25.0-29.9) Dyslipidemia Diabetes mellitus Essential hypertension Surgical History Hx of colonoscopy H/O thyroidectomy Family History Father CAD (coronary artery disease) HTN (hypertension) Mother CAD (coronary artery disease) H/O heart valve replacement with bioprosthetic valve HTN (hypertension) Diabetes Gastrointestinal malignancy Sister HTN (hypertension) Diabetes Atrial fibrillation Familial hyperlipidemia Social History Household Members: Family Household Members Other:: sister Housing: Apartment Housing Other:: duplex Are you a primary companion caregiver to a significant other at home: No Do you presently have visiting nurse or other home services: No Alcohol intake: never Patient Tobacco Use Status: Never used Tobacco e-Cigarette/Vaping Use: Never Used Second Hand Smoke Exposure: No service: No Current occupational status: disabled Cognitive needs: No Hearing needs: No Vision needs: No Physical Exam Vital Signs: Last Vital Signs Pulse 78 09/07/24 14:47 BP 114/50 L 09/07/24 14:47 Pulse Ox 98 09/07/24 14:47 Oxygen Delivery Method Room Air 09/07/24 14:47 BMI result Body Mass Index 20.3 Office Procedures Glucose Monitoring Details Details: see [facility] [id number] - Glucose monitoring, continuous-physician I&R Procedure code (CPT) selection complete Assessment & Plan Assessment & Plan (1) Postoperative hypothyroidism: Code(s): E89.0 - Postprocedural hypothyroidism Category: Medical Plan: Patient with a history of nontoxic multinodular goiter, with multiple benign FNA results of several nodules, was noted to have compressive symptoms and underwent total thyroidectomy August 2023 with pathology revealing 0.15 cm NIFTP in the left lobe. Clinically euthyroid and TSH in good range after near-total thyroidectomy , currently on levothyroxine 88 mcg daily. We reviewed : NIFTP: noninvasive follicular thyroid neoplasm with papillary-like nuclear features (NIFTP) NIFTP is a new nomenclature since 2017 and thus far it is considered to have indolent biological behavior, lack of metastasis or recurrence. While thyroid surgery is required to distinguish NIFTP from the encapsulated with invasive subtype, therapy beyond thyroid lobectomy is usually not required (ie, thyroid-stimulating hormone [TSH] suppression and radioactive iodine ablation is not required ? With respect to the follow?up intensity for patients subsequent to neoplasm with papillary like nuclear features (NIFTP) resection. NIFTP is understood as a premalignant lesion Usually we recommend that, until longer term experience with this new entity is gained, the patient should still be followed yearly with neck exam. Neck exam done today was unremarkable. One can also consider annual measurements of thyroglobulin (Tg) and occasional imaging by neck ultrasonography (US) howeevr guidelines are unclear about this as of yet. Plan : Yearly neck exam, done 05/31/2024 Continue levothyroxine 88 mcg daily (2) Diabetes mellitus: Code(s): E11.9 - Type 2 diabetes mellitus without complications Category: Medical Qualifiers: Diabetes mellitus type: type 2 Diabetes mellitus long term care administrator insulin use: with long term care administrator use Diabetes mellitus complication status: without complication Qualified Code(s): E11.9 - Type 2 diabetes mellitus without complications; Z79.4 - USP (current) use of insulin Plan: 63-year-old female with type 2 diabetes mellitus with long-term insulin use. She had worsened control over the earlier part of the this year and during summer her A1c was up to 12.3% in September 2023. Now after starting Ozempic and with modifications to her insulin regimen, A1c has come down to 6.2% in July 2024 which is stable from 6.4% POC 03/01/2024. I reviewed her CGM data which shows excellent glycemic control. If she needs further agents, can consider adding an SGLT2 inhibitor. I thought about this today, however blood pressure is on the lower side so we will hold off for now. I spoke with the patient that she is doing rather well with her glycemic control and if she wants we can choose to follow her up WD 6 months, however she expressed some hesitation regarding long follow up. At this point I will see her back in 4-5 months months. Plan: -continue insulin Tresiba 10 units daily -continue Ozempic 2 mg weekly -continue follow up with Podiatry -up to date with eye appointment, no history of retinopathy, emphasized importance of annual eye exams -follow up in 4-5 months (3) Dyslipidemia: Code(s): E78.5 - Hyperlipidemia, unspecified Category: Medical Plan: LDL from July 2024 goal at 54. Goal is less than 70 mg/dL. Continue atorvastatin and Zetia. (4) Essential hypertension: Code(s): I10 - Essential (primary) hypertension Category: Medical Plan: Blood pressure at goal. Continue metoprolol, lisinopril. Plan I spent 30 minutes in reviewing the record, seeing the patient and documenting in the medical record. Orders: Orders AMB Glucose Monitoring Today E11.9 - Type 2 diabetes mellitus without complications, Z79.4 - USP (current) use of insulin Medications: Changed From pen needle, diabetic (BD Ultra-Fine Dalia Pen Needle) As directed tid 100 ea 11RF E11.9 - Type 2 diabetes mellitus without complications To pen needle, diabetic As directed tid 100 ea 11RF E11.9 - Type 2 diabetes mellitus without complications Refilled semaglutide (Ozempic) 2 mg (0.75 mL) subcut QWEEK 9 mL 4RF insulin degludec (Tresiba FlexTouch U-100 insulin) 10 units (0.1 mL) subcut QPM 30 days 3 mL 8RF E11.9 - Type 2 diabetes mellitus without complications Coding Level of Care Code Est Pt Level 4 (51203) Diagnoses Postoperative hypothyroidism E89.0 Type 2 diabetes mellitus without complication, with long-term current use of insulin E11.9; Z79.4 Diabetes mellitus type: type 2 Diabetes mellitus long term care administrator insulin use: with intermediate use Diabetes mellitus complication status: without complication Dyslipidemia E78.5 Essential hypertension I10 CPT Codes Details - CPT: 72555 - Glucose monitoring, continuous-physician I&R ([id number]) Time Spent (min) 30
[2024-09-07 14:47] VITALS: BP 114/50; PULSE 78; O2SAT 98; BMI 20.3
[2024-09-07 14:56] LABS: Glucose, Whole Blood 201 mg/dL (60-115)
== END 2024-09-07 15:12 | disposition home or self-care (01) ==
LOC: HO.ENCR 14:37
PROVIDERS: PCP Internal Medicine; Visit Provider Student in an Organized Health Care Education/Training Program
DX: E89.0 Postprocedural hypothyroidism (principal); E11.9 Type 2 diabetes mellitus without complications; Z79.4 Long term (current) use of insulin; E78.5 Hyperlipidemia, unspecified; I10 Essential (primary) hypertension
CPT/HCPCS: 95251; 99214

== ENCOUNTER → 2024-09-07 14:36 | Outpatient (BNVA) | payer OTHER, SELFPAY | PROVIDERS: PCP Internal Medicine; Visit Provider Student in an Organized Health Care Education/Training Program | DX: E89.0 Postprocedural hypothyroidism (principal) | CPT/HCPCS: 82947; 99212 ==

== ENCOUNTER 2024-09-19 10:21 | Outpatient (AMB) | payer OTHER, SELFPAY ==
--- NOTE | 2024-09-19 10:28 | MHC.OFFVIS ---
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 Metal Reclamation Kettle Tender Language: Clinic Cma Name: keyon/puerto [id number] Accompanied by: Self / Same As Patient Allergies No Known Allergies Allergy (Verified 09/07/24 14:49) Medication List - Last Reconciled 09/19/24 by Bruno Ellsworth MD amlodipine 2.5 mg PO DAILY 90 days atorvastatin 80 mg PO BEDTIME 90 days blood pressure monitor As directed blood pressure test kit-medium (inControl Blood Pressure Monitor kit) As directed blood sugar diagnostic (FreeStyle Lite Strips) Use 1 test strip three times per day blood sugar diagnostic As directed blood-glucose meter (FreeStyle Lite Meter kit) As directed blood-glucose sensor (FreeStyle Raymond 3 Sensor device) As directed cetirizine (All Day Allergy (cetirizine)) 10 mg PO DAILY PRN 90 days ezetimibe 10 mg PO DAILY 90 days glucose (Dex4 Glucose) 4 grams PO Q15M PRN insulin degludec (Tresiba FlexTouch U-100 insulin) 10 units (0.1 mL) subcut QPM 30 days lancets (FreeStyle Lancets) Use 1 lancet three times per day lancets As directed levothyroxine 88 mcg PO DAILY 30 days lisinopril 40 mg PO DAILY 90 days metoprolol succinate ER 25 mg PO DAILY nystatin 1 appl topical BID 2 weeks pen needle, diabetic As directed tid semaglutide (Ozempic) 2 mg (0.75 mL) subcut QWEEK HPI Comments Details: [age] year female who is here for follow-up. She has background history of palpitations. She has diabetes and follows with endocrinology closely. Previously had echocardiography which did not show any LV dysfunction or valvular disease. Denying any symptoms on follow-up. Blood pressure is low 100/50. She is denying any palpitations or dizziness. [facility] Medical History Vitamin D deficiency Candidal intertrigo Physical exam Developmental delay, mild Thyroid nodule Non-toxic multinodular goiter Palpitations Goiter Overweight (BMI 25.0-29.9) Dyslipidemia Diabetes mellitus Essential hypertension Surgical History Hx of colonoscopy H/O thyroidectomy Family History Father CAD (coronary artery disease) HTN (hypertension) Mother CAD (coronary artery disease) H/O heart valve replacement with bioprosthetic valve HTN (hypertension) Diabetes Gastrointestinal malignancy Sister HTN (hypertension) Diabetes Atrial fibrillation Familial hyperlipidemia Social History Household Members: Family Household Members Other:: sister Housing: Apartment Housing Other:: duplex Are you a primary school child care attendant to a significant other at home: No Do you presently have visiting nurse or other home services: No Alcohol intake: never Patient Tobacco Use Status: Never used Tobacco e-Cigarette/Vaping Use: Never Used Second Hand Smoke Exposure: No service: No Current occupational status: disabled Cognitive needs: No Hearing needs: No Vision needs: No Review of Systems Const Denies chills, Denies fatigue, Denies fever(s), Denies frequent falls, Denies weakness, Denies weight gain and Denies weight loss ENT Denies dizziness Card Denies chest pain, Denies leg edema, Denies lightheadedness, Denies palpitations, Denies dyspnea and Denies dyspnea on exertion Resp Denies cough, Denies dyspnea and Denies dyspnea on exertion GI Denies hematochezia Musc Denies abnormal gait, Denies muscle weakness, Denies numbness, Denies radiating pain into limb and Denies tingling Neuro Denies abnormal gait, Denies dizziness, Denies frequent falls, Denies numbness, Denies tingling and Denies weakness Endo Denies fatigue and Denies palpitations Physical Exam Vital Signs: Last Vital Signs Pulse 77 09/19/24 10:31 BP 100/50 L 09/19/24 10:31 BMI result Body Mass Index 20.8 GENERAL APPEARANCE: in no acute distress, well developed, well nourished. NECK/THYROID: no carotid bruit, no jugular venous distention. SKIN: no suspicious lesions, warm and dry. HEART: no murmurs, regular rate and rhythm, S1, S2 normal. LUNGS: clear to auscultation bilaterally. ABDOMEN: normal, bowel sounds present, soft, nontender, nondistended. EXTREMITIES: no clubbing, cyanosis, or edema. PERIPHERAL PULSES: equal. NEUROLOGIC: nonfocal, alert and oriented. PSYCH: mood/affect full range. Office Procedures EKG Details: Sinus rhythm 77 beats per minute, normal axis, can not rule out septal infarct, QTC 427 milliseconds. [id number], Complete Assessment & Plan Assessment & Plan (1) Essential hypertension: Code(s): I10 - Essential (primary) hypertension Category: Medical Plan Pleasant 63-year-old female here for follow-up. Blood pressure is 100/50. I have advised her to stop the amlodipine. Encouraged her to drink more water and keep herself well hydrated. Following closely with endocrinology for diabetes. Follow-up with us in 1 year. Thank you for allowing me to participate in the care of your patient. Please feel free to contact me if you have any questions. Medications: Discontinued amlodipine Discontinued Reason: Doctor's Order 2.5 mg PO DAILY 90 days 90 tabs 0RF I10 - Essential (primary) hypertension Coding Level of Care Code Est Pt Level 3 (60637) Diagnoses Essential hypertension I10 CPT Codes EKG - CPT: 11763-[id number], Complete ([id number])
[2024-09-19 10:31] VITALS: BP 100/50; PULSE 77; BMI 20.8
== END 2024-09-19 11:30 | disposition home or self-care (01) ==
LOC: HO.HCS 10:22
PROVIDERS: PCP Internal Medicine; Visit Provider Internal Medicine Cardiovascular Disease
DX: I10 Essential (primary) hypertension (principal)
CPT/HCPCS: 93010; 99213

== ENCOUNTER → 2024-09-19 10:21 | Outpatient (BNVA) | payer OTHER, SELFPAY | PROVIDERS: PCP Internal Medicine; Visit Provider Internal Medicine Cardiovascular Disease | DX: I10 Essential (primary) hypertension (principal) | CPT/HCPCS: 93005; 99212 ==

== ENCOUNTER 2024-09-21 11:20 | Outpatient (REF) | payer OTHER, SELFPAY ==
--- NOTE | ~2024-09-21 | MM_ITS ---
EXAMINATION: DXA BONE DENSITY AXIAL HISTORY: Z78.0 - Asymptomatic menopausal state TECHNIQUE: [email or web address] Dual energy absorptiometry (DEXA) of the lumbar spine, total left hip, and femoral neck was performed. COMPARISON: There are no prior studies for comparison. FINDINGS: The bone mineral density of the lumbar spine is 1.081, corresponding to a T-score of -0.7, and a Z-score of 1.2. This is indicative of normal bone mineral density. The bone mineral density of the left total hip is 0.848, corresponding to a T-score of -1.3, and a Z-score of 0.2. This is indicative of osteopenia. The bone mineral density of the left femoral neck is 0.826, corresponding to a T-score of -1.5, and a Z-score of 0.2. This is indicative of osteopenia. FRACTURE RISK: The FRAX index suggests a risk of major osteoporotic fracture of 4.5%, and of hip fracture 0.5%. MM/XR DEXA axial skeleton IMPRESSION: Based on bone mineral density, and according to World Health Organization (WHO) criteria, the diagnosis is consistent with osteopenia. All bone density values are in grams per centimeter squared (g/cm2). Statistically, 68% of repeat scans fall within 1 SD (+/- 0.010 g/cm2 for AP spine L1-L4) and 1 SD (+/- 0.012 g/cm2 for femur total) FRAX is a trademark of the [employer] [employer] [facility] [employer], a World Health Organization (WHO) Collaborating Center. Electronically signed by: Ke Thorpe MD 09/21/2024 12:31 PM EDT
== END 2024-09-21 11:21 | disposition home or self-care (01) ==
LOC: HO.MAMMO 11:20
PROVIDERS: PCP Internal Medicine; Visit Provider Internal Medicine
DX: Z13.820 Encounter for screening for osteoporosis (principal); Z78.0 Asymptomatic menopausal state
CPT/HCPCS: 77080

== ENCOUNTER → 2024-09-21 11:30 | Outpatient (BNV) | payer OTHER, SELFPAY | PROVIDERS: PCP Internal Medicine; Visit Provider Radiology Diagnostic Radiology | DX: E28.39 Other primary ovarian failure (principal) | CPT/HCPCS: 77080 ==

== ENCOUNTER 2024-12-08 09:45 | Outpatient (AMB) | payer OTHER, SELFPAY ==
--- NOTE | 2024-12-08 10:22 | A.OFFPC_ITS ---
Vital Signs 12/08/24 10:23 12/08/24 10:31 Weight 111 lb 12.39 oz BP 90/54 L 90/60 Blood Pressure Location Lt brachial Lt brachial Position Sitting Sitting Pulse 60 Pulse Source Pulse Oximeter Pulse Oximetry (%) 95 Intake Visit Reasons: dm Unit Tender Required: No Accompanied by: Self / Same As Patient Allergies No Known Allergies Allergy (Verified 12/08/24 10:32) Medication List - Last Reconciled 12/08/24 by Faith Ny MD atorvastatin 80 mg PO BEDTIME 90 days blood pressure monitor As directed blood pressure test kit-medium (inControl Blood Pressure Monitor kit) As directed blood sugar diagnostic (FreeStyle Lite Strips) Use 1 test strip three times per day blood sugar diagnostic As directed blood-glucose meter (FreeStyle Lite Meter kit) As directed blood-glucose sensor (FreeStyle Raymond 3 Plus Sensor device) As directed every 15 days calcium carbonate-vitamin D3 500 mg-10 mcg (400 unit) (Oyster Shell Calcium- Vitamin D3) 1 tab PO BID 90 days cetirizine (All Day Allergy (cetirizine)) 10 mg PO DAILY PRN 90 days ezetimibe 10 mg PO DAILY 90 days glucose (Dex4 Glucose) 4 grams PO Q15M PRN insulin degludec (Tresiba FlexTouch U-100 insulin) 10 units (0.1 mL) subcut QPM 30 days lancets (FreeStyle Lancets) Use 1 lancet three times per day lancets As directed levothyroxine 88 mcg PO DAILY 30 days lisinopril 40 mg PO DAILY 90 days metoprolol succinate ER 25 mg PO DAILY nystatin 1 appl topical BID 2 weeks pen needle, diabetic As directed tid semaglutide (Ozempic) 2 mg (0.75 mL) subcut QWEEK Tobacco use date assessed: 04/18/24 Dental Screening Dental Screen Date: 12/08/24 Did you have a dental visit in the last 12 months?: No Did you have a dental problem in the last 6 months where you did not have access to dental care?: No Was dental information given to patient?: No HPI HPI Comments History of Present Illness Details The patient is a 63-year-old female presenting with the monitoring of chronic conditions, including diabetes and hypertension. The patient has a history of diabetes mellitus, managed with insulin therapy, specifically Tresiba at 10 units daily. She also uses Ozempic 2 mg weekly for glycemic control. A1c of 6.5% therefore blood sugar within goal. Osteopenia was identified in August during an osteometrial density screening, and the patient is on calcium with vitamin D supplementation as a preventative measure. The patient has hyperlipidemia, managed with atorvastatin 80 mg and ezetimibe. Hypothyroidism is treated with levothyroxine 88 mcg daily, following postoperative hypothyroidism after fibroidectomy last year. Hypertension is controlled with lisinopril, which was adjusted from 40 mg to 30 mg due to low blood pressure readings of 90/54 mmHg. The patient denies any history of smoking or alcohol use. There is a mention of depression, although the patient denies feeling persistently depressed or having little interest in activities. [facility] Medical History Vitamin D deficiency Candidal intertrigo Physical exam Developmental delay, mild Thyroid nodule Non-toxic multinodular goiter Palpitations Goiter Overweight (BMI 25.0-29.9) Dyslipidemia Diabetes mellitus Essential hypertension Surgical History Hx of colonoscopy H/O thyroidectomy Family History Father CAD (coronary artery disease) HTN (hypertension) Mother CAD (coronary artery disease) H/O heart valve replacement with bioprosthetic valve HTN (hypertension) Diabetes Gastrointestinal malignancy Sister HTN (hypertension) Diabetes Atrial fibrillation Familial hyperlipidemia Social History Household Members: Family Household Members Other:: sister Housing: Apartment Housing Other:: duplex Are you a primary skin care specialist to a significant other at home: No Do you presently have visiting nurse or other home services: No Alcohol intake: never Patient Tobacco Use Status: Never used Tobacco e-Cigarette/Vaping Use: Never Used Second Hand Smoke Exposure: No service: No Current occupational status: disabled Cognitive needs: No Hearing needs: No Vision needs: No Questionnaire PHQ-9 Over the last 2 weeks, how often have you been bothered by any of the following problems? 1. Little interest or pleasure in doing things: not at all 2. Feeling down, depressed, or hopeless: not at all 3. Trouble falling or staying asleep, or sleeping too much: not at all 4. Feeling tired or having little energy: not at all 5. Poor appetite or overeating: not at all 6. Feeling bad about yourself - or that you are a failure or have let yourself or your family down: not at all 7. Trouble concentrating on things, such as reading the newspaper or watching television: not at all 8. Moving or speaking so slowly that other people could have noticed. Or the opposite - being so fidgety or restless that you have been moving around a lot more than usual: not at all 9. Thoughts that you would be better off or of hurting yourself in some way: not at all Total score: 0 Depression Screening Interpretation: Negative Depression Screening Done: Yes 09206 - PHQ-9 Billing: Yes Source: Developed by Drs. Ke Gamble, Lina Acosta, Harshad Perez and colleagues, with an educational dallin from [employer]. Thrive Questionnaire Date Thrive assessed: 12/01/24 I am a: Patient What is your living situation today?: I have a steady place to live Within the past 12 months, did the food you bought not last and you didn't have the money to get more?: Never true Within the past 12 months, did you worry whether your food would run out before you got money to buy more?: Often true Do you have trouble paying for medicines?: No Do you have trouble getting transportation to medical appointments?: No Do you have trouble paying your heating and electricity bill?: No Do you have trouble taking care of your child, family member or friend?: Yes Do you have trouble with day-to-day activities such as bathing, preparing meals, shopping, managing finances, etc.?: Yes Are you currently unemployed and looking for a job?: No Are you interested in more education?: No Please select the resources that you would like help with: None Currently or been in a relationship where the following occur: No concerns reported THRIVE Score: 1 AUDIT C Alcohol Use Questionnaire (AUDIT-C) 1. How often do you have a drink containing alcohol?: Never 3. How often do you have six or more drinks on one occasion?: Never Total Score: 0 Score Reviewed/Action Taken: No ANGELA-7 AMB Questionnaire ANGELA-7 Date ANGELA - 7 assessed: 04/18/24 Feeling nervous, anxious, or on edge: 0 = Not at all Not being able to stop or control worryin = Not at all Worrying too much about different things: 0 = Not at all Trouble relaxin = Not at all Being so restless that it is hard to sit still: 0 = Not at all Becoming easily annoyed or irritable: 0 = Not at all Feeling afraid as if something awful might happen: 0 = Not at all Total ANGELA-7 score (0-4 normal; 5-9 mild; 10-14 moderate; 15-21 severe): 0 Source: Developed by Drs. Ke Gamble, Lina Acosta, Harshad Perez and colleagues, with an educational dallin from [employer]. ANGELA-7 Assessment Billing ANGELA-7 Assessment Tool: ANGELA-7 Assessment 19575 Review of Systems Const All systems reviewed & are unremarkable except as noted in HPI and below Card Denies chest pain at rest, Denies chest pain with activity, Denies edema, Denies irregular heart rhythm, Denies claudication, Denies dyspnea, Denies dyspnea on exertion, Denies orthopnea, Denies paroxysmal nocturnal dyspnea and Denies slow heart rate Resp Denies cough, Denies dyspnea and Denies dyspnea on exertion Physical exam (Primary Care) Vital Signs: Last Vital Signs Pulse 60 12/08/24 10:23 BP 90/60 12/08/24 10:31 Pulse Ox 95 12/08/24 10:23 Tobacco/Smoking Status: Tobacco use Status Tobacco use date assessed 04/18/24 12/08/24 10:31 Patient Tobacco Use Status Never used Tobacco 12/08/24 10:31 e-Cigarette/Vaping Use Never Used 12/08/24 10:31 PHQ-9: PHQ-9 Score PHQ-9: Total score 0 12/08/24 10:39 Depression Screening Interpretation: Negative Thrive Assessment: Date of Thrive Assessment Date Thrive assessed 12/01/24 12/08/24 10:31 Currently or been in a relationship where the following occur: No concerns reported Resp Effort & Inspection: normal respiratory effort Auscultation: clear to auscultation bilaterally Cardio Jugular venous distension: no JVD Rate: regular rate Rhythm: regular rhythm Heart sounds: S1 normal heart sound present and S2 normal heart sound present Extrem General: Yes full ROM Results AMB Hemoglobin A1c AMB Hemoglobin A1c 6.5 % Last Edit by Camille Moser MA on 12/08/24 10:47 Coding Level of Care Code Est Pt Level 4 (42080) Complex EM visit Add On G2211 Diagnoses Type 2 diabetes mellitus without complication, with long-term current use of insulin E11.9; Z79.4 Diabetes mellitus complication status: without complication Diabetes mellitus usp 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 Diabetes mellitus type: type 2 Essential hypertension I10 Dyslipidemia E78.5 Postoperative hypothyroidism E89.0 Osteopenia M85.80 Additional Codes PHQ-9 - 38799 - PHQ-9 Billing: Yes ([id number]) ANGELA-7 Assessment Billing - ANGELA-7 Assessment Tool: ANGELA-7 Assessment 39523 ([id number]) Time Spent (min) 22 Assessment & Plan Assessment & Plan (1) Diabetes mellitus: Code(s): E11.9 - Type 2 diabetes mellitus without complications Category: Medical Qualifiers: Diabetes mellitus complication status: without complication Diabetes mellitus usp 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 Diabetes mellitus type: type 2 Qualified Code(s): E11.9 - Type 2 diabetes mellitus without complications; Z79.4 - senior living (current) use of insulin (2) Essential hypertension: Code(s): I10 - Essential (primary) hypertension Category: Medical (3) Dyslipidemia: Code(s): E78.5 - Hyperlipidemia, unspecified Category: Medical (4) Postoperative hypothyroidism: Code(s): E89.0 - Postprocedural hypothyroidism Category: Medical (5) Osteopenia: Code(s): M85.80 - Other specified disorders of bone density and structure, unspecified site Category: Medical Plan Plan Patient was informed and verbally consented to the use of an ambient scribe for clinic note documentation during this visit. 1. Type 2 diabetes mellitus without complications E11.9 HCC 19 The patient's diabetes mellitus is managed with Treciva insulin at 10 units daily and Ozempic 2 mg weekly for glycemic control. 2. Other specified disorders of bone density and structure, unspecified site M85.80 Osteopenia is managed with calcium and vitamin D supplementation, following the osteometrial density screening in August. 3. Hyperlipidemia, unspecified E78.5 Hyperlipidemia is managed with atorvastatin 80 mg and ezetimibe. 4. Hypothyroidism, unspecified E03.9 Hypothyroidism is treated with levothyroxine 88 mcg daily, following postoperative hypothyroidism after fibroidectomy last year. 5. Essential (primary) hypertension I10 Hypertension is managed with lisinopril, which was adjusted from 40 mg to 30 mg due to low blood pressure readings. Orders: Orders Microalbumin, Random (w Creat) 4 Months R80.9 - Proteinuria, unspecified Thyroid Stimulating Hormone 4 Months E04.1 - Nontoxic single thyroid nodule Comprehensive [place]. Panel Fast 4 Months E11.9 - Type 2 diabetes mellitus without complications, Z79.4 - termite helper (current) use of insulin AMB Hemoglobin A1c Today Z13.9 - Encounter for screening, unspecified Lipid Panel 4 Months E78.5 - Hyperlipidemia, unspecified Vitamin D 25-OH Total 4 Months E55.9 - Vitamin D deficiency, unspecified Vitamin B12 and Folate 4 Months E53.8 - Deficiency of other specified B group vitamins Medications: New lisinopril 30 mg PO DAILY 90 tabs 1RF 90 days Discontinued lisinopril Discontinued Reason: Patient Completed Course 40 mg PO DAILY 90 days 90 tabs 1RF
[2024-12-08 10:23] VITALS: BP 90/54; PULSE 60; O2SAT 95
[2024-12-08 10:31] VITALS: BP 90/60
== END 2024-12-08 10:48 | disposition home or self-care (01) ==
LOC: HO.HMCH 09:46
PROVIDERS: PCP Internal Medicine; Visit Provider Internal Medicine
DX: E11.9 Type 2 diabetes mellitus without complications (principal); Z79.4 Long term (current) use of insulin; I10 Essential (primary) hypertension; E78.5 Hyperlipidemia, unspecified; E89.0 Postprocedural hypothyroidism; M85.80 Other specified disorders of bone density and structure, unspecified site; Z13.9 Encounter for screening, unspecified

== ENCOUNTER → 2024-12-08 09:45 | Outpatient (BNVA) | payer OTHER, SELFPAY | PROVIDERS: PCP Internal Medicine; Visit Provider Internal Medicine | DX: E11.9 Type 2 diabetes mellitus without complications (principal); I10 Essential (primary) hypertension; E78.5 Hyperlipidemia, unspecified; E89.0 Postprocedural hypothyroidism; M85.80 Other specified disorders of bone density and structure, unspecified site; Z79.4 Long term (current) use of insulin; Z79.899 Other long term (current) drug therapy; Z13.31 Encounter for screening for depression | CPT/HCPCS: 83036; 96127; 99212 ==

== ENCOUNTER 2025-01-12 11:00 | Outpatient (AMB) | payer OTHER, SELFPAY ==
--- NOTE | 2025-01-12 11:08 | MHC.OFFVIS ---
Vital Signs 01/12/25 11:09 Height 5 ft 2 in Weight 111 lb 1.808 oz BMI 20.3 BP 92/62 Blood Pressure Location Lt brachial Position Sitting Pulse 81 Pulse Source Pulse Oximeter Pulse Oximetry (%) 97 Oxygen Delivery Method Room Air Intake Visit Reasons: f/u post-operative hypothyroidism,DM Intake Note: Patient present today for Type 2 Diabetes Mellitus and post-operative hypothyroidism. Last Diabetic eye exam:?She has an appointment on at [place]. Last Podiatry Visit:?She has an appointment for Feb.27. Random Glucose: 107? mg/dl HgA1C: 6.5%? 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 Harvest Contractor Language: Diving Board Assembler Services: Field Crop Harvest Contractor Present Field Crop Harvest Contractor Name: [id number] [place] Information Interpreted: non-clinical & clinical Accompanied by: Self / Same As Patient Allergies No Known Allergies Allergy (Verified 01/12/25 11:16) Medication List - Last Reconciled 01/12/25 by Dasia Ingram MD atorvastatin 80 mg PO BEDTIME 90 days blood pressure monitor As directed blood pressure test kit-medium (inControl Blood Pressure Monitor kit) As directed blood sugar diagnostic (FreeStyle Lite Strips) Use 1 test strip three times per day blood sugar diagnostic As directed blood-glucose meter (FreeStyle Lite Meter kit) As directed blood-glucose sensor (FreeStyle Raymond 3 Plus Sensor device) As directed every 15 days calcium carbonate-vitamin D3 500 mg-10 mcg (400 unit) (Oyster Shell Calcium-Vitamin D3) 1 tab PO BID 90 days cetirizine (All Day Allergy (cetirizine)) 10 mg PO DAILY PRN 90 days ezetimibe 10 mg PO DAILY 90 days glucose (Dex4 Glucose) 4 grams PO Q15M PRN insulin degludec (Tresiba FlexTouch U-100 insulin) 10 units (0.1 mL) subcut QPM 30 days lancets (FreeStyle Lancets) Use 1 lancet three times per day lancets As directed levothyroxine 88 mcg PO DAILY 30 days lisinopril 30 mg PO DAILY 90 days metoprolol succinate ER 25 mg PO DAILY nystatin 1 appl topical BID 2 weeks pen needle, diabetic As directed tid tirzepatide (Mounjaro) 5 mg (0.5 mL) subcut QWEEK HPI Comments Details: 64 year old with type 2 diabetes mellitus and postoperative hypothyroidism with history of NIFTP here today for follow up. Type 2 DM Interval history Doing well, no hospitalisations Previous treatment: actos, metformin She was changed from Lantus to low dose Tresiba in Nov 2023 and Humalog for glucose readings in the 250-300 range. daily glimepiride was discontinued. Ozempic discontinued sometime in summer 2024, insurance denied coverage chnaged to Neil A1c was 12.3% on 10/08/23. a1c 6.4 % POC 03/01/24 HgA1C: 6.2% 08/27/24 6.5 % 12/08/24 [employer] Raymond 3 downloaded from December 30 to 01/12/2025 Time CGM active 100% Average glucose 114 mg/dL G NE 6% Glucose variability 21% Within target range 98% High 2% Very high is 0% Low 0% Very low 0% Interpretation: Excellent glycemic control, some mild postprandial hyperglycemia in the afternoon and evening Current Rx: Tresiba 10 units once in the morning Mounjaro 5 mg weekly on Tuesdays Random Glucose: 107 mg/dl Denies retinopathy Has eyes checked yearly , no retinopathy,Last Diabetic eye exam: 02/2024, has appt in Feb 2025 Last Podiatry Visit: 07/22/24, has appt for Feb 2025 Denies neuropathy, foot exam done 03/01/2024 intact sensation to monofilament, however very poor care for her nails. Nephropathy: on [NICK]. normal microalbumin creatinine July 2024 HLD on atorvastatin 80 mg and Zetia Last LDL 54 as measured on July 2024 [Denies] CAD. Diet: Has met with insurance operations rep. Eats a late breakfast around 11am 2 slice toast with pbj, small glass oj, supper 2 boiled eggs with veg Postoperative hypothyroidism NIFTP She has a longstanding history of a NTMNG She underwent FNA biposy 05/24/[address] Sotelo of the following nodules with the following results: Left mid pole 3.4 cm thyroid nodule: benign (bethesda category II) Left lower pole 1.5 cm thyroid nodule: benign (bethesda category II) Right pole 4.1 cm thyroid nodule: atypia of undetermined significance (bethesda category III), affirma benign She opted to undergo surveillance for her right pole nodule with yearly US. She had a repeat thyroid US 11/29/2020 which revealed significant change of her right mid pole nodule. She then underwent FNA biopsy of this Right mid pole 4.6 cm thyroid nodule by Dr. Savage 06/20/2021, with benign cytology (bethesda category II). Her Right lower pole 1.0 cm thyroid nodule was found to be spongifirm, so no FNA biopsy was indicated. Repeat thyroid US 07/24/2022 reveals significant change in multiple nodules. A repeat ultrasound was performed Oct 2022 to evaluate the thyroid gland. She was found to have multiple large nodules. Her right mid to lower pole nodule does extend substernally and she did exhibit a positive naheed sign from this. Recc total thyroidectomy. status post near total thyroidectomy August [address] Geoff Sexton. 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 She is currently replaced on 88 mcg levothyroxine. She appears to be clinically euthyroid. Most recent TSH normal July 2024 Physical exam General: sitting comfortably in no acute distress HEENT: normocephalic/atraumatic, , moist oral mucosa Neck: supple, symmetrical, no palpbale masses , no dorsocervical or supraclavicular fat pads Cardiac: normal heart sounds Pulm: normal breath sounds B/L, no added breath sounds Abd: not distended, no tenderness Extremities: no edema, no signs of myxedema Neuro: AAO x3, Speech: normal, no facial droop, moving all 4 extremities Laboratory Tests 07/02/23 10/08/23 02/01/24 15:30 13:43 10:49 Creatinine 0.75 Estimated GFR > 60 Random Glucose 114 Hgb A1c (Clinic) 6.7 H 12.3 H Triglycerides 60 Cholesterol 101 LDL Cholesterol, Calc 48 HDL Cholesterol 41 TSH 1.75 Free T4 1.35 Urine Creatinine Urine Microalbumin Microalb/Creat Ratio 02/01/24 10:50 Creatinine Estimated GFR Random Glucose Hgb A1c (Clinic) Triglycerides Cholesterol LDL Cholesterol, Calc HDL Cholesterol TSH Free T4 Urine Creatinine 159.76 Urine Microalbumin 10.0 Microalb/Creat Ratio 6.2 Laboratory Tests 04/22/24 05/31/24 08:05 11:07 POC Glucose 126 H Hgb A1c (Clinic) 6.6 H Laboratory Tests 08/27/24 08/27/24 10:08 10:11 Sodium 142 Potassium 3.8 Creatinine 0.63 Estimated GFR > 60 Random Glucose 126 H Hemoglobin A1c % 6.2 H Calcium 9.4 AST 38 H ALT 61 H Triglycerides 49 Cholesterol 101 LDL Cholesterol, Calc 54 HDL Cholesterol 38 L TSH 0.97 Free T4 1.14 Urine Creatinine 142.65 Urine Microalbumin 9.0 Microalb/Creat Ratio 6.3 PFSH Medical History Vitamin D deficiency Candidal intertrigo Physical exam Developmental delay, mild Thyroid nodule Non-toxic multinodular goiter Palpitations Goiter Overweight (BMI 25.0-29.9) Dyslipidemia Diabetes mellitus Essential hypertension Surgical History Hx of colonoscopy H/O thyroidectomy Family History Father CAD (coronary artery disease) HTN (hypertension) Mother CAD (coronary artery disease) H/O heart valve replacement with bioprosthetic valve HTN (hypertension) Diabetes Gastrointestinal malignancy Sister HTN (hypertension) Diabetes Atrial fibrillation Familial hyperlipidemia Social History Household Members: Family Household Members Other:: sister Housing: Apartment Housing Other:: duplex Are you a primary manager medicare marketing to a significant other at home: No Do you presently have visiting nurse or other home services: No Alcohol intake: never Patient Tobacco Use Status: Never used Tobacco e-Cigarette/Vaping Use: Never Used Second Hand Smoke Exposure: No service: No Current occupational status: disabled Cognitive needs: No Hearing needs: No Vision needs: No Office Procedures Glucose Monitoring Details Details: See HPI 45242 - Glucose monitoring, continuous-physician I&R Procedure code (CPT) selection complete Assessment & Plan Assessment & Plan (1) Postoperative hypothyroidism: Code(s): E89.0 - Postprocedural hypothyroidism Category: Medical Plan: Patient with a history of nontoxic multinodular goiter, with multiple benign FNA results of several nodules, was noted to have compressive symptoms and underwent total thyroidectomy August 2023 with pathology revealing 0.15 cm NIFTP in the left lobe. Clinically euthyroid and TSH in good range after near-total thyroidectomy , currently on levothyroxine 88 mcg daily. We reviewed : NIFTP: noninvasive follicular thyroid neoplasm with papillary-like nuclear features (NIFTP) NIFTP is a new nomenclature since 2017 and thus far it is considered to have indolent biological behavior, lack of metastasis or recurrence. While thyroid surgery is required to distinguish NIFTP from the encapsulated with invasive subtype, therapy beyond thyroid lobectomy is usually not required (ie, thyroid-stimulating hormone [TSH] suppression and radioactive iodine ablation is not required ? With respect to the follow?up intensity for patients subsequent to neoplasm with papillary like nuclear features (NIFTP) resection. NIFTP is understood as a premalignant lesion Usually we recommend that, until longer term experience with this new entity is gained, the patient should still be followed yearly with neck exam. Neck exam done today was unremarkable. One can also consider annual measurements of thyroglobulin (Tg) and occasional imaging by neck ultrasonography (US) howeevr guidelines are unclear about this as of yet. 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 She had worsened control over the earlier part of the this year and during summer her A1c was up to 12.3% in September 2023. after starting Ozempic and with modifications to her insulin regimen, A1c has improved significantly. Has been stable was 6.5% in November 2024, previously was 6.2% in July 2024 which is stable from 6.4% POC 03/01/2024. Ozempic was denied by insurance in summer 2024 when she is now on Mounjaro 5 mg weekly since then. I reviewed her CGM data which shows excellent glycemic control. If she needs further agents, can consider adding an SGLT2 inhibitor. However for now she is doing good plus blood pressures have been on the lower side in the past. I spoke with the patient that she is doing rather well with her glycemic control and if she wants we can choose to follow her up WD 6 months, however she expressed some hesitation regarding long follow up. At this point I will see her back in 4-5 months months. Plan: -continue insulin Tresiba 10 units daily -continue Mounjaro 5 mg weekly -continue follow up with Podiatry -up to date with eye appointment, no history of retinopathy, emphasized importance of annual eye exams -follow up in 4-5 months (3) Dyslipidemia: Code(s): E78.5 - Hyperlipidemia, unspecified Category: Medical Plan: LDL from July 2024 goal at 54. Goal is less than 70 mg/dL. Continue atorvastatin and Zetia. Ordered lipid panel to be done prior to next follow up (4) Essential hypertension: Code(s): I10 - Essential (primary) hypertension Category: Medical Plan: Blood pressure at goal. Continue metoprolol, lisinopril. Plan I spent 30 minutes in reviewing the record, seeing the patient and documenting in the medical record. Orders: Orders Comprehensive Met. Panel 05/15/25 E11.9 - Type 2 diabetes mellitus without complications, E78.5 - Hyperlipidemia, unspecified, E89.0 - Postprocedural hypothyroidism, Z79.4 - [facility] (current) use of insulin Microalbumin, Random (w Creat) 05/15/25 E11.9 - Type 2 diabetes mellitus without complications, E78.5 - Hyperlipidemia, unspecified, E89.0 - Postprocedural hypothyroidism, Z79.4 - [facility] (current) use of insulin Hemoglobin A1c 05/15/25 E11.9 - Type 2 diabetes mellitus without complications, E78.5 - Hyperlipidemia, unspecified, E89.0 - Postprocedural hypothyroidism, Z79.4 - [facility] (current) use of insulin Complete Blood Count no Diff 05/15/25 E11.9 - Type 2 diabetes mellitus without complications, E78.5 - Hyperlipidemia, unspecified, E89.0 - Postprocedural hypothyroidism, Z79.4 - [facility] (current) use of insulin Thyroid Stimulating Hormone 05/15/25 E11.9 - Type 2 diabetes mellitus without complications, E78.5 - Hyperlipidemia, unspecified, E89.0 - Postprocedural hypothyroidism, 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 Free T4 (Free Thyroxine) 05/15/25 E11.9 - Type 2 diabetes mellitus without complications, E78.5 - Hyperlipidemia, unspecified, E89.0 - Postprocedural hypothyroidism, Z79.4 - [facility] (current) use of insulin Lipid Panel 05/15/25 E11.9 - Type 2 diabetes mellitus without complications, E78.5 - Hyperlipidemia, unspecified, E89.0 - Postprocedural hypothyroidism, 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 AMB Glucose Monitoring Today E11.9 - Type 2 diabetes mellitus without complications, 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 Medications: Refilled tirzepatide (Mounjaro) 5 mg (0.5 mL) subcut QWEEK 2 mL 8RF Patient Instructions: Do fasting blood work and urine test before next appointment 1-2 weeks before your nex tappt in May 2025 continue Tresiba 10 units daily Continue Mounjaro 5 mg weekly injection Coding Level of Care Code Est Pt Level 4 (30200) Diagnoses Postoperative hypothyroidism E89.0 Type 2 diabetes mellitus without complication, with long-term current use of insulin E11.9; Z79.4 Diabetes mellitus type: type 2 Diabetes mellitus intermission coordinator insulin use: with intermission coordinator use Diabetes mellitus complication status: without complication Dyslipidemia E78.5 Essential hypertension I10 CPT Codes Details - CPT: 42687 - Glucose monitoring, continuous-physician I&R ([id number]) Time Spent (min) 30
[2025-01-12 11:09] VITALS: BP 92/62; PULSE 81; O2SAT 97; BMI 20.3
[2025-01-12 11:28] LABS: Glucose, Whole Blood 107 mg/dL (60-115)
== END 2025-01-12 11:38 | disposition home or self-care (01) ==
LOC: HO.ENCR 11:01
PROVIDERS: PCP Internal Medicine; Visit Provider Student in an Organized Health Care Education/Training Program
DX: E89.0 Postprocedural hypothyroidism (principal); E11.9 Type 2 diabetes mellitus without complications; Z79.4 Long term (current) use of insulin; E78.5 Hyperlipidemia, unspecified; I10 Essential (primary) hypertension
CPT/HCPCS: 95251; 99214

== ENCOUNTER → 2025-01-12 11:00 | Outpatient (BNVA) | payer OTHER, SELFPAY | PROVIDERS: PCP Internal Medicine; Visit Provider Student in an Organized Health Care Education/Training Program | DX: E89.0 Postprocedural hypothyroidism (principal); E11.9 Type 2 diabetes mellitus without complications; Z79.4 Long term (current) use of insulin; E78.5 Hyperlipidemia, unspecified; I10 Essential (primary) hypertension | CPT/HCPCS: 82947; 99212 ==

== ENCOUNTER 2025-03-25 09:38 | Outpatient (REF) | payer OTHER, SELFPAY ==
--- NOTE | ~2025-03-25 | MM_ITS ---
EXAMINATION: MM SCREENING DIGITAL BREAST TOMOSYNTHESIS, BILATERAL CLINICAL INFORMATION: Screening. Asymptomatic. COMPARISON: Mammography: Comparison is made with available priors TECHNIQUE: Digital breast mammography with tomosynthesis is performed in both the craniocaudal and mediolateral oblique views along with computer-aided detection (CAD). FINDINGS: There are scattered areas of fibroglandular density. Left: Asymmetry retroareolar region on MLO view. No suspicious calcifications or other abnormal findings. Right: There are no significant masses, abnormal calcifications, or other abnormalities. MM/MM tomosynthesis screening BI IMPRESSION: Additional imaging is recommended ASSESSMENT: BI-RADS Category 0: Incomplete - Need additional Imaging Evaluation RECOMMENDATION: 1. Additional views of the left breast. 2. Targeted ultrasound if warranted after review of the additional views. 3. Radiology department staff will contact the patient for additional imaging. Additional Imaging required Electronically signed by: Nancy Lee DO 03/28/2025 02:56 PM [facility] [place] [place]
--- OUTSIDE RECORDS SUMMARY | 2025-03-25 09:41 | XMS_ITS | Continuity of Care Document ---
Author Organization [facility], [facility] Address [address] [address] Assessment No assessment recorded. Plan of Treatment Reminders Order Date Submit Date Provider Last Modified By Organization Details Last Modified Time Details Appointments [facility] 2025 10:30A M Migel Cantor DPM Not available Not available Not available Lab None recorded. Referral None recorded. Procedures None recorded. Surgeries None recorded. Imaging None recorded. Medication Orders None recorded. Patient TargetsNo targets recorded. Patient InstructionsNo instructions recorded. Reason for Referral None Reported. Problems Name Problem SNOMED Code Status Onset Date Resolution Date Notes Provider Name and Address Organization Details Recorded Time Onychomycos is 223101010 Active 2024 Migel Cantor DPM [address] [facility] [place], [address], [facility] 11:32:29 Peripheral neuropathy due to type 2 diabetes mellitus 1684461171155 Active 2024 Migel Cantor DPM [address] [facility] [place], [address], [facility] 11:32:30 Pain of toe of right foot 2325553708274 01 Active 2024 Migel Cantor DPM [address] [facility] [place], [address], [facility] 11:32:32 Pain of toe of left foot 4244087507080 08 Active 2024 Migel Cantor DPM [address] [facility] [place], [address], [facility] 5 11:32:34 Problem Notes None recorded. Procedures Surgical History Date Name Laterality Status Provider Name and Address Organization Details Recorded Time Nail Debridement completed Migel Cantor DPM [address] [place], [address], [facility] 02/27/2025 11:32:20 Imaging Results None recorded. Procedure Notes None recorded. Medical Equipment None Reported. Medications Name Sig Start Date Stop Date Status Note LastModified by Organization Details LastModified Time oseltamivir 75 mg capsule TAKE 1 CAPSULE BY MOUTH EVERY 12 HOURS X 5 DAYS active Not Available Not Available No t Available lisinopril 40 mg tablet TAKE 1 TABLET BY MOUTH EVERY DAY active Not Available Not Available No t Available Ozempic 2 mg/dose (8 mg/3 mL) subcutaneous pen injector INJECT 2 MG (0.75 ML) SUBCUTANEOU SLY EVERY WEEK active Not Available Not Available No t Available Copanion Raymond 3 Sensor device DIRECTED active Not Available Not Available Not Available Vitals None Recorded Social History None recorded. Functional Status None recorded. Mental Status None recorded. Family History Nothing Reported. Medical History No medical history recorded. Gynecological HistoryNo gynecological history recorded. Obstetrics History GPAL:G 0 P 0 0 0 0 Past Encounters Encounter ID Performer Location Encounter Start Date Encounter Closed Date Diagnosis/Indication Diagnosis SNOMED-CT Code Diagnosis ICD10 Code Diagnosis IMO Codes Diagnosis Note [id number] [address] [facility] [address] [place] [address] 02/27/2025 10:32:43 03/08/2025 11:24:33 Onychomycosis 277439926 B35.1 44373 Peripheral neuropathy due to type 2 diabetes mellitus 2707699251 107 E11.42 5504897 Pain of to e of right foot 4435230158 13482 M79.028 6527921 Pain of to e of left foot 8221597190 43240 M79.514 6103539 Health Concerns Section Related Observation LastModified by Organization Detai ls LastModified Time None Recorded Concern Status LastModified by Organization Details LastModified Time None Recorded Payers Encounter Date Sequence Insurance Name Policy Number Policy Ashby Covered Member ID Ashby Member ID Guarantor Name 02/27/2025 1 [facility] - HEALTH NET PLAN (MEDICAID HMO) REGIS alvarez [id number] Notes Date Note Type Note Provider Name and Address Organization Details Recorded Time 02/27/2025 text/html The patient is seen today for a chief concern of painful, elongated, thickened toenails. The patient reports the condition has been present for years. The patient is unable to cut her nails on her own. Migel Cantor DPM [address] [place] [address], [phone], [facility] 02/27/2025 11:33:13 OBGyn Episode No OBEpisode recorded.
--- OUTSIDE RECORDS SUMMARY | 2025-03-25 09:41 | XMS_ITS | Data Portability ---
Author Organization [facility] Address [address] [place] [address] Assessment No assessment recorded. Plan of Treatment [...] Address Organization Details Recorded Time Onychomycos is 144968128 Active 2024 Migel Cantor DPM [address] [place], [address], [facility] 11:32:29 Peripheral neuropathy due to type 2 diabetes mellitus 2415319599783 Active 2024 Migel Cantor DPM [address] [facility] [place], [address], [facility] 11:32:30 Pain of toe of right foot 3550222843071 01 Active 2024 Migel Cantor DPM [address] [facility] [place], [address], [facility] 11:32:32 Pain of toe of left foot 8693570873344 08 Active 2024 Migel Cantor DPM [address] [facility] [place], [address] 11:32:34 Problem Notes None recorded. Procedures Surgical History Date Name Laterality Status Provider Name and Address Organization Details Recorded Time Nail Debridement completed Migel Cantor DPM [address] [place], [address], [facility] 02/27/2025 11:32:20 Imaging Results None [...] Not Available Not Available No t Available FreeStyle Raymond 3 Sensor device DIRECTED active Not [...] [facility] [address] [facility] [address] [place] [address] 02/27/2025 10:32:43 03/08/2025 11:24:33 Onychomycosis 411466757 B35.1 76017 Peripheral neuropathy due to type 2 diabetes mellitus 1313335137 107 E11.42 9358606 Pain of to e of right foot 3585566024 55651 M79.984 9920267 Pain of to e of left foot 8519115598 92245 M79.866 3151055 Health Concerns Section Related Observation LastModified by Organization Detai ls LastModified Time None Recorded Concern Status LastModified by Organization Details LastModified Time None Recorded Advance Directives Directive None Recorded Payers Insurance Date Sequence Insurance Name Policy Number Policy Ashby Covered Member ID Ashby Member ID Guarantor Name 03/08/2025 1 [facility] - HEALTH NET PLAN (MEDICAID HMO) REGIS alvarez [id number] Notes Date Note Type Note Provider Name and Address Organization Details Recorded Time 02/27/2025 text/html The patient is seen today for a chief concern of painful, elongated, thickened toenails. The patient reports the condition has been present for years. The patient is unable to cut her nails on her own. Migel Cantor DPM [address] [place] [address], [phone], [facility] 02/27/2025 11:33:13 OBGyn Episode No OBEpisode recorded.
== END 2025-03-25 09:39 | disposition home or self-care (01) ==
LOC: HO.MAMMO 09:38
PROVIDERS: PCP Internal Medicine; Visit Provider Internal Medicine
DX: Z12.31 Encounter for screening mammogram for malignant neoplasm of breast (principal)
CPT/HCPCS: 77063; 77067

== ENCOUNTER → 2025-03-25 09:45 | Outpatient (BNV) | payer OTHER, SELFPAY | PROVIDERS: PCP Internal Medicine; Visit Provider Internal Medicine | DX: Z12.31 Encounter for screening mammogram for malignant neoplasm of breast (principal) | CPT/HCPCS: 77063; 77067 ==